=== PATIENT | male | born 1945 | race Caucasian/White ===

== ENCOUNTER 2021-02-09 11:12 | Inpatient (IN) | payer OTHER ==
[2021-02-09 11:35] LABS: Absolute Lymphocytes (CBC) 3.1 K/uL (0.7-4.9); Basophils % 0.8 % (0-1.3); Hematocrit 36.5 % (39.6-49.0); Lymphocytes % 37.4 % (15.3-44.8); MPV 7.7 fL (7.6-11.3); RBC Red Blood Cell Count 3.78 M/uL (4.33-5.43)
[2021-02-09 11:45] LABS: Protime INR 1.04
[2021-02-09 12:03] LABS: BUN Blood Urea Nitrogen 20 mg/dL (7-18); Bicarbonate 26 mmol/L (21-32); Glucose Level 121 mg/dL (74-106); NT PRO-BNP 185 pg/mL (<450); Potassium 3.7 mmol/L (3.5-5.1); Sodium Level 142 mmol/L (136-145); Troponin (Emerg Dept Use Only) < 0.02 ng/mL (0.0-0.045)
--- NOTE | 2021-02-09 12:50 | RAD REPORT ---
EXAM DESCRIPTION: CTAngio Aorta For Dissection - 02/09/2021 12:33 pm CLINICAL HISTORY: CHEST PAIN COMPARISON: No comparisons TECHNIQUE: CT of the chest, abdomen, and pelvis was performed. All CT scans are performed using dose optimization technique as appropriate and may include automated exposure control or mA/KV adjustment according to patient size. FINDINGS: Thorax: Chest Wall: No abnormal mass Lungs: Paraseptal emphysema. Dependent ground-glass opacities in the right lower lobe which may refle ct atelectasis. Left upper lobectomy. Pleura: No effusions or pneumothorax. Briana/Mediastinum: No lymphadenopathy. Thoracic Aorta: No aneurysm. Heart: Normal size. Mild coronary artery calcifications. Abdomen/Pelvis: Liver: No acute abnormality or suspicious lesions. Biliary: No biliary ductal dilatation. Stomach: Gastric wall thickening. There is discontinuity along the greater curvature of the stomach i n connection with the free air. This is suspicious for a gastric ulcer with perforation. Duodenum: No significant focal abnormality. Pancreas: No significant abnormality. Spleen: No significant abnormality. Adrenal: No suspicious lesions. Kidney/ureter: No hydronephrosis. No renal calculi. Too small to characterize and/or benign appearing renal lesions are noted. Retroperitoneum: No retroperitoneal adenopathy. Vascular: No aneurysm. Atherosclerosis. Bowel: No significant focal abnormality. Peritoneum: Moderate volume of free air. Small volume of ascites. No abscess identified . Bladder: Grossly unremarkable. Reproductive: No masses. Bones: No acute fracture. Multilevel degenerative changes are present in the spine. Severe central sp inal stenosis as a result of a disc bulge dorsal spurring at L5-S1. Other: n/a IMPRESSION: Pneumoperitoneum with findings concerning for gastric perforation. Recommend surgical co nsultation. No acute findings in the chest. No aortic aneurysm, aortic dissection, or pulmonary embolus identifie d. Discussed with Dada in the ED at 1240 on 02/09/21
--- NOTE | 2021-02-09 13:05 | ER ---
Nurse's Notes [facility] Name: Kyle Walker Age: 75 yrs Sex: Male : 1945 Arrival Date: 02/09/2021 Time: 11:15 Bed 8 Private MD: Diagnosis: Acute gastric ulcer with perforation Presentation: 02/09 11:15 Chief complaint: Patient states: CP and SOB began today while building a deck in his [facility] backyard (has been doing this past 3 days). Pain increases with coughing. Coronavirus screen: Vaccine status: Patient reports being unvaccinated. Client denies travel out of the [place] in the last 14 days. congestion, cough unrelated to allergies, shortness of breath, Client presents with at least one sign or symptom that may indicate coronavirus-19. Standard/surgical mask placed on the client. Ebola Screen: Patient denies travel to an Ebola-affected area in the 21 days before illness onset. Initial Sepsis Screen: Does the patient meet any 2 criteria? No. Patient's initial sepsis screen is negative. Does the patient have a suspected source of infection? No. Patient's initial sepsis screen is negative. Risk Assessment: Do you want to hurt yourself or someone else? Patient reports no desire to harm self or others. Onset of symptoms was February 09, 2021. 11:15 Method Of Arrival: EMS: [facility] 11:15 Acuity: YOLANDA 3 1 11:19 Chief complaint: EMS states: 2 SL nitro's, 324mg aspirin, 50 mcg fentanyl, 1 L NS bolus.ll1 Historical: - Allergies: 11:17 Codeine; ll1 - PMHx: 11:17 COPD; PTSD; 1 - PSHx: 11:17 RLL removed; ll1 - Immunization history:: Client reports having NOT received the Covid vaccine. - Social history:: Smoking status: Patient reports the use of cigarette tobacco products, smokes one pack cigarettes per day. - Family history:: not pertinent. - Hospitalizations: : No recent hospitalization is reported. Screenin:19 Abuse screen: Denies threats or abuse. Nutritional screening: No deficits noted. ll1 Tuberculosis screening: No symptoms or risk factors identified. 14:48 Fall Risk IV access (20 points). Total Farris Fall Scale indicates No Risk (0-24 pts). ll1 Assessment: 11:20 General: Appears uncomfortable, ill, Behavior is calm, cooperative, appropriate for ll1 age. Pain: Complains of pain in chest Pain radiates to back Pain began 1 day ago. Neuro: No deficits noted. Cardiovascular: Reports chest pain, shortness of breath, Heart tones S1 S2 Capillary refill < 3 seconds JVD is absent Patient's skin is warm and dry. Rhythm is regular Chest pain. Respiratory: Reports shortness of breath Airway is patent Trachea midline Respiratory effort is even, unlabored, Respiratory pattern is regular, symmetrical, Breath sounds are clear bilaterally. GI: Abdomen is flat, Bowel sounds present X 4 quads. Reports upper abdominal pain. 12:20 Reassessment: No changes from previously documented assessment. Patient and/or family ll1 updated on plan of care and expected duration. Pain level reassessed. 13:20 Reassessment: No changes from previously documented assessment. Patient and/or family ll1 updated on plan of care and expected duration. Pain level reassessed. Patient is alert, oriented x 3, equal unlabored respirations, skin warm/dry/pink. 14:20 Reassessment: No changes from previously documented assessment. Patient and/or family ll1 updated on plan of care and expected duration. Pain level reassessed. 14:47 Reassessment: No changes from previously documented assessment. Patient and/or family ll1 updated on plan of care and expected duration. Pain level reassessed. Patient is alert, oriented x 3, equal unlabored respirations, skin warm/dry/pink. Dr. Jarquin at bedside. Going to surgery. Vital Signs: 11:15 BP 138 / 75; Pulse 56; Resp 17; Pulse Ox 98% on R/A; Pain 8/10; ll1 11:21 Temp 97.6; Weight 77.11 kg; Height 6 ft. 3 in. (190.50 cm); ll1 13:10 BP 126 / 83; Pulse 74; Resp 17; Pulse Ox 99% ; ll1 14:34 BP 113 / 72; Pulse 66; Resp 21; Pulse Ox 98% ; ll1 14:46 BP 113 / 72; Pulse 72; Resp 18; Temp 98.7; Pulse Ox 97% on 2 lpm NC; Pain 6/10; ll1 11:21 Body Mass Index 21.25 (77.11 kg, 190.50 cm) 1 ED Course: 11:15 Patient arrived in ED. ll1 11:16 Son Cortés MD is Attending Physician. rn 11:17 Triage completed. 1 11:18 Arm band placed on Patient placed in an exam room, on a stretcher. ll1 11:18 Maintain EMS IV. Dressing intact. Good blood return noted. Site clean \T\ dry. Gauge \T\ ll 1 site: 18 G R FA. 11:21 Vivi Thomas, RN is Primary Nurse. 1 11:22 Patient has correct armband on for positive identification. Placed in gown. Bed in low mh5 position. Call light in reach. Side rails up X2. Warm blanket given. Pillow given. air sampling and monitoring on. Pulse ox on. NIBP on. 11:22 Initial lab(s) drawn, by me, sent to lab. Flu and/or RSV swab sent to lab. 5 12:13 XRAY Chest (1 view) In Process Unspecified. EDMS 12:33 CT Aorta for Dissection In Process Unspecified. EDMS 13:04 Omayra Quiroz MD is Hospitalizing Provider. rn 13:11 No provider procedures requiring assistance completed. Oxygen administration via nasal ll1 cannula \T\ 2L/min. 14:48 Patient admitted, IV remains in place. 1 Administered Medications: 12:49 Drug: fentaNYL (PF) 50 mcg {Note: rass 0.} Route: IVP; Site: right forearm; 1 13:10 Follow up: Response: No adverse reaction; Pain is decreased; RASS: Alert and Calm (0) [facility] 13:10 Drug: Zosyn (piperacillin-tazobactam) 3.375 grams Route: IVPB; Infused Over: 60 mins; 1 Site: right antecubital; 14:07 Follow up: Response: No adverse reaction; IV Status: Completed infusion; IV Intake: ll1 500ml 13:23 Drug: NS 0.9% 500 ml Route: IV; Rate: bolus; Site: right forearm; 1 13:44 Follow up: Response: No adverse reaction; IV Status: Completed infusion; IV Intake: ll1 500ml 13:44 Drug: fentaNYL (PF) 50 mcg {Note: rass 0.} Route: IVP; Site: right forearm; [facility] 14:08 Follow up: Response: No adverse reaction; Pain is decreased; RASS: Alert and Calm (0) ll1 Intake: 13:44 IV: 500ml; Total: 500ml. ll1 14:07 IV: 500ml; Total: 1000ml. ll1 Outcome: 13:05 Decision to Hospitalize by Provider. rn 14:48 Admitted to OR accompanied by tech, via stretcher. ll1 14:48 Condition: stable 14:48 Instructed on the need for admit, Demonstrated understanding of instructions. 15:03 Patient left the ED. ss Signatures: Dispatcher [employer] EDSon Mane MD MD rn Smirch, Shelby, RN RN ss Martinez, Maria [facility] Vivi Thomas RN RN ll1 Corrections: (The following items were deleted from the chart) 11:27 11:17 Social history: Smoking status: Patient reports the use of cigarette tobacco ll1 products, smokes one-half pack cigarettes per day, ll1
--- NOTE | 2021-02-09 13:06 | EDPHYS ---
Physician Documentation [facility] Name: Kyle Walker Age: 75 yrs Sex: Male : 1945 Arrival Date: 02/09/2021 Time: 11:15 Bed 8 Private MD: ED Physician Son Cortés HPI: 02/09 11:18 This 75 yrs old Male presents to ER via EMS with complaints of Chest Pain, rn Shortness Of Breath. 11:18 The patient or guardian reports chest pain that is located primarily in the anterior rn chest wall, left. Onset: just prior to arrival. The pain does not radiate. Associated signs and symptoms: Pertinent positives: shortness of breath, Pertinent negatives: abdominal pain, cough, lower extremity swelling, palpitations, syncope, vomiting. The chest pain is described as aching, sharp. Duration: The patient or guardian reports a single episode, that is still ongoing. Modifying factors: The symptoms are alleviated by nothing. the symptoms are aggravated by cough, deep breath. Severity of pain: At its worst the pain was moderate in the emergency department the pain is unchanged. The patient has not experienced similar symptoms in the past. The patient has not recently seen a physician. Patient reports digging post holes and backyard working on a deck for the last 3 days, has felt okay, upon using post hole triggers began to have left-sided chest pain, moves to the right, associated with shortness of breath, worse with deep breath. No fever/runny nose/productive cough. States has not felt sick or ill recently. Denies abdominal pain. Historical: - Allergies: 11:17 Codeine; ll1 - PMHx: 11:17 COPD; PTSD; ll1 - PSHx: 11:17 RLL removed; ll1 - Immunization history:: Client reports having NOT received the Covid vaccine. - Social history:: Smoking status: Patient reports the use of cigarette tobacco products, smokes one pack cigarettes per day. - Family history:: not pertinent. - Hospitalizations: : No recent hospitalization is reported. ROS: 11:20 Constitutional: Negative for fever, chills, and weight loss, Eyes: Negative for injury, rn pain, redness, and discharge, Neck: Negative for injury, pain, and swelling, Cardiovascular: Positive for chest pain Respiratory: Positive for shortness of breath Abdomen/GI: Negative for abdominal pain, nausea, vomiting, diarrhea, and constipation, Back: Negative for injury and pain, MS/Extremity: Negative for injury and deformity, Skin: Negative for injury, rash, and discoloration, Neuro: Negative for headache, weakness, numbness, tingling, and seizure. Exam: 11:20 Constitutional: This is a well developed, well nourished patient who is awake, alert, rn appears uncomfortable Head/Face: Normocephalic, atraumatic. Eyes: Pupils equal round and reactive to light, extra-ocular motions intact. Lids and lashes normal. Conjunctiva and sclera are non-icteric and not injected. Cornea within normal limits. Periorbital areas with no swelling, redness, or edema. ENT: No stridor Cardiovascular: Bradycardic, regular rhythm. No pulse deficits. Respiratory: No increased work of breathing, no retractions or nasal flaring. Abdomen/GI: Soft, non-tender Skin: Warm, dry MS/ Extremity: Pulses equal, no cyanosis. Neurovascular intact. Full, normal range of motion. Equal circumference. Neuro: Awake and alert, GCS 15 14:21 ECG was reviewed by the Attending Physician. rn Vital Signs: 11:15 BP 138 / 75; Pulse 56; Resp 17; Pulse Ox 98% on R/A; Pain 8/10; ll1 11:21 Temp 97.6; Weight 77.11 kg; Height 6 ft. 3 in. (190.50 cm); ll1 13:10 BP 126 / 83; Pulse 74; Resp 17; Pulse Ox 99% ; ll1 14:34 BP 113 / 72; Pulse 66; Resp 21; Pulse Ox 98% ; ll1 14:46 BP 113 / 72; Pulse 72; Resp 18; Temp 98.7; Pulse Ox 97% on 2 lpm NC; Pain 6/10; ll1 11:21 Body Mass Index 21.25 (77.11 kg, 190.50 cm) ll1 MDM: 11:16 Patient medically screened. rn 11:17 ED course: Patient given fentanyl and aspirin as well as nitro by EMS. Still having rn left-sided chest pain as well as right-sided chest pain.. 13:01 Differential diagnosis: acute myocardial infarction, acute pericarditis, coronary rn artery disease costochondritis, esophagitis, gastritis, gastroesophageal reflux disease (GERD), pancreatitis, pleurisy, pneumonia, pneumothorax, thoracic aortic disection, gastric ulcer, gastric perforation. Data reviewed: vital signs, nurses notes, lab test result(s), radiologic studies, CT scan. Data interpreted: environmental monitoring technician: rate is 56 beats/min, rhythm is regular, sinus bradycardia, with no ectopy, Interpretation: bradycardia, Pulse oximetry: on room air is 98 %. Interpretation: normal. Counseling: I had a detailed discussion with the patient and/or guardian regarding: the historical points, exam findings, and any diagnostic results supporting the discharge/admit diagnosis, lab results, radiology results, the need for further work-up and treatment in the hospital. Response to treatment: the patient's symptoms have mildly improved after treatment, and as a result, I will admit patient. Admission orders: after a detailed discussion of the patient's condition and case, the admit orders are written by me. ED course: Consulted with Dr. Jarquin for gastric perforation. Kai ordered. NPO.. 02/09 11:17 Order name: Basic Metabolic Panel; Complete Time: 12:04 rn 02/09 11:17 Order name: CBC with Diff; Complete Time: 12:04 rn 02/09 11:17 Order name: NT PRO-BNP; Complete Time: 12:04 rn 02/09 11:17 Order name: PT-INR; Complete Time: 12:04 rn 02/09 11:17 Order name: Troponin (emerg Dept Use Only); Complete Time: 12:04 rn 02/09 11:17 Order name: XRAY Chest (1 view) rn 02/09 11:17 Order name: EKG; Complete Time: 11:18 rn 02/09 11:17 Order name: CT Aorta for Dissection; Complete Time: 12:54 rn 02/09 12:58 Order name: SARS-COV-2 RT PCR EDOR 02/09 11:17 Order name: Cardiac monitoring; Complete Time: 11:30 rn 02/09 11:17 Order name: EKG - Nurse/Tech; Complete Time: 11:30 rn 02/09 11:17 Order name: IV Saline Lock; Complete Time: 11:22 rn 02/09 11:17 Order name: Labs collected and sent; Complete Time: 11: rn 02/09 11:17 Order name: O2 Per Protocol; Complete Time: 11:22 rn 02/09 11:17 Order name: O2 Sat Monitoring; Complete Time: 11: rn 02/09 12:44 Order name: NPO; Complete Time: 12:50 rn EC:21 Rate is 46 beats/min. Rhythm is regular. QRS [place] is Normal. [place] interval is normal. QRS rn interval is normal. QT interval is normal. No Q waves. T waves are Normal. No ST changes noted. Clinical impression: Sinus bradycardia. Interpreted by me. Reviewed by me. Administered Medications: 12:49 Drug: fentaNYL (PF) 50 mcg {Note: rass 0.} Route: IVP; Site: right forearm; ll1 13:10 Follow up: Response: No adverse reaction; Pain is decreased; RASS: Alert and Calm (0) ll1 13:10 Drug: Zosyn (piperacillin-tazobactam) 3.375 grams Route: IVPB; Infused Over: 60 mins; ll1 Site: right antecubital; 14:07 Follow up: Response: No adverse reaction; IV Status: Completed infusion; IV Intake: ll1 500ml 13:23 Drug: NS 0.9% 500 ml Route: IV; Rate: bolus; Site: right forearm; ll1 13:44 Follow up: Response: No adverse reaction; IV Status: Completed infusion; IV Intake: ll1 500ml 13:44 Drug: fentaNYL (PF) 50 mcg {Note: rass 0.} Route: IVP; Site: right forearm; ll1 14:08 Follow up: Response: No adverse reaction; Pain is decreased; RASS: Alert and Calm (0) ll1 Disposition: 13:01 Critical Care:. rn Disposition Summary: 02/09/21 13:05 Hospitalization Ordered Hospitalization Status: Inpatient Admission rn Provider: Omayra Quiroz rn Location: Telemetry/MedSurg (Inpatient) rn Condition: Fair rn Problem: new rn Symptoms: have improved rn Bed/Room Type: Standard rn Room Assignment: rn Diagnosis - Acute gastric ulcer with perforation rn Forms: - Medication Reconciliation Form rn - SBAR form glove turner time excluding procedures: 13:01 Critical care time: Bedside Care: 30 minutes, Consultation: 5 minutes, Family rn Intervention: 5 minutes. Total time: 40 minutes Signatures: Dispatcher [employer] EDMS Cortés, Son, MD MD rn William, Lynsay, RN RN ll1 Corrections: (The following items were deleted from the chart) 11:22 11:20 Constitutional: This is a well developed, well nourished patient who is awake, rn alert, appears uncomfortable Head/Face: Normocephalic, atraumatic. Eyes: Pupils equal round and reactive to light, extra-ocular motions intact. Lids and lashes normal. Conjunctiva and sclera are non-icteric and not injected. Cornea within normal limits. Periorbital areas with no swelling, redness, or edema. ENT: No stridor Cardiovascular: Regular rate and rhythm. No pulse deficits. Respiratory: No increased work of breathing, no retractions or nasal flaring. Abdomen/GI: Soft, non-tender Skin: Warm, dry MS/ Extremity: Pulses equal, no cyanosis. Neurovascular intact. Full, normal range of motion. Equal circumference. Neuro: Awake and alert, GCS 15 rn 11:27 11:17 Social history: Smoking status: Patient reports the use of cigarette tobacco ll1 products, smokes one-half pack cigarettes per day, ll1 12:01 11:17 CORONAVIRUS+MR.LAB.BRZ ordered. EDMS EDMS
[2021-02-09] MEDS ORDERED: FENTANYL CITR 100 MCG/2 ML ONE ×2 (13:09→16:00)
[2021-02-09] MEDS ORDERED: NA CHLORIDE 0.9% 100 ML ONE (13:18)
[2021-02-09] MEDS ORDERED: PIPERACIL/TAZO 3.375 GM VIAL IV ONE (13:18)
--- NOTE | 2021-02-09 13:24 | RAD REPORT ---
EXAM DESCRIPTION: Wang Single View02/09/2021 12:13 pm CLINICAL HISTORY: Chest pain COMPARISON: 2017 FINDINGS: The lungs appear clear of acute infiltrate. The heart is normal size. Pneumoperitoneum is present. IMPRESSION: Pneumoperitoneum. Refer to CT on the same date for additional findings
[2021-02-09] MEDS ORDERED: NA CHLORIDE 0.9% 500 ML ONE (13:44)
[2021-02-09] MEDS: FENTANYL CITR 100 MCG/2 ML ONE ×2 (15:36→15:46)
[2021-02-09] MEDS ORDERED: Ringers Lactate 1,000 ML IV ONE (15:37)
[2021-02-09] MEDS: BUPIVACAINE 0.25% PF 30 ML VIAL ONE ×2 (15:53→16:40)
[2021-02-09] MEDS ORDERED: LIDOCAINE 2% MPF 5 ML VIAL ONE (16:02)
[2021-02-09] MEDS ORDERED: propofoL 200 MG/20 ML VIAL IV ONE (16:02)
[2021-02-09] MEDS ORDERED: ROCURONIUM 50 MG/5 ML VIAL IV ONE (16:03)
[2021-02-09] MEDS ORDERED: dexAMETHasone 10 MG/ML VIAL ONE (16:53)
[2021-02-09] MEDS ORDERED: KETOROLAC 30 MG/ML INJ ONE (16:53)
[2021-02-09] MEDS ORDERED: ONDANSETRON 4 MG/2 ML VIAL ONE (16:53)
[2021-02-09] MEDS ORDERED: PANTOPRAZOLE INJ 80 MG in NA CHLORIDE 0.9% 250 ML IV SCH (17:00)
[2021-02-09] MEDS ORDERED: NEOSTIGMINE 1 MG/ML -5 ML ONE (17:13)
[2021-02-09] MEDS ORDERED: GLYCOPYRROLATE 0.2 MG/ML SYR ONE (17:13)
--- NOTE | 2021-02-09 17:15 | P.OP ---
Preoperative diagnosis: Perforated Intestines Postoperative diagnosis: Perforated Gastric Ulcer Primary procedure: Exploratory Laparotomy Secondary procedure: Bang patch repair of perforated gastric ulcer Anesthesia: GETA Local Estimated blood loss: <10cc Specimen: none Findings: Anterior Gastric Ulcer near pylorus Complications: None Drain(s): BRAD drain (10mm Flat) Transferred to: Recovery Room Condition: Good
[2021-02-09] MEDS ORDERED: ACETAMINOPHEN 500 MG TAB PO PRN (17:22)
[2021-02-09] MEDS ORDERED: ONDANSETRON 4 MG/2 ML VIAL IV PRN ×2 (17:22→17:39)
--- NOTE | 2021-02-09 17:28 | P.HP ---
Certification for Inpatient Patient admitted to: Inpatient With expected LOS: >2 Midnights Patient will require the following post-hospital care: None Practitioner: I am a practitioner with admitting privileges, knowledge of patient current condition, hospital course, and medical plan of care. Services: Services provided to patient in accordance with Admission requirements found in Title 42 Section 412.3 of the Code of Federal Regulations Patient History Date of Service: 02/09/21 Reason for admission: Epigastric pain History of Present Illness: Patient is a 75-year-old male with a past medical history significant for BPH, PTSD, COPD, HLD, GERD, depression who presents with complaint of epigastric pain that radiates to his chest wall area. Patient reported that he has been having symptoms intermittently for the past 4 months. Patient reported that pain became worse yesterday. Patient rated pain as 8/10 in severity and described as burning in quality. Patient reports associated signs and symptoms of dizziness. Patient denies any other signs and symptoms. Symptoms are aggravated or relieved by nothing. Patient decided to present to the hospital due to worsening symptoms. Allergies codeine Allergy (Verified 04/16/17 20:41) Nausea/Vomiting Home Medications: Aspirin [Aspirin EC 81 MG] 81 mg PO DAILY 04/16/17 Finasteride [Proscar*] 5 mg PO DAILY 04/16/17 Fluticasone/Salmeterol [Advair 250-50 Diskus] 1 puff IH BID 04/16/17 Sertraline [Zoloft*] 100 mg PO DAILY 04/16/17 Simvastatin 20 mg PO DAILY 04/16/17 Tamsulosin [Flomax*] 1 tab PO DAILY 04/16/17 Albuterol Sulfate [Proventil Hfa] 1 puff IH DAILY 06/24/17 Cetirizine HCl [Zyrtec] 10 mg PO DAILY 06/24/17 Cyanocobalamin (Vitamin B-12) [Vitamin B12] 2,500 mcg PO DAILY 06/24/17 Guaifenesin/Dextromethorphan [Mucus Dm 600-30 mg Tablet] 1 tab PO DAILY 06/24/17 - Past Medical/Surgical History Diabetic: No -: COPD -: PTSD -: KIRT PARTIAL LOBECTOMY -: SERGO CATARACT SX -: [employer] RX - Family History Mother -: Cancer Notes: lymphoma Sister -: Cancer Notes: breast cancer Father -: Cancer - Social History Smoking Status: Current every day smoker Counseled patient to stop smoking for: less than 10 minutes Smoking therapy provided: Yes Patient receptive to therapy: Yes Alcohol use: Yes CD- Drugs: No Caffeine use: Yes Place of Residence: Home Review of Systems General: Weakness Eyes: Unremarkable ENT: Unremarkable Respiratory: Unremarkable Cardiovascular: Unremarkable Gastrointestinal: Unremarkable Genitourinary: Unremarkable Musculoskeletal: Unremarkable Integumentary: Unremarkable Neurological: Other (Dizziness ) Lymphatics: Unremarkable Physical Examination - Vital Signs Temperature: 98.7 F Blood Pressure: 113/72 Pulse: 72 Respirations: 18 - Physical Exam General: Alert, In no apparent distress HEENT: Atraumatic, PERRLA, Mucous membr. moist/pink, EOMI, Sclerae nonicteric Neck: Supple, 2+ carotid pulse no bruit, No LAD, Without JVD or thyroid abnormality Respiratory: Clear to auscultation bilaterally, Normal air movement Cardiovascular: Regular rate/rhythm, Normal S1 S2 Gastrointestinal: Normal bowel sounds, No tenderness Musculoskeletal: No tenderness Integumentary: No rashes Neurological: Normal gait, Normal speech, Normal tone, Normal affect Lymphatics: No axilla or inguinal lymphadenopathy External genitalia: Deferred Rectal: Deferred - Studies Laboratory Data (last 24 hrs) 02/09/21 11:25: PT 12.0, INR 1.04 02/09/21 11:25: WBC 8.30, Hgb 12.5 L, Hct 36.5 L, Plt Count 208 02/09/21 11:25: Sodium 142, Potassium 3.7, BUN 20 H, Creatinine 1.13, Glucose 121 H Assessment and Plan - Plan --Epigastric pain. CT imaging indicates pneumoperitoneum with findings worrisome for gastric perforation. Patient placed on Protonix. Surgeon consulted. Plans to take patient to the OR. Will await further recommendation from surgeon. --COPD. Stable. Continue home medications. --BPH. Continue home medications when appropriate. --PTSD\depression. Continue home medications when appropriate. --Nicotine dependence. Patient placed on nicotine patch and counseled on tobacco cessation. --CKD 2. Stable. We will continue to monitor renal functions. --DVT prophylaxis with SCDs. I have had discussion about advanced directives with the patient during this hospital admission. Addressed code status and goals of care. Spent more than 30 minutes. Case discussed withpatient and nurse. The following document was completed using voice recognition software. This can produce hairmasters manager errors that can at times significantly distort words and phrases. Please interpret any aspect of the note that is nonsensical in light of this fact. Discharge Plan: Home Plan to discharge in: 48 Hours - Advance Directives Does patient have a Living Will: No Does patient have a Durable POA for Healthcare: No - Code Status/Comfort Care Code Status Assessed: Yes Code Status: Full Code Physician Review: Patient Assessed, Agree with Above Assessment and Plan Critical Care: No
[2021-02-09] MEDS: HYDROMORPHONE HCL 1 MG/ML INJ ONE ×2 (17:59→18:05)
--- NOTE | 2021-02-09 18:17 | CON ---
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 He noted that jorge bray had been doing vigorous activity and had significant pain after pulling up some ground, which requi red vigorous activity. His pain got progressively worse and as such, he came to the emergency room w ith the above-stated complaints. He has never had similar episodes before in the past. No sick cont acts. No recent travel. No food exposures. The onset was sudden, sharp, stabbing, globally over th e abdomen, but worse in the epigastric area. Denies fever, chills. No COVID exposures that he is aw are. Past Medical History: Significant for COPD and PTSD. Past Surgical History: He had a left lung nodule removal in 2017, I believe. Allergies: TO CODEINE. Home Medications: None Review of Systems: Ten-point review of systems other than HPI, denies. Social History: He admits to smoking. Denies drinking. Denies any recreational drug use. Physical Examination: Vital Signs: At the time of my examination, his blood pressure is 138/75, pulse is 56, respiratory r ate 17, his pulse ox 98% on room air. His pain was 8/10. General: He is awake, alert, oriented. Psychiatric: Appropriate, conversive. HEENT: Normocephalic. His sclerae were anicteric. His mucous membranes were somewhat dry. His paulino pharynx is clear. He has poor dentition. His skin has an overall an ashen appearance consistent wit h a longstanding smoking history. Neck: Supple without JVD. Chest: Normal expansion and excursion. Well healed surgical scars evident. Cardiovascular: Regular rate and rhythm. Pulmonary: As described. Abdomen: Firm, rigid, and tender to palpation globally. There is voluntary and involuntary guarding , worse in the epigastrium. There was rebound. There was guarding and positive peritonitis. Pelvis: Stable. Extremities: No clubbing, cyanosis, or edema. Laboratory Data: Revealed a white blood cell count of 8.3, hemoglobin 12.5, hematocrit 36.5, platele t count was 208, neutrophils were 51%. His PT 12.0, INR 1.04. Sodium 142, potassium 3.7, chloride 1 09, carbon dioxide 26, BUN 20, creatinine 1.3, glucose 121. Troponin was less than 0.02. Calcium 8. 8. ProBNP 185. COVID was negative. He had imaging performed, which included a CT dissection protoc ol, officially read as pneumoperitoneum with findings concerning for gastric perforation. No acute f indings in the chest. No aortic aneurysm, aortic dissection, or pulmonary embolus identified. Assessment And Plan: This is a 75-year-old male, who comes in with signs and symptoms of perforated viscus/intestines, likely gastroduodenal ulcer with perforation. 1.IV fluid hydration. 2.Antibiotic coverage. 3.Acid suppression. 4.I have explained risks, benefits, and alternatives of exploratory laparotomy, possible Bang patc h, possible bowel resection and indicated procedures, including, but not limited to bleeding, infecti on, damage to surrounding tissues, need for further operation and procedures. The patient agrees to proceed as indicated. Thank you for this interesting consult. BITA/ANANYA Voice ID: [id number] Report ID: [id number]
[2021-02-09] MEDS: D5.45NS W/KCL 20MEQ 1,000 ML IV SCH ×2 (19:00→20:31)
--- NOTE | 2021-02-09 19:41 | OP ---
Date of Procedure: 02/09/2021 Surgeon: Santhosh Jarquin MD, Preoperative Diagnosis: Perforated intestines. Postoperative Diagnosis: Perforated gastric ulcer. Procedures: 1.Exploratory laparotomy. 2.Bang patch repair of perforated gastric ulcer. 3.Abdominal washout. Anesthesia: General endotracheal. Estimated Blood Loss: Less than 10 cc. Specimen: None. Findings: Anterior gastric ulcer near the pylorus. Complications: None. Drains: 10 mm flat BRAD drain placed adjacent to Bang patch repair. Disposition: The patient transferred to recovery room in good condition. Procedure In Detail: After informed consent was obtained, patient was brought to the operating room, prepped and draped in the usual sterile fashion. After adequate anesthesia was achieved, an upper m idline incision was made down through subcutaneous tissues with a 10 blade scalpel. I dissected down through subcutaneous fat using electrocautery and exposed the linea alba. The linea alba was opened with electrocautery to expose the peritoneum. The peritoneum was opened sharply with the Metzenbaum scissors and opened the entire upper midline incision at this point under direct visualization with electrocautery. At this point, I began examination of the stomach as there was some murky fluid cons istent with a perforated peptic ulcer. I then palpated the duodenum and palpated proximally until an area of induration was palpated and a perforated gastric ulcer was appreciated on the anterior wall of the stomach. At this point after the perforated gastric ulcer was identified, I suctioned out the enteric contents circumferentially around and ultimately I utilized three 2-0 silk sutures circumfer entially around the ulcer site and ultimately I secured the vascularized pedicle of omentum into this area and secured it with a 3 sutures on the top as an anterior repair. At this point, the abdomen w as copiously irrigated with multiple liters of warm saline and then suctioned out with a pool sucker circumferentially throughout the entire abdominal compartment until the fluid was relatively clear. At this point, the NG tube was placed and I placed it along and adjacent to the repair and it was cliff jacqueline on low intermittent suction at this point. At this point, I replaced the remaining omentum over the anterior aspect of the repair. The Bang patch appeared to be good and intact. At this point, I then brought a 10 mm flat BRAD drain out through the left upper quadrant stab incision and placed it along the lesser curve of the stomach and secured to the skin with a 2-0 silk suture. I then closed the abdomen in its entirety using a #1 looped PDS suture in a running fashion with the abdominal fish in place. I then removed the abdominal fish and finished the closure at this point with good apposi tion of the abdominal wall. I then irrigated the skin and closed it with interrupted romana. A abena rile dressing was placed over top. The patient tolerated the procedure well without evidence of comp lication and transferred to PACU in good condition. All counts were correct at the end of the case. BITA/ANANYA Voice ID: [id number] Report ID: [id number]
[2021-02-09] MEDS: PANTOPRAZOLE INJ 80 MG in NA CHLORIDE 0.9% 250 ML IV SCH (20:32)
[2021-02-09] MEDS: DULERA 100/5 (MOMETASONE/FORMOTEROL) INHALER IH SCH (20:39)
[2021-02-09] MEDS: INSULIN -REGULAR HUMAN 50 UNIT/0.5 ML ML SQ SCH (21:00)
[2021-02-10 00:29] VITALS: BMI 21.2
[2021-02-10] MEDS: PIPER TAZO 3.375 GM in NA CHLORIDE 0.9% 100 ML IV SCH ×3 (01:18→17:26)
[2021-02-10] MEDS: D5.45NS W/KCL 20MEQ 1,000 ML IV SCH ×3 (03:47→19:00)
[2021-02-10] MEDS: PANTOPRAZOLE INJ 80 MG in NA CHLORIDE 0.9% 250 ML IV SCH ×3 (05:41→17:29)
[2021-02-10 06:11] LABS: Absolute Lymphocytes (CBC) 0.8 K/uL (0.7-4.9); Basophils % 0.2 % (0-1.3); Hematocrit 35.4 % (39.6-49.0); Lymphocytes % 5.7 % (15.3-44.8); MPV 7.9 fL (7.6-11.3); RBC Red Blood Cell Count 3.64 M/uL (4.33-5.43)
[2021-02-10 06:25] LABS: Magnesium 2.2 mg/dL (1.8-2.4); Phosphorus 2.2 mg/dL (2.5-4.9); Potassium 4.7 mmol/L (3.5-5.1)
[2021-02-10] MEDS: INSULIN -REGULAR HUMAN 50 UNIT/0.5 ML ML SQ SCH ×4 (07:30→21:00)
[2021-02-10] MEDS ORDERED: INFLUENZA VACCINE (for 6+ mo) 0.5 ML DOSE IMVAC ONE (08:00)
[2021-02-10] MEDS ORDERED: PNEUMOCOCCAL VACCINE 0.5 ML IMVAC ONE (08:00)
[2021-02-10] MEDS: ENOXAPARIN 40 MG/0.4 ML SQ SCH (09:00)
[2021-02-10] MEDS: HYDROMORPHONE HCL 1 MG/ML INJ IV PRN ×3 (09:41→20:57)
[2021-02-10] MEDS: NICOTINE 21 MG/PAT TD SCH (09:42)
[2021-02-10] MEDS: DULERA 100/5 (MOMETASONE/FORMOTEROL) INHALER IH SCH ×2 (09:44→20:34)
[2021-02-10] MEDS: ALBUTEROL INHALER 60 PUFF/8 GM IH SCH (09:44)
--- NOTE | 2021-02-10 13:20 | P.PN ---
Subjective Date of Service: 02/10/21 Chief Complaint: Epigastric pain Subjective: Improving (Pain much improved from pre-op, patient was ambulatory today, NGT was not secured.) Physical Examination - Vital Signs Temperature: 96.8 F Blood Pressure: 115/57 Pulse: 42 Respirations: 22 Pulse Ox (%): 98 - Physical Exam General: Alert, In no apparent distress, Cooperative HEENT: Mucous membr. moist/pink Respiratory: Diminished Cardiovascular: Regular rate/rhythm Gastrointestinal: Other (soft, mild appropriate TTP, ND, incision clean, romana in place, binder on, BRAD serosangunous) Assessment And Plan - Current Problems (Diagnosis) (1) Perforated gastric ulcer Current Visit: Yes Status: Acute Plan: - Continue NGT LIWS - serial exams - continue NPO, will get swallow study prior to removal of NGT or starting diet - keep abdominal binder - ambulate with assist - incentive spirometry - continue IV hydration - continue current pain regime - patient will need EGD as outpatient in 6-8 weeks - discussed with patient and patient's - continue medical management Physician Review: Patient Assessed, Agree with Above Assessment and Plan
--- NOTE | 2021-02-10 13:45 | P.PN ---
Subjective Date of Service: 02/10/21 Chief Complaint: Epigastric pain Patient denies abdominal pain today. No flatus or bowel. NG tube with minimal output. He is currently NPO. Physical Examination - Vital Signs Temperature: 96.8 F Blood Pressure: 115/57 Pulse: 42 Respirations: 22 Pulse Ox (%): 98 - Physical Exam General: Alert, In no apparent distress HEENT: Other (NG-tube to suction) Neck: JVD not distended Respiratory: Clear to auscultation bilaterally, Normal air movement Cardiovascular: No edema, Regular rate/rhythm, Normal S1 S2 Gastrointestinal: Soft and benign, Non-distended Musculoskeletal: No swelling Integumentary: No rashes Neurological: Normal strength at 5/5 x4 extr Assessment And Plan - Current Problems (Diagnosis) (1) Perforated gastric ulcer Current Visit: Yes Status: Acute (2) BPH (benign prostatic hyperplasia) Current Visit: No Status: Acute (3) COPD (chronic obstructive pulmonary disease) Onset Date: 04/18/17 Current Visit: No Status: Chronic Qualifiers: COPD type: chronic bronchitis Chronic bronchitis type: unspecified Qualified Code(s): J42 - Unspecified chronic bronchitis (4) Bradycardia Current Visit: Yes Status: Acute - Plan Dr. Jarquin is following. Patient is kept NPO NG-tube in place. Continue antibiotics. Continue IV Zosyn and IV Protonix Monitor urine output. Pain management as needed. Serial abdominal examination. Monitor heart rate closely. Continue telemetry. Physician Review: Patient Assessed, Agree with Above Assessment and Plan
[2021-02-10] MEDS: D5 0.45 NS 1,000 ML IV SCH (20:35)
[2021-02-11] MEDS: PANTOPRAZOLE INJ 80 MG in NA CHLORIDE 0.9% 250 ML IV SCH ×3 (00:22→21:00)
[2021-02-11] MEDS: PIPER TAZO 3.375 GM in NA CHLORIDE 0.9% 100 ML IV SCH ×3 (00:23→16:59)
[2021-02-11 05:02] LABS: Absolute Lymphocytes (CBC) 1.1 K/uL (0.7-4.9); Basophils % 0.1 % (0-1.3); Hematocrit 32.9 % (39.6-49.0); Lymphocytes % 8.7 % (15.3-44.8); MPV 7.7 fL (7.6-11.3); RBC Red Blood Cell Count 3.37 M/uL (4.33-5.43)
[2021-02-11 05:27] LABS: Magnesium 2.2 mg/dL (1.8-2.4); Phosphorus 1.9 mg/dL (2.5-4.9); Potassium 4.3 mmol/L (3.5-5.1)
[2021-02-11] MEDS: INSULIN -REGULAR HUMAN 50 UNIT/0.5 ML ML SQ SCH ×4 (06:00→18:00)
[2021-02-11] MEDS: D5 0.45 NS 1,000 ML IV SCH ×3 (06:36→21:00)
[2021-02-11 07:16] LABS: Blood Morphology Comment NOT SEEN (NOT SEEN); Platelet Estimate ADEQ
--- NOTE | 2021-02-11 08:07 | P.PN ---
Subjective Date of Service: 02/11/21 Chief Complaint: Epigastric pain Subjective: Improving (ambulatory in room, pain well controlled with IV pain meds, no acute events, no new complaints) Physical Examination - Vital Signs Temperature: 98.2 F Blood Pressure: 120/60 Pulse: 65 Respirations: 16 Pulse Ox (%): 98 - Physical Exam General: Alert, In no apparent distress, Cooperative Respiratory: Clear to auscultation bilaterally, Diminished Cardiovascular: Regular rate/rhythm Gastrointestinal: Other (soft, mild appropriate TTP, ND, binder in place, BRAD remains serosanguanous, dressings clean and dry) Assessment And Plan - Current Problems (Diagnosis) (1) Perforated gastric ulcer Current Visit: Yes Status: Acute Plan: - Continue NGT LIWS - serial exams - continue NPO, will get swallow study prior to removal of NGT or starting diet - keep abdominal binder - ambulate with assist - incentive spirometry - continue IV hydration - continue current pain regime - patient will need EGD as outpatient in 6-8 weeks - discussed with patient and patient's - continue medical management Physician Review: Patient Assessed, Agree with Above Assessment and Plan
[2021-02-11] MEDS: HYDROMORPHONE HCL 1 MG/ML INJ IV PRN ×5 (08:36→21:27)
[2021-02-11] MEDS: ENOXAPARIN 40 MG/0.4 ML SQ SCH (08:38)
[2021-02-11] MEDS: DULERA 100/5 (MOMETASONE/FORMOTEROL) INHALER IH SCH ×2 (08:38→21:21)
[2021-02-11] MEDS: NICOTINE 21 MG/PAT TD SCH (08:39)
[2021-02-11] MEDS: ALBUTEROL INHALER 60 PUFF/8 GM IH SCH (08:40)
[2021-02-11] MEDS ORDERED: PIPERACIL/TAZO 3.375 GM VIAL IV ONE (09:58)
[2021-02-11] MEDS ORDERED: NA CHLORIDE 0.9% 0 ML ONE (09:59)
--- NOTE | 2021-02-11 16:47 | EKG ---
Test Date: 2021-02-09 Test Time: 11:38:52 Regulatory Compliance Manager: MARTHA MEASUREMENT RESULTS: Intervals: Rate: 46 WY: 162 QRSD: 90 QT: 488 QTc: 427 Bastian: P: 70 WY: 162 QRS: 41 T: 61 INTERPRETIVE STATEMENTS: Marked sinus bradycardia Abnormal ECG Compared to ECG 04/16/2017 14:30:20 No significant changes Electronically Signed On 02-11-21 16:43:12 CDT by Jimenez Anne
--- NOTE | 2021-02-11 17:08 | P.PN ---
Subjective Date of Service: 02/11/21 Chief Complaint: Epigastric pain Patient reports epigastric pain No flatus or bowel. NG tube still in place with minimum output NPO. Physical Examination - Vital Signs Temperature: 98.1 F Blood Pressure: 135/64 Pulse: 56 Respirations: 20 Pulse Ox (%): 99 - Physical Exam General: Alert, In no apparent distress, Oriented x3 HEENT: Mucous membr. moist/pink Neck: JVD not distended Respiratory: Clear to auscultation bilaterally, Normal air movement Cardiovascular: No edema, Regular rate/rhythm, Normal S1 S2 Gastrointestinal: Non-distended, Tenderness (Epigastrium) Musculoskeletal: No swelling Integumentary: No rashes Neurological: Normal strength at 5/5 x4 extr Assessment And Plan - Current Problems (Diagnosis) (1) Perforated gastric ulcer Current Visit: Yes Status: Acute (2) BPH (benign prostatic hyperplasia) Current Visit: No Status: Acute (3) COPD (chronic obstructive pulmonary disease) Onset Date: 04/18/17 Current Visit: No Status: Chronic Qualifiers: COPD type: chronic bronchitis Chronic bronchitis type: unspecified Qualified Code(s): J42 - Unspecified chronic bronchitis (4) Bradycardia Current Visit: Yes Status: Acute - Plan Dr. Jarquin is following. NPO per Dr. Jarquin. NG-tube in place. Continue IV Zosyn and IV Protonix Monitor urine output. Pain management as needed. Stable bradycardia. Physician Review: Patient Assessed, Agree with Above Assessment and Plan
[2021-02-11] MEDS ORDERED: NA CHLORIDE 0.9% 100 ML ONE (17:15)
[2021-02-12] MEDS: HYDROMORPHONE HCL 1 MG/ML INJ IV PRN ×6 (00:16→20:12)
[2021-02-12] MEDS: PANTOPRAZOLE INJ 80 MG in NA CHLORIDE 0.9% 250 ML IV SCH ×4 (00:18→21:47)
[2021-02-12] MEDS: PIPER TAZO 3.375 GM in NA CHLORIDE 0.9% 100 ML IV SCH ×3 (00:30→16:20)
[2021-02-12] MEDS: D5 0.45 NS 1,000 ML IV SCH ×4 (04:02→21:00)
[2021-02-12] MEDS: INSULIN -REGULAR HUMAN 50 UNIT/0.5 ML ML SQ SCH ×4 (06:00→17:58)
[2021-02-12 06:38] LABS: Basophils % 0.2 % (0-1.3); Hematocrit 35.3 % (39.6-49.0); Lymphocytes % 10.8 % (15.3-44.8); MPV 8.2 fL (7.6-11.3); RBC Red Blood Cell Count 3.61 M/uL (4.33-5.43)
[2021-02-12 06:53] LABS: Magnesium 2.2 mg/dL (1.8-2.4); Phosphorus 1.3 mg/dL (2.5-4.9); Potassium 3.8 mmol/L (3.5-5.1)
[2021-02-12] MEDS: ALBUTEROL INHALER 60 PUFF/8 GM IH SCH (08:40)
[2021-02-12] MEDS: DULERA 100/5 (MOMETASONE/FORMOTEROL) INHALER IH SCH ×2 (08:40→20:13)
[2021-02-12] MEDS: ENOXAPARIN 40 MG/0.4 ML SQ SCH (08:41)
[2021-02-12] MEDS: NICOTINE 21 MG/PAT TD SCH (08:41)
[2021-02-12] MEDS ORDERED: POTASSIUM PHOS IN 0.9 % NACL 15 MMOL/250 ML BAG IV ONE (09:00)
--- NOTE | 2021-02-12 15:09 | P.PN ---
Subjective Date of Service: 02/12/21 Chief Complaint: Epigastric pain Patient denied any epigastric pain during my examination. There was a tinge of blood in the NGT. NG tube still in place with minimum output Patient kept NPO. Physical Examination - Vital Signs Temperature: 99.6 F Blood Pressure: 139/66 Pulse: 63 Respirations: 16 Pulse Ox (%): 98 - Physical Exam General: Alert, In no apparent distress, Oriented x3 HEENT: Other (NGT) Neck: JVD not distended Respiratory: Clear to auscultation bilaterally, Normal air movement Cardiovascular: No edema, Regular rate/rhythm, Normal S1 S2 Gastrointestinal: Soft and benign, Non-distended Musculoskeletal: No swelling Integumentary: No rashes Neurological: Normal strength at 5/5 x4 extr Assessment And Plan - Current Problems (Diagnosis) (1) Perforated gastric ulcer Current Visit: Yes Status: Acute (2) BPH (benign prostatic hyperplasia) Current Visit: No Status: Acute (3) COPD (chronic obstructive pulmonary disease) Onset Date: 04/18/17 Current Visit: No Status: Chronic Qualifiers: COPD type: chronic bronchitis Chronic bronchitis type: unspecified Qualified Code(s): J42 - Unspecified chronic bronchitis (4) Bradycardia Current Visit: Yes Status: Acute - Plan Dr. Jarquin is following. NPO NG-tube in place. Continue IV Zosyn and IV Protonix Good urine output Pain management as needed. Stable bradycardia. Diet per Dr. Jarquin.
[2021-02-13] MEDS: HYDROMORPHONE HCL 1 MG/ML INJ IV PRN ×5 (00:35→21:14)
[2021-02-13] MEDS: PIPER TAZO 3.375 GM in NA CHLORIDE 0.9% 100 ML IV SCH ×3 (00:39→16:55)
[2021-02-13] MEDS: D5 0.45 NS 1,000 ML IV SCH ×4 (00:40→21:14)
[2021-02-13] MEDS: PANTOPRAZOLE INJ 80 MG in NA CHLORIDE 0.9% 250 ML IV SCH ×4 (03:00→23:00)
[2021-02-13 05:47] LABS: Absolute Lymphocytes (CBC) 1.2 K/uL (0.7-4.9); Basophils % 0.3 % (0-1.3); Hematocrit 33.4 % (39.6-49.0); Lymphocytes % 11.5 % (15.3-44.8); MPV 7.3 fL (7.6-11.3); RBC Red Blood Cell Count 3.48 M/uL (4.33-5.43)
[2021-02-13] MEDS: INSULIN -REGULAR HUMAN 50 UNIT/0.5 ML ML SQ SCH ×5 (06:00→21:00)
[2021-02-13 06:01] LABS: Magnesium 1.9 mg/dL (1.8-2.4); Phosphorus 1.6 mg/dL (2.5-4.9); Potassium 3.6 mmol/L (3.5-5.1)
[2021-02-13] MEDS ORDERED: POTASSIUM PHOS IN 0.9 % NACL 15 MMOL/250 ML BAG IV ONE (08:00)
[2021-02-13] MEDS: NICOTINE 21 MG/PAT TD SCH (08:10)
[2021-02-13] MEDS: ENOXAPARIN 40 MG/0.4 ML SQ SCH (08:10)
[2021-02-13] MEDS: ALBUTEROL INHALER 60 PUFF/8 GM IH SCH (08:11)
[2021-02-13] MEDS: DULERA 100/5 (MOMETASONE/FORMOTEROL) INHALER IH SCH ×2 (08:11→21:15)
--- NOTE | 2021-02-13 09:10 | P.PN ---
Subjective Date of Service: 02/12/21 Chief Complaint: Epigastric pain Subjective: Improving Physical Examination - Vital Signs Temperature: 97.6 F Blood Pressure: 137/63 Pulse: 50 Respirations: 19 Pulse Ox (%): 97 - Physical Exam General: Alert, In no apparent distress, Cooperative Respiratory: Clear to auscultation bilaterally, Diminished Cardiovascular: Regular rate/rhythm Gastrointestinal: Other (soft, mild appropriate TTP, ND, BRAD serosang, NGT in place, incision is clean and dry, romana in place) Assessment And Plan - Current Problems (Diagnosis) (1) Perforated gastric ulcer Current Visit: Yes Status: Acute Plan: - Continue NGT LIWS - serial exams - continue NPO, will get swallow study prior to removal of NGT or starting diet - keep abdominal binder - ambulate with assist - incentive spirometry - continue IV hydration - continue current pain regime - patient will need EGD as outpatient in 6-8 weeks - discussed with patient and patient's - continue medical management Physician Review: Patient Assessed, Agree with Above Assessment and Plan
--- NOTE | 2021-02-13 09:13 | P.PN ---
Subjective Date of Service: 02/13/21 Chief Complaint: Epigastric pain Subjective: Improving Physical Examination - Vital Signs Temperature: 97.6 F Blood Pressure: 137/63 Pulse: 50 Respirations: 19 Pulse Ox (%): 97 - Physical Exam General: Alert, In no apparent distress, Cooperative Respiratory: Clear to auscultation bilaterally, Diminished Cardiovascular: Regular rate/rhythm Gastrointestinal: Other (soft, mild appropriate TTP, ND, incision is clean and dry, BRAD serous, NG bilious, binder in place) Assessment And Plan - Current Problems (Diagnosis) (1) Perforated gastric ulcer Current Visit: Yes Status: Acute Plan: - Continue NGT LIWS - serial exams - continue NPO, will get swallow study prior to removal of NGT or starting diet, will get upper GI today - keep abdominal binder - ambulate with assist - incentive spirometry - continue IV hydration - continue current pain regime - patient will need EGD as outpatient in 6-8 weeks - discussed with patient and patient's - continue medical management Physician Review: Patient Assessed, Agree with Above Assessment and Plan
--- NOTE | 2021-02-13 12:43 | RAD REPORT ---
EXAM DESCRIPTION: RAD - Upper GI Series Wo KUB - 02/13/2021 11:18 am CLINICAL HISTORY: assess for gastric leak, s/p brando patch 02/09 Abdominal pain COMPARISON: Angio Aorta For Dissection dated 02/09/2021 FINDINGS: An esophagram was performed with Gastrografin contrast and shows normal bolus formation an d normal initiation of swallowing. Primary peristalsis is normal. The stomach was then filled with co ntrast material. No leakage of Gastrografin from the stomach was seen. Contrast is seen to move into the duodenal C-loop without obstruction. Total fluoroscopy time: 1 minutes and 10 seconds Number of images acquired: 7 IMPRESSION: No leakage of contrast from the stomach was visualized.
--- NOTE | 2021-02-13 13:05 | P.PN ---
Subjective Date of Service: 02/13/21 Chief Complaint: Epigastric pain Patient denied any abdominal pain today. Small-bowel series unremarkable NG tube still in place with minimum output. Physical Examination - Vital Signs Temperature: 98.3 F Blood Pressure: 149/72 Pulse: 68 Respirations: 20 Pulse Ox (%): 95 - Physical Exam General: Alert, In no apparent distress, Oriented x3 HEENT: Mucous membr. moist/pink Neck: JVD not distended Respiratory: Clear to auscultation bilaterally, Normal air movement Cardiovascular: Regular rate/rhythm, Normal S1 S2 Gastrointestinal: Soft and benign, Non-distended Musculoskeletal: No swelling Integumentary: No rashes Neurological: Normal strength at 5/5 x4 extr Assessment And Plan - Current Problems (Diagnosis) (1) Perforated gastric ulcer Current Visit: Yes Status: Acute (2) BPH (benign prostatic hyperplasia) Current Visit: No Status: Acute (3) COPD (chronic obstructive pulmonary disease) Onset Date: 04/18/17 Current Visit: No Status: Chronic Qualifiers: COPD type: chronic bronchitis Chronic bronchitis type: unspecified Qualified Code(s): J42 - Unspecified chronic bronchitis (4) Bradycardia Current Visit: Yes Status: Acute - Plan Dr. Jarquin is following. Patient kept NPO NG-tube in place. Small-bowel series: No leakage in the stomach. Leukocytosis resolved Continue IV Zosyn and IV Protonix Good urine output Pain management as needed. Stable bradycardia. Swallow evaluation. NG tube removal and diet per Dr. Jarquin.
[2021-02-13] MEDS ORDERED: GLUCAGON 1 MG/VIAL IM PRN (18:06)
[2021-02-13] MEDS ORDERED: D50W 25 GM/50 ML SYRINGE IV PRN (18:06)
[2021-02-13 19:30] LABS: Urine Appearance CLEAR (Clear); Urine Bilirubin NEGATIVE (Negative); Urine Blood 1+ (Negative); Urine Color YELLOW (Yellow); Urine Glucose NEGATIVE (Negative); Urine Protein TRACE (Negative); Urine pH 6.5 (5.0-7.0)
[2021-02-13 19:52] LABS: Urine Bacteria <20 /HPF (NONE SEEN); Urine Microscopic Reflex ORDER UMIC
[2021-02-14] MEDS: PIPER TAZO 3.375 GM in NA CHLORIDE 0.9% 100 ML IV SCH ×2 (01:21→09:32)
[2021-02-14] MEDS: HYDROMORPHONE HCL 1 MG/ML INJ IV PRN ×2 (05:47→09:32)
[2021-02-14] MEDS: D5 0.45 NS 1,000 ML IV SCH ×4 (05:50→20:09)
[2021-02-14 06:28] LABS: Absolute Lymphocytes (CBC) 1.3 K/uL (0.7-4.9); Basophils % 0.2 % (0-1.3); Hematocrit 34.8 % (39.6-49.0); Lymphocytes % 11.8 % (15.3-44.8); MPV 7.8 fL (7.6-11.3); RBC Red Blood Cell Count 3.61 M/uL (4.33-5.43)
[2021-02-14 06:46] LABS: Magnesium 2.1 mg/dL (1.8-2.4); Phosphorus 1.8 mg/dL (2.5-4.9); Potassium 3.6 mmol/L (3.5-5.1)
[2021-02-14] MEDS: INSULIN -REGULAR HUMAN 50 UNIT/0.5 ML ML SQ SCH ×4 (07:30→20:10)
[2021-02-14] MEDS: PANTOPRAZOLE INJ 80 MG in NA CHLORIDE 0.9% 250 ML IV SCH (08:42)
[2021-02-14] MEDS: ENOXAPARIN 40 MG/0.4 ML SQ SCH (08:46)
[2021-02-14] MEDS: DULERA 100/5 (MOMETASONE/FORMOTEROL) INHALER IH SCH ×2 (08:46→20:09)
[2021-02-14] MEDS: NICOTINE 21 MG/PAT TD SCH (08:46)
[2021-02-14] MEDS: ALBUTEROL INHALER 60 PUFF/8 GM IH SCH (08:47)
[2021-02-14] MEDS ORDERED: NA CHLORIDE 0.9% 0 ML ONE (08:50)
--- NOTE | 2021-02-14 10:26 | P.PN ---
Subjective Date of Service: 02/14/21 Chief Complaint: Epigastric pain Subjective: Improving (Patient tolerated diet, feels well, no pain, passing gas, no nasuea or emesis.) Physical Examination - Vital Signs Temperature: 99.0 F Blood Pressure: 147/65 Pulse: 57 Respirations: 18 Pulse Ox (%): 95 - Physical Exam General: Alert, In no apparent distress, Cooperative Respiratory: Normal air movement Cardiovascular: Regular rate/rhythm Gastrointestinal: Other (soft, mild appropriate TTP, ND, BRAD serosang. Juan in place, clean and dry) Assessment And Plan - Current Problems (Diagnosis) (1) Perforated gastric ulcer Current Visit: Yes Status: Acute Plan: - Continue NGT LIWS - serial exams - Upper GI shows no leak, will advance diet, if tolerated anticipate DC in AM on 02/15 - keep abdominal binder - ambulate with assist - incentive spirometry - continue IV hydration - transition pain regime to PO - patient will need EGD as outpatient in 6-8 weeks - discussed with patient and patient's - continue medical management Physician Review: Patient Assessed, Agree with Above Assessment and Plan
--- NOTE | 2021-02-14 13:02 | P.PN ---
Subjective Date of Service: 02/14/21 Chief Complaint: Epigastric pain Patient denied any abdominal pain. NG tube is out. Patient is tolerating pureed diet. Physical Examination - Vital Signs Temperature: 99.0 F Blood Pressure: 147/65 Pulse: 57 Respirations: 18 Pulse Ox (%): 95 - Physical Exam General: Alert, In no apparent distress, Oriented x3 HEENT: Mucous membr. moist/pink Neck: JVD not distended Respiratory: Clear to auscultation bilaterally, Normal air movement Cardiovascular: No edema, Regular rate/rhythm, Normal S1 S2 Gastrointestinal: Soft and benign, Non-distended, Other (Abdominal binder in place.) Musculoskeletal: No swelling Integumentary: No rashes Neurological: Normal strength at 5/5 x4 extr Assessment And Plan - Current Problems (Diagnosis) (1) Perforated gastric ulcer Current Visit: Yes Status: Acute (2) BPH (benign prostatic hyperplasia) Current Visit: No Status: Acute (3) COPD (chronic obstructive pulmonary disease) Onset Date: 04/18/17 Current Visit: No Status: Chronic Qualifiers: COPD type: chronic bronchitis Chronic bronchitis type: unspecified Qualified Code(s): J42 - Unspecified chronic bronchitis (4) Bradycardia Current Visit: Yes Status: Acute - Plan Dr. Jarquin is following. NG-tube is out Small-bowel series: No leakage in the stomach. Leukocytosis resolved. Feeding started. Completed 5 days of IV antibiotic. Protonix drip transition to oral Protonix. Pain management as needed. Stable bradycardia. Swallow evaluation-mild dysphagia to thin liquids. PT to evaluate.
[2021-02-14] MEDS: HYDROCODONE/APAP 5/325 MG TAB PO PRN ×2 (14:32→23:32)
[2021-02-14] MEDS: PANTOPRAZOLE 40MG TABLET PO SCH (17:30)
[2021-02-15] MEDS: D5 0.45 NS 1,000 ML IV SCH ×2 (04:31→13:00)
[2021-02-15 06:13] LABS: Absolute Lymphocytes (CBC) 1.1 K/uL (0.7-4.9); Basophils % 0.3 % (0-1.3); Hematocrit 33.6 % (39.6-49.0); Lymphocytes % 11.9 % (15.3-44.8); MPV 7.4 fL (7.6-11.3); RBC Red Blood Cell Count 3.52 M/uL (4.33-5.43)
[2021-02-15 06:30] LABS: Magnesium 2.4 mg/dL (1.8-2.4); Potassium 3.9 mmol/L (3.5-5.1)
[2021-02-15] MEDS: INSULIN -REGULAR HUMAN 50 UNIT/0.5 ML ML SQ SCH ×2 (07:30→11:30)
[2021-02-15] MEDS: HYDROCODONE/APAP 5/325 MG TAB PO PRN ×2 (09:04→13:50)
[2021-02-15] MEDS: PANTOPRAZOLE 40MG TABLET PO SCH (09:05)
[2021-02-15] MEDS: ENOXAPARIN 40 MG/0.4 ML SQ SCH (09:06)
[2021-02-15] MEDS: NICOTINE 21 MG/PAT TD SCH (09:06)
[2021-02-15] MEDS: DULERA 100/5 (MOMETASONE/FORMOTEROL) INHALER IH SCH (09:06)
[2021-02-15] MEDS: ALBUTEROL INHALER 60 PUFF/8 GM IH SCH (09:07)
[2021-02-15 10:35] VITALS: O2SAT 97
--- NOTE | 2021-02-15 10:55 | P.PN ---
Subjective Date of Service: 02/15/21 Chief Complaint: Epigastric pain Subjective: Improving Physical Examination - Vital Signs Temperature: 98.1 F Blood Pressure: 138/63 Pulse: 52 Respirations: 18 Pulse Ox (%): 96 - Physical Exam General: Alert, In no apparent distress, Cooperative Respiratory: Clear to auscultation bilaterally, Normal air movement Cardiovascular: Regular rate/rhythm Gastrointestinal: Other (soft, mild appropriate TtP, ND, BRAD removed @ bedside today, romana clean and dry) Assessment And Plan - Current Problems (Diagnosis) (1) Perforated gastric ulcer Current Visit: Yes Status: Acute Plan: - keep abdominal binder - ambulate with assist - incentive spirometry - patient will need EGD as outpatient in 6-8 weeks - discussed with patient and patient's - ok to DC home from surgical standpoint on Protonix 40mg PO BID Physician Review: Patient Assessed, Agree with Above Assessment and Plan
--- NOTE | 2021-02-15 12:25 | P.DS ---
Admission Date: 02/09/21 Discharge Date: 02/15/21 Disposition: DC HOME/HOME HEALTH CARE Discharge Condition: FAIR Reason for Admission: Epigastric pain - Problems (1) Perforated gastric ulcer Current Visit: Yes Status: Acute (2) BPH (benign prostatic hyperplasia) Current Visit: No Status: Acute (3) COPD (chronic obstructive pulmonary disease) Onset Date: 04/18/17 Current Visit: No Status: Chronic Qualifiers: COPD type: chronic bronchitis Chronic bronchitis type: unspecified Qualified Code(s): J42 - Unspecified chronic bronchitis (4) Bradycardia Current Visit: Yes Status: Acute Brief History of Present Illness: 75-year-old male with a past medical history significant for BPH, PTSD, COPD, HLD, GERD, depression who presents with complaint of epigastric pain that radiates to his chest wall area. Patient reported that he has been having symptoms intermittently for the past 4 months. He rated pain as 8/10 in severity and described as burning in quality. CT dissection showed pneumoperitoneum and findings concerning for gastric perforation. Patient was admitted for further management. Hospital Course: Patient admitted to the medical floor and started on supportive measures including empiric IV Zosyn. He was also started on Protonix drip. General surgery was consulted, patient seen by the twin murcia came to OR for exploration and noted gastric perforation which was repaired with a patch. NG- tube to suction was left in as well as BRAD drain. Small-bowel follow-through a few days after surgery showed no leakage of gastric content. NG-tube removed patient started on a diet which he tolerated. Patient seen by PT for decreased mobility. He ambulated with a walker. Swallow evaluation was done and the patient had no significant dysphagia. Patient deemed stable for discharge. Vital Signs/Physical Exam: Temp Pulse Resp BP Pulse Ox 98.1 F 52 18 138/63 96 02/15/21 10:55 02/15/21 10:55 02/15/21 10:55 02/15/21 10:55 02/15/21 10:55 General: Alert, In no apparent distress, Oriented x3 HEENT: Mucous membr. moist/pink Neck: JVD not distended Respiratory: Clear to auscultation bilaterally, Normal air movement Cardiovascular: No edema, Regular rate/rhythm, Normal S1 S2 Gastrointestinal: Soft and benign, Non-distended Musculoskeletal: No swelling Integumentary: No rashes Neurological: Normal strength at 5/5 x4 extr Laboratory Data at Discharge: WBC 9.10 K/uL (4.3-10.9) D 02/15/21 05:46 Hgb 11.5 g/dL (13.6-17.9) L 02/15/21 05:46 Hct 33.6 % (39.6-49.0) L 02/15/21 05:46 Plt Count 239 K/uL (152-406) 02/15/21 05:46 PT 12.0 SECONDS (9.5-12.5) 02/09/21 11:25 INR 1.04 02/09/21 11:25 Sodium 141 mmol/L (136-145) 02/15/21 05:46 Potassium 3.9 mmol/L (3.5-5.1) 02/15/21 05:46 BUN 10 mg/dL (7-18) 02/15/21 05:46 Creatinine 0.93 mg/dL (0.55-1.3) 02/15/21 05:46 Glucose 118 mg/dL (74-106) H 02/15/21 05:46 Phosphorus 2.0 mg/dL (2.5-4.9) L 02/15/21 05:46 Magnesium 2.4 mg/dL (1.8-2.4) 02/15/21 05:46 Triglycerides 61 mg/dL (<150) 02/09/21 18:30 Cholesterol 163 mg/dL (<200) 02/09/21 18:30 HDL Cholesterol 52 mg/dL (40-60) 02/09/21 18:30 Cholesterol/HDL Ratio 3.13 02/09/21 18:30 Home Medications: Finasteride [Proscar*] 5 mg PO DAILY 04/16/17 Fluticasone/Salmeterol [Advair 250-50 Diskus] 1 puff IH BID 04/16/17 Sertraline [Zoloft*] 100 mg PO DAILY 04/16/17 Simvastatin 20 mg PO DAILY 04/16/17 Tamsulosin [Flomax*] 1 tab PO DAILY 04/16/17 Albuterol Sulfate [Proventil Hfa] 1 puff IH DAILY 06/24/17 Cetirizine HCl [Zyrtec] 10 mg PO DAILY 06/24/17 Cyanocobalamin (Vitamin B-12) [Vitamin B12] 2,500 mcg PO DAILY 06/24/17 Guaifenesin/Dextromethorphan [Mucus Dm 600-30 mg Tablet] 1 tab PO DAILY 06/24/17 Pantoprazole [Protonix Tab*] 40 mg PO BIDAC #84 tab 02/15/21 New Medications: Pantoprazole [Protonix Tab*] 40 mg PO BIDAC #84 tab Diet: low acid Activity: No lifting more than 10 lbs Followup: Santhosh Jarquin MD [ACTIVE - CAN ADMIT] - Unknown,U [Primary Care Provider] - Time spent managing pt's care (in minutes): 40
[2021-02-15 13:01] VITALS: BP 113/55; TEMP 97.9
== END 2021-02-15 14:18 | disposition home health service (06) | DRG 328 ==
LOC: ER 11:12 → OR 16:35 → 2ND 17:56
PROVIDERS: ADMIT Hospitalist; ATTEND Hospitalist
PROC: 0DU607Z Supplement Stomach with Autologous Tissue Substitute, Open Approach (ICD-10-PCS; principal; 2021-02-09 14:00)
DX: K25.1 Acute gastric ulcer with perforation (principal); N40.0 Benign prostatic hyperplasia without lower urinary tract symptoms; J44.9 Chronic obstructive pulmonary disease, unspecified; R00.1 Bradycardia, unspecified; F43.10 Post-traumatic stress disorder, unspecified; F17.210 Nicotine dependence, cigarettes, uncomplicated; F32.A Depression, unspecified; Z20.822 Contact with and (suspected) exposure to COVID-19
CPT/HCPCS: 36415; 71045; 71275; 74175; 74240; 80048; 80061; 81003; 81015; 82947; 83036; 83735; 83880; 84100; 84484; 85025; 85610; 90471; 92610; 93005; 94010; 94760; 96365; 96375; 97110; 97116; 97161; 97530; 99285; C9113; J1100; J1170; J1650; J2405; J2543; J2704; J2710; J3010; J7040; J7050; J7120; J7606; J7799; Q2035; Q9967; U0003

== ENCOUNTER 2022-09-02 09:52 | Emergency (ER) | payer OTHER ==
--- OUTSIDE RECORDS SUMMARY | 2022-09-02 09:55 | XMS REPORT | Continuity of Care Document ---
:1945 Author Organization [facility] t Address [address] [place] [address] [place] [address] Care Team Providers Name Role Phone LOUISE PRATT Attending Clinician Unavailable Louise Pratt MD Attending Clinician Pob, [facility] Main Attending Clinician Unavailable Doctor Unassigned, [place] Attending Clinician Unavailable Payers Payer Name Policy Type Policy Number Effective Date Expiration Date S elmer MEDICARE PART A [id number] 2010 \T\ B 00:00:00 PHYSICIAN MUTUAL [id number] 2020 00:00:00 Problems Condition Condition Condition Status Onset Resolution Last Treating Co mments Source Name Details Category Date Date Treatment Clinician Date No known No known Disease Unive rs active active ity of problems problems [facility] Allergies, Adverse Reactions, Alerts Allergy Allergy Status Severity Reaction(s) Onset Inactive Treating Comm ents Source Name Type Date Date Clinician Codeine Propensi Active Rash Univers ty to 1-11 ity of adverse 00:00: [place] reaction 00 [facility] [place] CODEINE DRUG Active Rash Univers INGREDI 1-11 ity of 00:00: [address] NO KNOWN Drug Active Univers ALLERGIE Class ity of S [facility] Social History Social Habit Start Date Stop Date Quantity Comments Source Sex Assigned At Uni versity [facility] Exposure to SARS-CoV-2 Not sure [facility] [place] (event) [facility] Smoking Status Start Date Stop Date Source Unknown if ever smoked Universit y [facility] Medications Ordered Filled Start Stop Current Ordering Indication Dosage Frequency Signature Comments Components Source Medication Medication Date Date Medication? Clinician (SIG) Name Name iohexol 2020- No 130mL 130 mL, Unive rs (OMNIPAQUE 120 -20 Intravenou it y of 350 16:30: 16:16 s, ONCE, 1 [place] BULK-150 00 :00 dose, Wed Medica l mL) 05/28/20 at Branch injection 1030, 130 mL Routine simvastatin 0 Yes 20mg Take 20 mg Univers 20 mg 1-11 by mouth ity of tablet 15:46: at [place] 08 bedtime. Medical Branch midodrine 5 0 Yes 5mg Take 5 mg U nivers mg tablet 1-11 by mouth. ity o f 15:46: [address] albuterol 0 Yes 2{puff} Inhale 2 U nivers 90 1-11 Puffs ity of mcg/actuati 15:46: every 6 Javed as on inhaler 08 (six) Medical hours as Branch needed for Wheezing or Shortness of Breath. tiotropium 0 Yes 1{puff} Inhale 1 Univers bromide 2.5 1-11 Puff. ity of mcg/actuati 15:46: [place] on Mist [address] [place] [address] fluticasone 0 Yes 1{puff} Inhale 1 Univers propion-michael 1-11 Puff every it y of meteroL 15:46: 12 [place] 250-50 08 (twelve) Medical mcg/dose hours. Branch inhalation disk simvastatin 0 Yes 20mg Take 20 mg Univers 20 mg 1-11 by mouth ity of tablet 15:46: at [place] [address] bedtime. Medical Branch midodrine 5 0 Yes 5mg Take 5 mg U nivers mg tablet 1-11 by mouth. ity o f 15:46: [address] albuterol 0 Yes 2{puff} Inhale 2 U nivers 90 1-11 Puffs ity of mcg/actuati 15:46: every 6 Javed as on inhaler 08 (six) Medical hours as Branch needed for Wheezing or Shortness of Breath. tiotropium 0 Yes 1{puff} Inhale 1 Univers bromide 2.5 1-11 Puff. ity of mcg/actuati 15:46: [place] on Mist 08 Medical Branch fluticasone 0 Yes 1{puff} Inhale 1 Univers propion-michael 1-11 Puff every it y of meteroL 15:46: 12 [place] 250-50 08 (twelve) Medical mcg/dose hours. Branch inhalation disk simvastatin 0 Yes 20mg Take 20 mg Univers 20 mg 1-11 by mouth ity of tablet 15:46: at [place] 08 bedtime. Medical Branch midodrine 5 0 Yes 5mg Take 5 mg U nivers mg tablet 1-11 by mouth. ity o f 15:46: [place] [address] Medical Branch albuterol 0 Yes 2{puff} Inhale 2 U nivers 90 1-11 Puffs ity of mcg/actuati 15:46: every 6 Javed as on inhaler 08 (six) Medical hours as Branch needed for Wheezing or Shortness of Breath. tiotropium 0 Yes 1{puff} Inhale 1 Univers bromide 2.5 1-11 Puff. ity of mcg/actuati 15:46: [place] on Mist 08 Medical Branch fluticasone 0 Yes 1{puff} Inhale 1 Univers propion-michael 1-11 Puff every it y of meteroL 15:46: 12 [place] [address] (twelve) Medical mcg/dose hours. Branch inhalation disk simvastatin 0 Yes 20mg Take 20 mg Univers 20 mg 1-11 by mouth ity of tablet 15:46: at [place] [address] bedtime. Medical Branch midodrine 5 Yes 5mg Take 5 mg U nivers mg tablet 1-11 by mouth. ity o f 15:46: [place] [address] Medical Branch albuterol 0 Yes 2{puff} Inhale 2 U nivers 90 1-11 Puffs ity of mcg/actuati 15:46: every 6 Javed as on inhaler 08 (six) Medical hours as Branch needed for Wheezing or Shortness of Breath. tiotropium 2020-0 Yes 1{puff} Inhale 1 Univers bromide 2.5 1-11 Puff. ity of mcg/actuati 15:46: [place] on Mist 08 Medical Branch fluticasone 0 Yes 1{puff} Inhale 1 Univers propion-michael 1-11 Puff every it y of meteroL 15:46: 12 [place] 250-50 08 (twelve) Medical mcg/dose hours. Branch inhalation disk simvastatin 2020-0 Yes 20mg Take 20 mg Univers 20 mg 1-11 by mouth ity of tablet 15:46: at [place] [address] bedtime. Medical Branch midodrine 5 Yes 5mg Take 5 mg U nivers mg tablet 1-11 by mouth. ity o f 15:46: [place] [address] Medical Branch albuterol Yes 2{puff} Inhale 2 U nivers 90 1-11 Puffs ity of mcg/actuati 15:46: every 6 Javed as on inhaler 08 (six) Medical hours as Branch needed for Wheezing or Shortness of Breath. tiotropium 0 Yes 1{puff} Inhale 1 Univers bromide 2.5 1-11 Puff. ity of mcg/actuati 15:46: [place] on Mist 08 Medical Branch fluticasone 0 Yes 1{puff} Inhale 1 Univers propion-michael 1-11 Puff every it y of meteroL 15:46: 12 [place] 250-50 08 (twelve) Medical mcg/dose hours. Branch inhalation disk simvastatin 0 Yes 20mg Take 20 mg Univers 20 mg 1-11 by mouth ity of tablet 15:46: at [place] 08 bedtime. Medical Branch midodrine 5 Yes 5mg Take 5 mg U nivers mg tablet 1-11 by mouth. ity o f 15:46: [place] [address] Medical Branch albuterol Yes 2{puff} Inhale 2 U nivers 90 1-11 Puffs ity of mcg/actuati 15:46: every 6 Javed as on inhaler 08 (six) Medical hours as Branch needed for Wheezing or Shortness of Breath. tiotropium 2020-0 Yes 1{puff} Inhale 1 Univers bromide 2.5 1-11 Puff. ity of mcg/actuati 15:46: [place] on Mist 08 Medical Branch fluticasone 0 Yes 1{puff} Inhale 1 Univers propion-michael 1-11 Puff every it y of meteroL 15:46: 12 [place] 250-50 08 (twelve) Medical mcg/dose hours. Branch inhalation disk tadalafiL 2020-0 Yes [id number] 20mg Take 1 U nivers (CIALIS) 20 1-11 tablet by ity of mg tablet 00:00: [place] needed for Medical Erectile Branch dysfunctio n (30 mins prior to sexual activity, 2-3 times/ week). tadalafiL 2020-0 Yes [id number] 20mg Take 1 U nivers (CIALIS) 20 1-11 tablet by ity of mg tablet 00:00: [place] 00 needed for Medical Erectile Branch dysfunctio n (30 mins prior to sexual activity, 2-3 times/ week). tadalafiL 0 Yes [id number] 20mg Take 1 U nivers (CIALIS) 20 1-11 tablet by ity of mg tablet 00:00: [place] 00 needed for Medical Erectile Branch dysfunctio n (30 mins prior to sexual activity, 2-3 times/ week). tadalafiL 0 Yes [id number] 20mg Take 1 U nivers (CIALIS) 20 1-11 tablet by ity of mg tablet 00:00: [place] 00 needed for Medical Erectile Branch dysfunctio n (30 mins prior to sexual activity, 2-3 times/ week). tadalafiL 0 Yes [id number] 20mg Take 1 U nivers (CIALIS) 20 1-11 tablet by ity of mg tablet 00:00: [place] 00 needed for Medical Erectile Branch dysfunctio n (30 mins prior to sexual activity, 2-3 times/ week). tadalafiL 0 Yes [id number] 20mg Take 1 U nivers (CIALIS) 20 1-11 tablet by ity of mg tablet 00:00: [place] 00 needed for Medical Erectile Branch dysfunctio n (30 mins prior to sexual activity, 2-3 times/ week). Vital Signs Vital Name Observation Time Observation Value Comments Source Systolic blood 2020-05-19 15:10:00 148 mm[Hg] Univer sity of pressure [facility] Diastolic blood 2020-05-19 15:10:00 58 mm[Hg] Unive rsity of pressure [facility] Heart rate 2020-05-19 15:10:00 54 /min [facility] Body temperature 2020-05-19 15:10:00 36.89 Hien [facility] Respiratory rate 2020-05-19 15:10:00 18 /min [facility] Body height 2020-05-19 15:10:00 190.5 cm [facility] Body weight 2020-05-19 15:10:00 80.105 kg [facility] BMI 2020-05-19 15:10:00 22.07 kg/m2 [facility] Procedures Procedure Date / Time Performed Performing Clinician Sourc e CBC WITH DIFF 2020-05-28 16:43:[facility] CT ABDOMEN PELVIS W WO 2020-05-28 16:25:00 [facility]att [facility] 2020-05-28 14:46:02 Doctor Unassigned, No [facility] POCT URINALYSIS AUTO 2020-05-19 15:11:00 Louise Pratt [facility] ASSIGNMENT OF BENEFITS 2020-05-19 14:56:54 Doctor Unassigned, No [facility] Encounters Start End Encounter Admission Attending Care Care Encounter Source Date/Time Date/Time Type Type Clinicians Facility Department ID 2020-06-16 2020-06-16 Outpatient R [facility] [id number] [facility] 14:00:00 14:00:00 LOUISE [facility] 2020-06-09 2020-06-09 [facility] [id number] Univers 00:00:00 00:00:00 Louise Romo [id number] i ty of [place] 4.2.7.2.686 [place] [facility] Professio [phone] [place] dical [place] [address] Branch Building 2020-05-28 2020-05-28 Hospital [facility] [id number] Univers 08:48:19 23:59:00 Encounter Louise Romo [id number] ity of [place] 4.2.7.2.686 [facility] [id number] [facility] 801 Branch 2020-05-28 2020-05-28 Statistical Developer Princess, Adc Lab Main [facility] 1.2.8 [id number] Univers 08:52:24 09:07:24 Visit Louise Pratt [id number] ity [place] [id number] [place] [facility] 353 [facility] 2020-05-28 2020-05-28 Outpatient R [facility] [id number] Univers 00:00:00 00:00:00 LOUISE ity [facility] 2020-05-28 2020-05-28 Orders Doctor LAITH [id number] Univers 00:00:00 00:00:00 Only Unassigned, KOKO 350.1.13.10 ity of [place] [facility] 4.2.7.2.686 Javed as [id number] [address] 2020-05-19 2020-05-19 Office [facility] [id number] Univers 08:58:00 09:45:27 Visit Louise Romo 350.1.13.10 i ty [place]2.7.2.[place] [phone] [facility] 204 [facility] 2020-05-19 2020-05-19 [facility] [id number] Univers 09:00:00 09:00:00 [facility] 2020-05-19 2020-05-19 Orders Doctor OZUNA [id number] [id number] Univers 00:00:00 00:00:00 Only Unassigned, KOKO 350.1.13.10 ity of [place] [facility] 4.2.7.2.686 Javed as [phone] [address] Results Test Description Test Time Test Comments Results Result [facility] e Comments CT ABDOMEN 2020-05-10 CT Abdomen and Pelvis Uni versity of PELVIS W WO 0 without and with [place] M edical CONTRAST 17:12:52 intravenous contrast. [facility] CLINICAL HISTORY: Gross Hematuria, known cause. DOSE: Up-to-date CT equipment and radiation dose reduction techniques wereemployed. CTDIvol: 5.76+5.87 mGy. DLP: ?279+301 mGy-cm. TECHNIQUE : Contiguous axial imaging from the level of the lung basesthrough the pubic symphysis were performed initially without contrast andsubsequently after the uncomplicated administration of Omnipaque contrastmaterial. Coronal and sagittal reconstructions were obtained. Auto mAand/or iterative reconstruction were used to reduce radiation dose. FINDINGS: ? Lower lungs: Clear. No pleural effusion or pericardial effusion. Liver, Gallbladder and Spleen: Normal. Peritoneum: ?No free air or free fluid. No lymphadenopathy. Pancreas and Adrenals: ?Unremarkable pancreas and adrenal glands. Kidneys and Ureters: ?No visible calculi in the renal collecting systems. No hydroureter or hydronephrosis. Hypodense lesions are seen, at least 3 inthe right kidney ranging from 6 mm to 3 cm. 3 lesions are also seen in theleft kidney, each measuring 7 mm or smaller. Vessels: Moderate atherosclerosis. Infrarenal segment of the abdominalaorta is 3 cm in diameter and aorta below the renal arteries is 2.6 cm. Retroperitoneum: No abnormal fluid or lymphadenopathy. Bowel: Mild constipation. No acute findings. Normal appendix is visualized. Bladder and Reproductive Organs: Thickened bladder brizuela and enlargedprostate gland noted. Bones: Moderate to severe degenerative disc disease at L5-S1 with vacuumphenomenon in the disc material, large disc osteophyte complex along withherniated vacuum field disc into the spinal canal noted causing spinalstenosis with severe thecal sac compression. Bilateral foraminal stenosisalso noted at L5-S1.Less severe degenerative disc disease at L4-L5 noted. Prominent Schmorl'snodes are seen in the vertebral endplates of lower thoracic spines,L1/L2/L3/L4. No aggressive bone lesions. No signs of AVN in the femoral heads. Soft tissues: Unremarkable. CONCLUSION: 1. No kidney stones or hydronephrosis. Bilateral hypodense kidney lesionsconsistent with renal cysts.2. Moderately enlarged prostate and thickened urinary bladder brizuela.3. Moderate atherosclerosis of the abdominal aorta with 3 cm maximumdiameter of the infrarenal segment of abdominal aorta. [facility], Radiant Results Inft User - 05/28/2020 11:14 AM CSTCT Abdomen and Pelvis without and with intravenous contrast.CLINICAL HISTORY: Gross Hematuria, known cause.DOSE: Up-to-date CT equipment and radiation dose reduction techniques wereemployed. CTDIvol: 5.76+5.87 mGy. DLP: 279+301 mGy-cm.TECHNIQUE : Contiguous axial imaging from the level of the lung basesthrough the pubic symphysis were performed initially without contrast andsubsequently after the uncomplicated administration of Omnipaque contrastmaterial. Coronal and sagittal reconstructions were obtained. Auto mAand/or iterative reconstruction were used to reduce radiation dose.FINDINGS: Lower lungs: Clear. No pleural effusion or pericardial effusion.Liver, Gallbladder and Spleen: Normal.Peritoneum: No free air or free fluid. No lymphadenopathy.Pancr eas and Adrenals: Unremarkable pancreas and adrenal glands.Kidneys and Ureters: No visible calculi in the renal collecting systems. No hydroureter or hydronephrosis. Hypodense lesions are seen, at least 3 inthe right kidney ranging from 6 mm to 3 cm. 3 lesions are also seen in theleft kidney, each measuring 7 mm or smaller. Vessels: Moderate atherosclerosis. Infrarenal segment of the abdominalaorta is 3 cm in diameter and aorta below the renal arteries is 2.6 cm.Retroperitoneum: No abnormal fluid or lymphadenopathy.Bowel : Mild constipation. No acute findings. Normal appendix is visualized.Bladder and Reproductive Organs: Thickened bladder brizuela and enlargedprostate gland noted.Bones: Moderate to severe degenerative disc disease at L5-S1 with vacuumphenomenon in the disc material, large disc osteophyte complex along withherniated vacuum field disc into the spinal canal noted causing spinalstenosis with severe thecal sac compression. Bilateral foraminal stenosisalso noted at L5-S1.Less severe degenerative disc disease at L4-L5 noted. Prominent Schmorl'snodes are seen in the vertebral endplates of lower thoracic spines,L1/L2/L3/L4.No aggressive bone lesions. No signs of AVN in the femoral heads.Soft tissues: Unremarkable.CONCLUSI ON:1. No kidney stones or hydronephrosis. Bilateral hypodense kidney lesionsconsistent with renal cysts.2. Moderately enlarged prostate and thickened urinary bladder brizuela.3. Moderate atherosclerosis of the abdominal aorta with 3 cm maximumdiameter of the infrarenal segment of abdominal aorta. CBC WITH DIFF 2020-05-28 16:50:00 Test Item Value Reference Range Interpretation Comme nts WBC (test code = 6690-2) See_Comment [A utomated message] The system which ge nerated this result transmit radu reference range: 4.20 - 1 0.70 10*3/?L. The reference r nasra was not used to interpr et this result as normal/abnor mal. RBC (test code = 789-8) See_Comment L [Au tomated message] The system which Care Thread nerated this result transmit radu reference range: 4.26 - 5 .52 10*6/?L. The reference r nasra was not used to interpr et this result as normal/abnor mal. HGB (test code = 718-7) 13.3 g/dL 12.2-16.4 HCT (test code = 4544-3) 40.9 % 38.4-49.3 MCV (test code = 787-2) 97.1 fL 81.7-95.6 H MCH (test code = 785-6) 31.6 pg 26.1-32.7 MCHC (test code = 786-4) 32.5 g/dL 31.2-35 RDW-SD (test code = 34798-7) 46.3 fL 38.5-51.6 RDW-CV (test code = 788-0) 12.9 % 12.1-15.4 PLT (test code = 777-3) See_Comment [Au tomated message] The system which Care Thread nerated this result transmit radu reference range: 150 - 32 8 10*3/?L. The reference range was not used to interpret th is result as normal/abnormal . MPV (test code = 45554-5) 8.9 fL 9.8-13 L NRBC/100 WBC (test code = See_Comment [ Automated message] The [id number]) system which Care Thread nerated this result transmit radu reference range: 0.0 - 10 .0 /100 WBCs. The reference r nasra was not used to interpr et this result as normal/abnor mal. NRBC x10^3 (test code = <0.01 See_Comment [Au tomated message] The [id number]) system which Care Thread nerated this result transmit radu reference range: 10*3/?L. The reference range was not u sed to interpret this result as normal/abnormal . GRAN MAT (NEUT) % (test code 46.8 % = 770-8) IMM GRAN % (test code = 0.50 % 2530347874) LYMPH % (test code = 736-9) 39.0 % MONO % (test code = 5905-5) 8.3 % EOS % (test code = 713-8) 4.6 % BASO % (test code = 706-2) 0.8 % GRAN MAT x10^3(ANC) (test 3.05 10*3/uL 1.99-6.95 code = 8552500884) IMM GRAN x10^3 (test code = 0.03 10*3/uL 0-0.06 [id number]) LYMPH x10^3 (test code = 2.54 10*3/uL 1.09-3.23 731-0) MONO x10^3 (test code = 0.54 10*3/uL 0.36-1.02 742-7) EOS x10^3 (test code = 0.30 10*3/uL 0.06-0.53 711-2) BASO x10^3 (test code = 0.05 10*3/uL 0.01-0.09 704-7) Lab Interpretation (test Abnormal code = 05327-8) [facility] URINALYSIS, [id number] 15:12:00 Test Item Value Reference Range Interpretation Comments POCT U SP GRAV (test code = 1.025 mg/dl 1.005-1.025 3255) POCT PH U (test code = 3254) 6.0 mg/dl 5-8 POCT U LEUK EST (test code = Negative Negative - Negative 3263) POCT U NIT (test code = 3262) Negative Negative - Negative POCT U PROT (test code = Negative Negative - Negative 3259) POCT U GLU (test code = 3256) Negative Negative - Negative POCT U KETONE (test code = Negative Negative - Negative 3258) POCT U UROBILI (test code = 0.2 mg/dl 0.2-1 3260) POCT U BILI (test code = Negative Negative - Negative 3261) POCT U BLD (test code = 3257) small Negative - Negative POCT U COLOR (test code = yellow 3266) POCT U APPEAR (test code = clear 3267) Lab Interpretation (test code Abnormal = 91976-6) [facility] URINALYSIS, [id number] 15:12:00 Test Item Value Reference Range Interpretation Comments POCT U SP GRAV (test code = 1.025 mg/dl 1.005-1.025 3255) POCT PH U (test code = 3254) 6.0 mg/dl 5-8 POCT U LEUK EST (test code = Negative Negative - Negative 3263) POCT U NIT (test code = 3262) Negative Negative - Negative POCT U PROT (test code = Negative Negative - Negative 3259) POCT U GLU (test code = 3256) Negative Negative - Negative POCT U KETONE (test code = Negative Negative - Negative 3258) POCT U UROBILI (test code = 0.2 mg/dl 0.2-1 3260) POCT U BILI (test code = Negative Negative - Negative 3261) POCT U BLD (test code = 3257) small Negative - Negative POCT U COLOR (test code = yellow 3266) POCT U APPEAR (test code = clear 3267) Lab Interpretation (test code Abnormal = 63944-3) [facility] COMPLETE [id number] 07:46:00 [facility]Name[facility] VALENTINO DALTON JStudy Date: 07/12/2016 08:41 AMMRN: [id number] Patient Location: [facility]: DOB: 1945 (M/d/yyyy)Gender: MaleAge: 71 yrs Ethnicity: WHeight: 75 in Weight: 188 lbBSA: 2.1 l8Sflyht For Study: Dyspnea History: DyspneaProceduresA complete two-dimensional transthoracic echocardiogram was performed (2D,M-mode, Doppler and color flow Doppler).MMode/2D Measurements and CalculationsRVDd: 2.5 cm LVIDd: 3.7cmIVSd: 1.6 cm LVIDs: 2.7 cmIVSs: 2.0 cm LVPWd: 1.6 cmLVPWs: 2.0 cm FS: 27.1 % % IVS thick: 22.8 %EDV(Teich): 57.1 mlESV(Teich): 26.4 mlEF(Teich): 53.7 % SV(Teich): 30.7 ml EPSS: 0.94 cmMV E-F slope: 12.6 cm/sec Ao root diam: 3.6 cm LVOT diam: 2.0 cmAo root area: 10.3 cm LVOT area: 3.3 cm2ACS: 2.2 cmLA dimension: 3.7 cm___ EDV(MOD-sp4): 55.0 ml SV(MOD-sp4): 34.0 mlESV(MOD-sp4): 21.0 mlEF(MOD-sp4): 61.8 %Doppler Measurements and CalculationsMV A dur: 0.22 sec MV V2max: 104.5 cm/secLV IVRT: 0.09 sec MV max P.4 mmHgMV V2 mean: 43.6 cm/secMV mean P.2 mmHgMV V2 VTI: 18.5 cmMVA(VTI): 3.7 cm2 Ao V2 max: 140.4 cm/sec LV V1 max P.3 mmHgAo max P.9 mmHg LV V1 mean P.6 mmHgAo V2 mean: 91.4 cm/sec LV V1 max: 91.0 cm/secAo mean P.3 mmHg LV V1 mean: 57.6 cm/secAo V2 VTI: 29.2 cm LV V1 VTI: 20.9 cmAVA(I,D): 2.3 cmAVA(V,D): 2.1 cm2 MR max iesha: 205.1 cm/sec SV(LVOT): 68.5 mlMR max P.8 mmHgMR mean iesha: 103.5 cm/secMR mean P.3mmHgMR VTI: 39.1 cm TR max iesha: 169.8 cm/sec RAP systole: 10.0 mmHgTR max P.6 mmHgRVSP(TR): 21.6 mmHgLeft VentricleThe left ventricle isnormal in size. There is mild concentric leftventricular hypertrophy. Ejection Fraction = 60-65%.Right VentricleThe right ventricle is normal size.AtriaThe left atrial size is normal. Right atrial size is normal. Theinteratrial septum is intact with no evidence for an atrial septal defect.Mitral ValveThe mitral valve is normal. There is mild mitral regurgitation.Tricuspid ValveThere is mild tricuspidregurgitation.Aortic ValveThe aortic valve opens well.Great VesselsThe aortic root is normal size.Per icardium/PleuralThere is no pericardial effusion.Interpretation SummaryThe left ventricle is normal in size.There is mild concentric left ventricular hypertrophy.Ejection Fraction = 60-65%.The right ventricle is normal size.The left atrial size is normal.Right atrial size is normal.The interatrial septum is intact with no evidence for an atrial septaldefect.The mitral valve is normal.There is mild mitral regurgitation.There is mild tricuspid regurgitation.The aortic valve opens well.The aortic root is normal size. _Marcial Ruiz MD 07/13/201607:46 AMPhysician: Electronically signed by:Referring Physician: SHAMAR PICHARDOPerformed By: Vimal Diaz THORAX W/O [id number] 10:11:[address] [id number] IMAGING REPORTPatient Name: VALENTINO DALTON of Service: [id number]: 71 Sex: M Order #: [id number] Room: OPEDOB: 1945 X- Ray Number: [id number] Record Number: [id number] Hospital Number: [id number] Physician: Yareli PICHARDOing Physician: WILLIAM PICHARDO chest without contrast 0934 hoursHistory: Lung nodule reported to be enlarging.There are no comparison CTs available.This CT exam was performed using one or more of the following dosereduction techniques: Automated exposure control, adjustment of the MAand/or KV according to patient size or use of iterative reconstructiontechnique.Findings:There is emphysema with multiple right apical bullae. There is somefibrosis in the apices.There is a trace amount pleural fluid on the left side.There is an incompletely healed sixth left posterior rib fracture which issubacute to chronic. This does not appear acute.There is no pneumothorax.There is a 5 mmnoncalcified pulmonary nodule right middle lobe and a 5 mmnoncalcified pulmonary nodule superior segment right lower lobe. Histologyis indeterminate. There is no dominant mass lesion visualized.There has been left upper lobectomy.There are a few calcified hilar lymph nodes and mediastinal lymph nodeslikely related to previous granulomatous infection.There is no aortic aneurysm.There is no focal lung consolidation.The visualized upper abdomen is unremarkable.Impression:2 5-mm noncalcified right lung pulmonary nodules as discussed above.Six-month follow-up study is suggested to document stability. There are nocomparison CTs available at the time of interpretation.Postsurgical changes.There is no definite dominant lung mass lesion seen.Emphysema.Electronically Signed By: Francisco Au M.D., 07/12/2016 10:08 AMLegally authenticated by JUDY CAZARES 2016-07-12 10:08:40
--- NOTE | 2022-09-02 10:56 | RAD REPORT ---
EXAM DESCRIPTION: RAD - Chest Single View - 09/02/2022 10:51 am CLINICAL HISTORY: left sided chest pain, rib pain Chest pain. COMPARISON: Chest Single View dated 08/05/2022; Chest Single View dated 02/09/2021; Chest Single View dated 04/16/2017 FINDINGS: Portable technique limits examination quality. The lungs are emphysematous but grossly clear. The heart is normal in size. No displaced fractures. IMPRESSION: Prominent emphysema.
[2022-09-02] MEDS ORDERED: ONDANSETRON 4 MG/2 ML VIAL ONE (11:01)
[2022-09-02 11:18] LABS: Absolute Lymphocytes (CBC) 1.7 K/uL (0.7-4.9); Hematocrit 30.2 % (39.6-49.0); Lymphocytes % 22.5 % (15.3-44.8); MCV 81.5 fL (80-100); MPV 7.6 fL (7.6-11.3); RBC Red Blood Cell Count 3.71 M/uL (4.33-5.43)
[2022-09-02 11:39] LABS: Potassium 4.2 mEq/L (3.5-5.1); Troponin High Sensitivity 5.7 pg/mL (<58.9)
[2022-09-02 11:41] LABS: ALT/SGPT 12 U/L (16-61); AST/SGOT 10 U/L (15-37); Albumin 3.2 g/dL (3.4-5.0); Alkaline Phosphatase 63 U/L (45-117); Bilirubin Total 0.2 mg/dL (0.2-1.0); Lipase 33 U/L (13-75); Protein, Total 7.5 g/dL (6.4-8.2)
[2022-09-02 11:49] LABS: Bilirubin Direct < 0.1 mg/dL (0-0.2)
[2022-09-02] MEDS ORDERED: NA CHLORIDE 0.9% 500 ML ONE (11:54)
--- NOTE | 2022-09-02 12:15 | RAD REPORT ---
EXAM DESCRIPTION: CT - Angio Aorta For Dissection - 09/02/2022 11:56 am CLINICAL HISTORY: Chest pain radiating to the back. left sided flank pain, abdominal pain COMPARISON: Angio Aorta For Dissection dated 08/05/2022; Angio Aorta For Dissection dated 02/09/2021 TECHNIQUE: CT angiography of the aorta was performed with MIPs. All CT scans are performed using dose optimization technique as appropriate and may include automated exposure control or mA/KV adjustment according to patient size. FINDINGS: A left aortic arch is present with normal branching pattern of the great vessels.No acute aortic finding is seen such as aneurysm, penetrating ulcer or dissection. The celiac axis, SMA, POOJA and renal arteries are patent. No evidence of pulmonary embolism. Mild diffuse COPD is present. Tiny areas of nodularity in both upper lobes appear unchanged. These ar e nonspecific. The liver demonstrates no focal mass or biliary dilatation.The spleen, pancreas, adrenal glands and k idneys are within normal limits for arterial phase imaging. Gastric thickening is again seen with diffuse small adjacent lymph nodes, largest measuring 12 mm. No bowel obstruction, free fluid or abscess.Normal appendix.No pathologic enlarged lymphadenopathy id entified.Mild aortoiliac atherosclerosis. Prominent degenerative spondylosis L5-S1. IMPRESSION: No acute aortic finding is demonstrated. There is moderate thickening seen in either stomach distally with adjacent small lymph nodes. Recomme nd upper endoscopy for direct visualization if not recently performed. Tiny nonspecific areas of nodularity both upper lobes [id number] COPD.
[2022-09-02] MEDS ORDERED: LIDOCAINE VISCOUS 2% SOLN 15 ML UDC ONE (13:04)
[2022-09-02] MEDS ORDERED: MAGNES/ALUMIN/SIMET 30ML UCUP ONE (13:04)
--- NOTE | 2022-09-02 13:58 | ER ---
Nurse's Notes [facility] Name: Kyle Walker Age: 77 yrs Sex: Male : 1945 Arrival Date: 09/02/2022 Time: 09:52 Bed 20 Private MD: Diagnosis: Abdominal pain, unspecified Presentation: 09/02 10:08 Chief complaint: Patient states: Cough, SOB, L sided trunk pain, nausea for 2 days. ll1 Coronavirus screen: Client denies travel out of the [place] in the last 14 days. At this time, the client does not indicate any symptoms associated with coronavirus-19. Ebola Screen: Patient denies travel to an Ebola-affected area in the 21 days before illness onset. Initial Sepsis Screen: Does the patient meet any 2 criteria? No. Patient's initial sepsis screen is negative. Does the patient have a suspected source of infection? No. Patient's initial sepsis screen is negative. Risk Assessment: Do you want to hurt yourself or someone else? Patient reports no desire to harm self or others. Onset of symptoms was September 01, 2022. 10:08 Method Of Arrival: Ambulatory ll1 10:08 Acuity: YOLANDA 3 ll1 Triage Assessment: 10:11 General: Appears uncomfortable, Behavior is calm, cooperative, appropriate for age. ll1 Pain: Complains of pain in L trunk. Respiratory: Reports shortness of breath cough that is pain with cough pain with respiration. Historical: - Allergies: 10:10 Codeine; ll1 - PMHx: 10:10 COPD; PTSD; hernia; ll1 - PSHx: 10:10 RLL removed; ulcer/abd SX; ll1 - Immunization history:: Adult Immunizations up to date. - Social history:: Smoking status: Patient reports the use of cigarette tobacco products, smokes one pack cigarettes per day. Screenin:00 [facility] ED Fall Risk Assessment (Adult) History of falling in the last 3 months, nj1 including since admission No falls in past 3 months (0 pts) Confusion or Disorientation No (0 pts) Intoxicated or Sedated No (0 pts) Impaired Gait No (0 pts) Mobility Assist Device Used No (0 pt) Altered Elimination No (0 pt) Score/Fall Risk Level 0 - 2 = Low Risk Oriented to surroundings, Maintained a safe environment, Hourly rounding (assess needs \T\ fall precautionary measures) done. 11:00 Abuse screen: Denies threats or abuse. Denies injuries from another. Nutritional nj1 screening: No deficits noted. Tuberculosis screening: No symptoms or risk factors identified. Assessment: 11:00 Reassessment: Patient appears in no apparent distress at this time. Patient and/or nj1 family updated on plan of care and expected duration. Pain level reassessed. Patient is alert, oriented x 3, equal unlabored respirations, skin warm/dry/pink. Pain: Complains of pain in Ribs, left side Pain radiates to back Pain currently is 8 out of 10 on a pain scale. Neuro: Level of Consciousness is awake, alert, obeys commands, Oriented to person, place, time, situation. Cardiovascular: Patient's skin is warm and dry. Respiratory: Airway is patent Respiratory effort is even, unlabored. 11:00 GI: Reports nausea. nj1 12:07 Reassessment: Patient appears in no apparent distress at this time. Patient and/or nj1 family updated on plan of care and expected duration. Pain level reassessed. Patient is alert, oriented x 3, equal unlabored respirations, skin warm/dry/pink. Patient states symptoms have improved. 14:25 Reassessment: No changes from previously documented assessment. Patient and/or family mb9 updated on plan of care and expected duration. Pain level reassessed. Patient is alert, oriented x 3, equal unlabored respirations, skin warm/dry/pink. Patient states feeling better. Patient states symptoms have improved. Vital Signs: 10:08 BP 148 / 72; Pulse 85; Resp 17; Temp 97.5; Pulse Ox 100% ; Weight 65.77 kg; Height 6 ll1 ft. 3 in. ; Pain 8/10; 12:27 BP 116 / 60; Pulse 48; Resp 17; Pulse Ox 100% ; nj1 14:25 BP 118 / 64; Pulse 58; Resp 18; Pulse Ox 99% ; mb9 10:08 Body Mass Index 18.12 (65.77 kg, 190.5 cm) [facility] 10:08 Pain Scale: Adult 1 ED Course: 09:55 Patient arrived in ED. mr 09:56 Paul Fox PA is PHCP. jmm 09:56 Keith Portillo DO is Attending Physician. jmm 10:10 Triage completed. ll1 10:34 Arm band placed on Patient placed in an exam room, on a stretcher. ll1 10:38 Franchesca Muhammad, RN is Primary Nurse. nj1 10:53 XRAY Chest (1 view) In Process Unspecified. EDMS 11:00 Patient has correct armband on for positive identification. Bed in low position. Call nj1 light in reach. Adult w/ patient. 11:00 Inserted saline lock: 20 gauge in right antecubital area, using aseptic technique. nj1 Blood collected. 11:58 CT Aorta for Dissection In Process Unspecified. EDMS 13:57 Kenny Ann MD is Referral Physician. m 14:26 No provider procedures requiring assistance completed. IV discontinued, intact, mb9 bleeding controlled, No redness/swelling at site. Pressure dressing applied. Administered Medications: 11:00 Drug: Ondansetron IVP 4 mg Route: IVP; Site: right antecubital; nj1 11:45 Follow up: Response: No adverse reaction nj1 12:07 Drug: NS 0.9% IV 500 ml Route: IV; Rate: bolus; Site: right antecubital; nj1 13:00 Drug: GI Cocktail without - (Maalox PO Suspension 30 ml, Lidocaine Mucous nj1 Membrane Liquid 2 % 15 ml) Route: PO; 13:41 Follow up: Response: No adverse reaction nj1 Outcome: 13:57 Discharge ordered by MD. m 14:26 Discharged to home ambulatory. mb9 14:26 Condition: stable 14:26 Discharge instructions given to patient, Instructed on discharge instructions, follow up and referral plans. Demonstrated understanding of instructions, follow-up care, medications, Prescriptions given X 3. 14:26 Patient left the ED. mb9 Signatures: Dispatcher [employer] EDMS Paul Fox PA PA jmm Rivera, Mary mr Lewis, Lynsay, RN RN 1 Kirti Vincent RN RN mb9 Franchecsa Muhammad, RN RN nj1
--- NOTE | 2022-09-02 13:58 | EDPHYS ---
Physician Documentation [facility] Name: Kyle Walker Age: 77 yrs Sex: Male : 1945 Arrival Date: 09/02/2022 Time: 09:52 Bed 20 Private MD: ED Physician Keith Portillo HPI: 09/02 10:03 This 77 yrs old Male presents to ER via Ambulatory with complaints of Rib pain. jmm 14:30 The patient presents with abdominal pain in the epigastric area. Onset: The jmm symptoms/episode began/occurred gradually, 1 day(s) ago. The symptoms radiate to left back. Associated signs and symptoms: Pertinent positives: nausea, shortness of breath, belching, Pertinent negatives: vomiting. Is a 77-year-old male with history of COPD, PTSD, peptic ulcer disease the presents emerged department with complaints of left-sided flank and rib pain, belching, nausea, shortness of breath. Denies any fall or injury to the ribs.. Historical: - Allergies: 10:10 Codeine; ll1 - PMHx: 10:10 COPD; PTSD; hernia; ll1 - PSHx: 10:10 RLL removed; ulcer/abd SX; ll1 - Immunization history:: Adult Immunizations up to date. - Social history:: Smoking status: Patient reports the use of cigarette tobacco products, smokes one pack cigarettes per day. ROS: 14:30 Constitutional: Negative for fever, chills, and weight loss, Cardiovascular: Negative jmm for chest pain, palpitations, and edema, Respiratory: Negative for shortness of breath, cough, wheezing, and pleuritic chest pain. 14:30 Abdomen/GI: Positive for abdominal pain, nausea. 14:30 All other systems are negative. Exam: 14:30 Constitutional: This is a well developed, well nourished patient who is awake, alert, jmm and in no acute distress. Head/Face: atraumatic. Eyes: EOMI, no conjunctival erythema appreciated ENT: Moist Mucus Membranes Neck: Trachea midline, Supple Chest/axilla: Normal chest wall appearance and motion. Cardiovascular: Regular rate and rhythm. No edema appreciated Respiratory: Normal respirations, no respiratory distress appreciated Abdomen/GI: Non distended Back: Normal ROM Skin: General appearance color normal MS/ Extremity: Moves all extremities, no obvious deformities appreciated, no edema noted to the lower extremities Neuro: Awake and alert Psych: Behavior is normal, Mood is normal, Patient is cooperative and pleasant Vital Signs: 10:08 BP 148 / 72; Pulse 85; Resp 17; Temp 97.5; Pulse Ox 100% ; Weight 65.77 kg; Height 6 ll1 ft. 3 in. ; Pain 8/10; 12:27 BP 116 / 60; Pulse 48; Resp 17; Pulse Ox 100% ; nj1 14:25 BP 118 / 64; Pulse 58; Resp 18; Pulse Ox 99% ; mb9 10:08 Body Mass Index 18.12 (65.77 kg, 190.5 cm) ll1 10:08 Pain Scale: Adult ll1 MDM: 10:03 Patient medically screened. [facility] 14:32 Differential diagnosis: non-specific abd pain, Peptic Ulcer Disease, Perf. Duodenal jmm Ulcer, Perf. Gastric Ulcer. Data reviewed: vital signs, nurses notes, lab test result(s), EKG, radiologic studies, CT scan. I considered the following discharge prescriptions or medication management in the emergency department Medications were administered in the Emergency Department. See MAR. Counseling: I had a detailed discussion with the patient and/or guardian regarding: the historical points, exam findings, and any diagnostic results supporting the discharge/admit diagnosis, lab results, radiology results, the need for outpatient follow up, to return to the emergency department if symptoms worsen or persist or if there are any questions or concerns that arise at home. 09/02 10:04 Order name: Basic Metabolic Panel; Complete Time: 11:40 [facility] 09/02 10:04 Order name: CBC with Diff; Complete Time: 11:38 [facility] 09/02 10:04 Order name: Troponin HS; Complete Time: 11:40 [facility] 09/02 10:09 Order name: Lipase; Complete Time: 11:49 [facility] 09/02 10:09 Order name: Hepatic Function; Complete Time: 11:49 [facility] 09/02 10:04 Order name: XRAY Chest (1 view); Complete Time: 11:00 [facility] 09/02 11:40 Order name: CT Aorta for Dissection; Complete Time: 12:16 [facility] 09/02 10:04 Order name: EKG; Complete Time: 10:05 [facility] 09/02 10:04 Order name: Cardiac monitoring; Complete Time: 11:18 [facility] 09/02 10:04 Order name: EKG - Nurse/Tech; Complete Time: 11:19 [facility] 09/02 10:04 Order name: IV Saline Lock; Complete Time: 11:18 [facility] 09/02 10:04 Order name: Labs collected and sent; Complete Time: 11:18 [facility] 09/02 10:04 Order name: O2 Per Protocol; Complete Time: 11:18 [facility] 09/02 10:04 Order name: O2 Sat Monitoring; Complete Time: 11:18 [facility] 09/02 13:21 Order name: EKG - Nurse/Tech: repeat; Complete Time: 14:11 [facility] Administered Medications: 11:00 Drug: Ondansetron IVP 4 mg Route: IVP; Site: right antecubital; nj1 11:45 Follow up: Response: No adverse reaction nj1 12:07 Drug: NS 0.9% IV 500 ml Route: IV; Rate: bolus; Site: right antecubital; nj1 13:00 Drug: GI Cocktail without - (Maalox PO Suspension 30 ml, Lidocaine Mucous nj1 Membrane Liquid 2 % 15 ml) Route: PO; 13:41 Follow up: Response: No adverse reaction nj1 Disposition: 19:05 Co-signature as Attending Physician, Keith SOSA was immediately available on-site ms3 in the Emergency Department for consultation in the care of the patient. Disposition Summary: 09/02/22 13:57 Discharge Ordered Location: Home [facility] Condition: Stable [facility] Diagnosis - Abdominal pain, unspecified [facility] Followup: [facility] - With: Kenny Ann MD - When: 2 - 3 days - Reason: Recheck today's complaints, Continuance of care, Re-evaluation by your physician Discharge Instructions: - Discharge Summary Sheet [facility] - Abdominal Pain, Adult [facility] Forms: - Medication Reconciliation Form [facility] - Thank You Letter [facility] - Antibiotic Education [facility] - Prescription Opioid Use [facility] Prescriptions: - Carafate 1 gram Oral Tablet - take 1 tablet by ORAL route 4 times per day take on an empty stomach, beginning jmm on waking and last dose at bedtime; 100 tablet; Refills: 0, Product Selection Permitted - Pepcid 20 mg Oral Tablet - take 1 tablet by ORAL route every 12 hours for 10 days; 20 tablet; Refills: 0, kristie Product Selection Permitted - dicyclomine 20 mg Oral Tablet - take 1 tablet by ORAL route 4 times per day As needed; 30 tablet; Refills: 0, kristie Product Selection Permitted Signatures: Dispatcher [employer] Paul Elkins PA PA jmm Lewis, Lynsay RN RN ll1 Keith Portillo DO DO ms3 Franchesca Muhammad RN RN nj1
[2022-09-02 14:37] VITALS: TEMP 97.5
[2022-09-02 14:41] VITALS: BP 118/64; O2SAT 99
--- NOTE | 2022-09-03 07:01 | EKG ---
Test Date: 2022-09-02 Test Time: 13:44:11 Card Brusher: JULEE MEASUREMENT RESULTS: Intervals: Rate: 48 WA: 160 QRSD: 96 QT: 438 QTc: 391 [place]: P: 74 WA: 160 QRS: 44 T: 76 INTERPRETIVE STATEMENTS: Sinus bradycardia Otherwise normal ECG Compared to ECG 09/02/2022 11:14:57 Uncertain supraventricular rhythm no longer present Myocardial infarct finding no longer present Electronically Signed On 09-03-22 06:59:54 CDT by Jimenez Anne
--- NOTE | 2022-09-06 12:45 | EKG ---
Test Date: 2022-09-02 Test Time: 11:14:57 Signal Fitter: JULEE MEASUREMENT RESULTS: Intervals: Rate: 47 HI: QRSD: 136 QT: 446 QTc: 394 [place]: P: HI: QRS: 54 T: 69 INTERPRETIVE STATEMENTS: Wide QRS rhythm Nonspecific intraventricular block Cannot rule out Septal infarct, age undetermined Abnormal ECG Compared to ECG 08/05/2022 08:33:30 Uncertain supraventricular rhythm now present Myocardial infarct finding now present Sinus bradycardia no longer present Atrial premature complex(es) no longer present Electronically Signed On 09-06-22 12:37:54 CDT by Jimenez Anne
== END 2022-09-02 14:26 | disposition home or self-care (01) ==
LOC: ER 09:52
DX: R10.9 Unspecified abdominal pain (principal); R05.9 Cough, unspecified; R11.0 Nausea; F17.210 Nicotine dependence, cigarettes, uncomplicated; Z88.5 Allergy status to narcotic agent
CPT/HCPCS: 93005 ×2; 85025; 80048; 36415; 80076; 84484; 83690; 71275; 74175; 71045; Q9967; J2405; J7040

== ENCOUNTER 2023-10-08 09:01 | Emergency (ER) | payer OTHER ==
--- OUTSIDE RECORDS SUMMARY | 2023-10-08 09:05 | XMS REPORT | Continuity of Care Document ---
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[employer] [id number] 2020 00:00:00 Problems Condition Name Condition Details Condition Category Status Onset Date Resolution Date Last Treatment Date Treating Clinician Comments Source No known active problems No known active problems Disease [facility] Allergies, Adverse Reactions, Alerts Allergy Name Allergy Type Status Severity Reaction(s) Onset Date Inactive Date Treating Clinician Comments Source Codeine Propensi ty to adverse reaction s Active Rash 05-19 00:00: 00 [facility] CODEINE DRUG INGREDI Active Rash 05-19 00:00: 00 [facility] NO KNOWN ALLERGIE S Drug Class Active [facility] Social History Social Habit Start Date Stop Date Quantity Comments Source Sex Assigned At [facility] Exposure to SARS-CoV-2 (event) Not sure [facility] Smoking Status Start Date Stop Date Source Unknown if ever smoked [facility] Medications Ordered Medication Name Filled Medication Name Start Date Stop Date Current Medication? Ordering Clinician Indication Dosage Frequency Signature (SIG) Comments Components Source iohexol (OMNIPAQUE 350 BULK-150 mL) injection 130 mL 05-28 16:30: 00 05-28 16:16 :00 No 130mL 130 mL, Intravenou s, ONCE, 1 dose, 05/28/20 at 1030, Routine [facility] simvastatin 20 mg tablet 05-19 15:46: 08 Yes 20mg Take 20 mg by mouth at bedtime. [facility] midodrine 5 mg tablet 05-19 15:46: 08 Yes 5mg Take 5 mg by mouth. [facility] albuterol 90 mcg/actuati on inhaler 05-19 15:46: 08 Yes 2{puff} Inhale 2 Puffs every 6 (six) hours as needed for Wheezing or Shortness of Breath. [facility] tiotropium bromide 2.5 mcg/actuati on Mist 05-19 15:46: 08 Yes 1{puff} Inhale 1 Puff. [facility] fluticasone propion-michael meteroL 250-50 mcg/dose inhalation disk 05-19 15:46: 08 Yes 1{puff} Inhale 1 Puff every 12 (twelve) hours. [facility] tadalafiL (CIALIS) 20 mg tablet 05-19 00:00: 00 Yes [id number] 20mg Take 1 tablet by mouth as needed for Erectile dysfunctio n (30 mins prior to sexual activity, 2-3 times/ week). [facility] Vital Signs Vital Name Observation Time Observation Value Comments S elmer Systolic blood pressure 2020-05-19 15:10:00 148 mm[Hg] [facility] Diastolic blood pressure 2020-05-19 15:10:00 58 mm[Hg] [facility] Heart rate 2020-05-19 15:10:00 54 /min [facility] Body temperature 2020-05-19 15:10:00 36.89 Hien [facility] Respiratory rate 2020-05-19 15:10:00 18 /min [facility] Body height 2020-05-19 15:10:00 190.5 cm [facility] Body weight 2020-05-19 15:10:00 80.105 kg [facility] BMI 2020-05-19 15:10:00 22.07 kg/m2 [facility] Procedures Procedure Date / Time Performed Performing Clinicia n Source CBC WITH DIFF 2020-05-28 16:43:00 Louise Pratt [facility] CT ABDOMEN PELVIS W WO CONTRAST 2020-05-28 16:25:00 Louise Pratt [facility] ASSIGNMENT OF BENEFITS 2020-05-28 14:46:02 Docto r Unassigned, Raymond [facility] POCT URINALYSIS AUTO 2020-05-19 15:11:00 Varun Pratt h [facility] ASSIGNMENT OF BENEFITS 2020-05-19 14:56:54 Docto r Unassigned, Raymond [facility] Encounters Start Date/Time End Date/Time Encounter Type Admission Type Attending Clinicians Care Facility Care Department Encounter ID Source 2020-06-16 14:00:00 2020-06-16 14:00:00 [id number] 2020-06-09 00:00:00 2020-06-09 00:00:00 Telephone Sergio [facility] [id number] [facility] 2020-05-28 08:48:19 2020-05-28 23:59:00 Hospital Encounter Louise Pratt [facility] [id number] [facility] 2020-05-28 08:52:24 2020-05-28 09:07:24 Veterinarian Poultry Visit Pob, [facility] [id number] [facility] 2020-05-28 00:00:00 2020-05-28 00:00:00 [facility] [id number] 2020-05-28 00:00:00 2020-05-28 00:00:00 Orders Only Doctor Unassigned, Raymond [facility] [id number] [id number] [id number] [facility] 2020-05-19 08:58:00 2020-05-19 09:45:27 [facility] [id number] [id number] [facility] 2020-05-19 09:00:00 2020-05-19 09:00:00 [facility] [id number] 2020-05-19 00:00:00 2020-05-19 00:00:00 Orders Only Doctor Unassigned, Raymond [facility] [id number] [facility] Results Test Description Test Time Test Comments Results Resul t Comments Source CT ABDOMEN PELVIS W WO CONTRAST 2020-05-10 0 17:12:52 CT Abdomen and Pelvis without and with intravenous contrast. CLINICAL HISTORY: Gross Hematuria, known cause. DOSE: [...] of the infrarenal segment of abdominal aorta. [facility], Radiant Results Inft User - 05/28/2020 11:14 [...] of the infrarenal segment of abdominal aorta. [facility], [id number] 15:12:00 * Test Item Value Reference Range Interpretation Comme nts POCT U SP GRAV (test code = 3255) 1.025 mg/dl 1.005-1.025 POCT PH U (test code = 3254) 6.0 mg/dl 5-8 POCT U LEUK EST (test code = 3263) Negative Negative - Negative POCT U NIT (test code = 3262) Negative Negative - Negati ve POCT U PROT (test code = 3259) Negative Negative - Negative POCT U GLU (test code = 3256) Negative Negative - Negati ve POCT U KETONE (test code = 3258) Negative Negative - Negative POCT U UROBILI (test code = 3260) 0.2 mg/dl 0.2-1 POCT U BILI (test code = 3261) Negative Negative - Negative POCT U BLD (test code = 3257) small Negative - Negati ve POCT U COLOR (test code = 3266) yellow POCT U APPEAR (test code = 3267) clear Lab Interpretation (test cod e = [id number]) [facility], [id number] 15:12:00 * Test Item Value Reference Range Interpretation Comme nts POCT U SP GRAV (test code = 3255) 1.025 mg/dl 1.005-1.025 POCT PH U (test code = 3254) 6.0 mg/dl 5-8 POCT U LEUK EST (test code = 3263) Negative Negative - Negative POCT U NIT (test code = 3262) Negative Negative - Negati ve POCT U PROT (test code = 3259) Negative Negative - Negative POCT U GLU (test code = 3256) Negative Negative - Negati ve POCT U KETONE (test code = 3258) Negative Negative - Negative POCT U UROBILI (test code = 3260) 0.2 mg/dl 0.2-1 POCT U BILI (test code = 3261) Negative Negative - Negative POCT U BLD (test code = 3257) small Negative - Negati ve POCT U COLOR (test code = 3266) yellow POCT U APPEAR (test code = 3267) clear Lab Interpretation (test cod e = 49964-8) Abnormal [facility] COMPLETE [id number] 07:46:00 [facility] REPORTName: VALENTINO DALTON JStudy Date: 07/12/2016 08:41 AMMRN: [id number] Patient Location: OPEHR: 60DOB: 1945 (M/d/yyyjoss)Gender: MaleAge: 71 yrs Ethnicity: WHeight: 75 in Weight: 188 lbBSA: 2.1 q2Mvflxw For Study: Dysp neaHistory: DyspneaProceduresA complete two-dimensional transthoracic echocardiogram was performed (2D,M-mode, Doppler and color flow Doppler).MMode/2D Measurements and CalculationsRVDd: 2.5 cm LVIDd: 3.7 cmIVSd: 1.6 cm LVIDs: 2.7 cmIVSs: 2.0 cm LVPWd: 1.6 cmLVPWs: 2.0 cm FS: 27.1 % % IVS thick: 22.8 %EDV(Teich): 57.1 mlESV(Teich): 26.4mlEF(Teich): 53.7 % SV(Teich): 30.7 ml EPSS: 0.94 cmMV E-F slope: 12.6 cm/sec Ao root diam: 3.6 cm LVOT diam: 2.0 cmAo root area: 10.3 cm LVOT area: 3.3 cm2ACS: 2.2 cmLA dimension: 3.7 cm EDV(MOD-sp4): 55.0 ml SV(MOD-sp4): 34.0 mlESV(MOD-sp4): 21.0 mlEF(MOD-sp4): 61.8 %Doppler Measurements and CalculationsMV A dur: 0.22 sec MV V2 max: 104.5 cm/secLV IVRT: 0.09 sec MV max [...] P.8 mmHgMR mean iesha: 103.5 cm/secMR mean P.3 mmHgMR VTI: 39.1 cm TR max iesha: 169.8 cm/sec RAP systole: 10.0 mmHgTR max P.6 mmHgRVSP(TR): 21.6 mmHgLeft VentricleThe left ventricle is normal in size. There is mild concentric leftventricular hypertrophy. Ejection Fraction = 60-65%.Right VentricleThe right ventricle is normal size.AtriaThe left atrial size is normal. Right atrial size is normal. Theinteratrial septum is intact with no evidence for an atrial se ptal defect.Mitral ValveThe mitral valve is normal. There is mild mitral regurgitation.Tricuspid ValveThere is mild tricuspid regurgitation.Aortic ValveThe aortic valve opens well.Great VesselsThe aortic root is normal size.Pericardium/PleuralThere is no pericardial effusion.Interpretation SummaryThe left ventricle is normal in size.There is mild concentric left ventricular hypertrophy.Ejection Fraction = 60-65%.The right ventricle is normal size.The left atrial size is normal.Right atrial sizeis normal.The interatrial septum is intact with no evidence for an atrial septaldefect.The mitral valve is normal.There is mild mitral regurgitation.There is mild tricuspid regurgitation.The aortic valve opens well.The aortic root is normal size. Marcial Ruiz MD 07/13/201607:46 AMPhysician: Electronically signed by:Referring Physician: SHAMAR PICHRADOPerformed By: Vimal Diaz THORAX W/O [id number] 10:11:[address] [id number] IMAGING REPORTPa tient Name: VALENTINO DALTON Neri of Service: [id number]: 71 Sex: M Order #: [id number] Room: OPEDOB: 1945 X-Ray Number: [id number] Record Number: [id number] Hospital Number: [id number] Physician: SHAMAR PICHARDOOrdering Physician: WILLIAM PICHARDO chest without contrast 0934 hoursHistory: Lung nodule reported to be enlarging.There are no comparison CTs available.This CT exam was performed using one or more of the following dosereduction techniques: Automated exposure control, adjustment of the MAand/or KV according to patient size or use of iterative reconstructiontechnique.Findings:There is emphysema with multiple right apical bullae. There is somefibrosis in the apices.There alice trace amount pleural fluid on the left side.There is an incompletely healed sixth left posterior rib fracture which issubacute to chronic. This does not appear acute.There is no pneumothorax.There is a 5 mm noncalcified pulmonary nodule right middle lobe and a [...] Signed By: Francisco Au M.D., 07/12/2016 10:08 Grupo authenticated by JUDY CAZARES 2016-07-12 10:08:40
[2023-10-08] MEDS ORDERED: ONDANSETRON 4 MG/2 ML VIAL ONE (09:40)
[2023-10-08] MEDS ORDERED: FAMOTIDINE 20 MG/2 ML VIAL IV ONE (09:40)
[2023-10-08] MEDS ORDERED: NA CHLORIDE 0.9% 1,000 ML ONE ×2 (09:40→10:21)
[2023-10-08 09:44] LABS: Absolute Basophils 0.1 K/uL (0-0.5); Absolute Eosinophils 0.2 K/uL (0-0.5); Absolute Lymphocytes (CBC) 1.6 K/uL (0.7-4.9); Absolute Neutrophil 8.5 K/uL (1.8-8.0); Basophils % 0.5 % (0-1.3); Eosinophils % 1.8 % (0-4.4); Hematocrit 37.7 % (39.6-49.0); Hemoglobin 12.5 g/dL (13.6-17.9); MCH 32.4 pg (27.0-35.0); MCHC 33.1 g/dL (32.0-36.0); MCV 97.9 fL (80-100); MPV 7.9 fL (7.6-11.3); Monocytes % 8.6 % (3.3-12.3); Neutrophils % 75.1 % (41.7-73.7); Platelets 257 thou/uL (152-406); RBC Red Blood Cell Count 3.85 M/uL (4.33-5.43); Red Cell Distribution Width 12.9 % (12.1-15.2)
[2023-10-08 09:50] LABS: PT Prothrombin Time 12.8 SECONDS (9.5-12.5); Protime INR 1.17
[2023-10-08 10:02] LABS: Anion Gap 6.4 mEq/L (5.0-15.0); Potassium 4.4 mEq/L (3.5-5.1); Troponin High Sensitivity 5.7 pg/mL (<58.9)
[2023-10-08] MEDS ORDERED: ACETYLCYST 6,000 MG/30 ML VIAL ONE (10:21)
--- NOTE | 2023-10-08 10:23 | RAD REPORT ---
EXAM DESCRIPTION: RAD - Chest Single View - 10/08/2023 10:14 am CLINICAL HISTORY: CHEST PAIN COMPARISON: Chest Single View dated 09/02/2022; Chest Single View dated 08/05/2022 FINDINGS: Lines: None. Lungs: No evidence of edema or pneumonia. Emphysema. Pleural: No significant pleural effusions or pneumothorax. Cardiac: The heart size is within normal limits. Mediastinum: Within normal limits. Bones: No acute fractures. Other: None IMPRESSION: No acute cardiopulmonary disease.
--- NOTE | 2023-10-08 10:36 | RAD REPORT ---
EXAM DESCRIPTION: CTChest Abdomen Pelvis W Cont - 10/08/2023 10:18 am CLINICAL HISTORY: CHEST PAIN COMPARISON: Angio Aorta For Dissection dated 09/02/2022; Angio Aorta For Dissection dated 08/05/2022 TECHNIQUE: CT of the chest, abdomen, and pelvis was performed. All CT scans are performed using dose optimization technique as appropriate and may include automated exposure control or mA/KV adjustment according to patient size. FINDINGS: Thorax: Chest Wall: No abnormal mass Lungs: Paraseptal emphysema. No acute process in the lungs. Some miniscule pulmonary nodules are agai n noted and probably of little clinical significance. Pleura: No effusions or pneumothorax. Briana/Mediastinum: No lymphadenopathy. Aorta/Pulmonary Arteries: Unremarkable Heart: Normal size. Mild coronary artery calcifications. Abdomen/Pelvis: Liver: No acute abnormality or suspicious lesions. Biliary: No biliary ductal dilatation. Stomach: Gastric antrum with focal area gastric wall thickening that could represent a large ulcer as well. No free air or perforation. Duodenum: No significant focal abnormality. Pancreas: Pancreatic atrophy. Spleen: No significant abnormality. Adrenal: No suspicious lesions. Kidney/ureter: No hydronephrosis. No renal calculi. Right renal cyst. Retroperitoneum: No retroperitoneal adenopathy. Vascular: No aneurysm. Atherosclerosis. Bowel: No bowel obstruction. Moderate formed stool. Normal appendix.. Peritoneum: Gastrohepatic ligament lymphadenopathy. Ventral abdominal wall laxity. Bladder: Grossly unremarkable. Reproductive: No masses. Bones: No acute fracture. Multilevel degenerative changes are present in the spine. Other: n/a IMPRESSION: Gastric mass with regional lymphadenopathy remains concerning for a gastric malignancy. There is a wide-mouth ulcer suspected without evidence of perforation or free air. Endoscopy could co nfirm these findings if none previously performed.
--- NOTE | 2023-10-08 11:02 | ER ---
Nurse's Notes [facility] Name: Kyle Walker Age: 78 yrs Sex: Male : 1945 Arrival Date: 10/08/2023 Time: 09: Bed 4 Private MD: Diagnosis: Gastritis, unspecified, without bleeding;Malignant neoplasm of stomach, unspecified-local adenopathy, metasisis;Tobacco abuse counseling;Tobacco use Presentation: 10/07 09:20 Chief complaint: Patient states: LUQ pain that radiates to L chest and RUQ, also c/o ph nausea and increased SOB, no V/D or fever. Coronavirus screen: Vaccine status: Patient reports being unvaccinated. Ebola Screen: No symptoms or risks identified at this time. Initial Sepsis Screen: Does the patient meet any 2 criteria? No. Patient's initial sepsis screen is negative. Does the patient have a suspected source of infection? No. Patient's initial sepsis screen is negative. Risk Assessment: Do you want to hurt yourself or someone else? Patient reports no desire to harm self or others. Onset of symptoms was October 08, 2023. 09:20 Method Of Arrival: Ambulatory ph 09:20 Acuity: YOLANDA 3 ph Triage Assessment: 09:21 General: Appears in no apparent distress. Behavior is calm, cooperative. Pain: ph Complains of pain in left upper quadrant Pain radiates to chest and right upper quadrant. Neuro: Level of Consciousness is awake, alert, obeys commands, Oriented to person, place, time, situation. Cardiovascular: Capillary refill < 3 seconds in bilateral fingers Patient's skin is warm and dry. Respiratory: Reports shortness of breath on exertion Airway is patent Respiratory effort is even, unlabored, Respiratory pattern is regular, symmetrical. GI: Reports upper abdominal pain, nausea, Patient currently denies diarrhea, vomiting. : No signs and/or symptoms were reported regarding the genitourinary system. Derm: Skin is pink, warm \T\ dry. Musculoskeletal: Circulation, motion, and sensation intact. Range of motion: intact in all extremities. Historical: - Allergies: 09:15 Codeine; ll1 - PMHx: 09:15 COPD; Hernia; PTSD; ll1 - PSHx: :15 RLL removed; ulcer/abd SX; ll1 - Immunization history:: Adult Immunizations up to date. - Infectious Disease History:: Denies. - Family history:: not pertinent. - Social history:: Smoking status: Patient reports the use of cigarette tobacco products, smokes one pack cigarettes per day. Screenin:22 [facility] ED Fall Risk Assessment (Adult) History of falling in the last 3 months, ph including since admission No falls in past 3 months (0 pts) Confusion or Disorientation No (0 pts) Intoxicated or Sedated No (0 pts) Impaired Gait No (0 pts) Mobility Assist Device Used No (0 pt) Altered Elimination No (0 pt) Score/Fall Risk Level 0 - 2 = Low Risk Oriented to surroundings, Maintained a safe environment, Hourly rounding (assess needs \T\ fall precautionary measures) done. Abuse screen: Denies threats or abuse. Denies injuries from another. Nutritional screening: No deficits noted. Tuberculosis screening: No symptoms or risk factors identified. Assessment: 09:23 General: SEE TRIAGE ASSESSMENT. ph Vital Signs: 09:20 BP 140 / 73; Pulse 61; Resp 18; Temp 97.7; Pulse Ox 100% on R/A; Weight 74.84 kg; ph Height 6 ft. 3 in. ; Pain 9/10; 09:49 BP 129 / 69; Pulse 59; Resp 18; Pulse Ox 100% on R/A; ph 11:33 BP 145 / 65; Pulse 54; Resp 16; Pulse Ox 96% ; bp 09:20 Body Mass Index 20.62 (74.84 kg, 190.5 cm) ph 09:20 Pain Scale: Adult ph Vitals: 09:49 Cardiac Rhythm Assessment Sinus prakash. ph ED Course: 09:07 Patient arrived in ED. ra3 09:07 Adalid Jean MD is Attending Physician. gaston 09:15 Arm band placed on Patient placed in an exam room, on a stretcher. ll1 09:20 Gale Shaw, RN is Primary Nurse. ph 09:21 Triage completed. ph 09:23 Patient has correct armband on for positive identification. Placed in gown. Bed in low ph position. Call light in reach. Side rails up X 1. Client placed on continuous cardiac and pulse oximetry monitoring. NIBP monitoring applied. wheel alignment technician on. Door closed. Noise minimized. 09:23 EKG done, by ED staff, reviewed by Adalid Jean MD. hb 09:24 Provided Education on: tests, result times, use of call light. hb 09:26 Client placed on continuous cardiac and pulse oximetry monitoring. NIBP monitoring hb applied. wheel alignment technician on. Pulse ox on. NIBP on. 09:49 Initial lab(s) drawn, by me, sent to lab. Inserted saline lock: 20 gauge in left ph antecubital area, using aseptic technique. Blood collected. 09:49 Troponin HS Sent. ph 09:49 PT-INR Sent. ph 09:49 CBC with Diff Sent. ph 09:49 Basic Metabolic Panel Sent. ph 09:49 Lipase Sent. ph 10:16 XRAY Chest (1 view) In Process Unspecified. EDMS 10:20 CT Chest, Abdomen, Pelvis - W/Contrast In Process Unspecified. EDMS 10:59 Kenny Ann MD is Referral Physician. gaston 11:12 Santhosh Jarquin MD is Referral Physician. gaston 11:33 No provider procedures requiring assistance completed. IV discontinued, intact, bp bleeding controlled, No redness/swelling at site. Pressure dressing applied. Administered Medications: 09:49 Drug: NS 0.9% IV 1000 ml IV at 1 bolus Per protocol; 1000 mL bolus Route: IV; Rate: 1 ph bolus; Site: left antecubital; 11:35 Follow up: IV Status: Completed infusion; IV Intake: 1000ml bp 09:49 Drug: Famotidine IVP 20 mg IVP once; dilute with 10 mL 0.9% NaCl; give over 2 minutes ph Route: IVP; Site: left antecubital; 11:35 Follow up: Response: No adverse reaction bp 09:49 Drug: Ondansetron IVP 4 mg IVP once; over 2 minutes Route: IVP; Site: left antecubital; ph 11:35 Follow up: Response: No adverse reaction bp 10:26 Drug: Mucomyst - Acetylcysteine PO 600 mg PO once Route: PO; bp 11:35 Follow up: Response: No adverse reaction bp 10:26 Drug: NS 0.9% IV 1000 ml IV at 1 bolus Per protocol; 1000 mL bolus Route: IV; Rate: 1 bp bolus; Site: left antecubital; 11:35 Follow up: IV Status: Completed infusion; IV Intake: 1000ml bp 11:15 Drug: Pantoprazole IVP 40 mg IVP once Route: IVP; Site: left antecubital; bp 11:34 Follow up: Response: No adverse reaction bp 11:32 Not Given (Patient Refused): fentanyl (pf)50 mcg IVP once bp Medication: 09:23 VIS not applicable for this client. ph Intake: 11:35 IV: 1000ml; Total: 1000ml. bp 11:35 IV: 1000ml; Total: 2000ml. bp Outcome: 11:01 Discharge ordered by . gaston 11:33 Discharged to home ambulatory, with family, bp 11:33 Condition: stable 11:33 Discharge instructions given to patient, Instructed on discharge instructions, follow up and referral plans. medication usage, Demonstrated understanding of instructions, follow-up care, medications, Prescriptions given X 2, 11:36 Patient left the ED. bp Signatures: Dispatcher [employer] EDMS Adalid Jean MD MD cha Hall, Patricia, RN RN ph Andria Dc RN Delmar Pozo RN RN bp Lewis, Lynsay, RN RN [facility] Karissa Mendez 3
--- NOTE | 2023-10-08 11:02 | EDPHYS ---
Physician Documentation [facility] Name: Kyle Walker Age: 78 yrs Sex: Male : 1945 Arrival Date: 10/08/2023 Time: 09: Bed 4 Private MD: ED Physician Adalid Jean HPI: 10/07 10:10 This 78 yrs old Male presents to ER via Ambulatory with complaints of ribcage gaston pain. 10:10 The patient or guardian reports chest pain that is located primarily in the anterior gaston chest wall, left. Onset: 3 day(s) ago. The pain does not radiate. The patient or guardian reports chest pain that is located primarily in the anterior chest wall, left lateral anterior chest and left lateral posterior chest. Onset: The symptoms/episode began/occurred 3 day(s) ago. The pain does not radiate. Associated signs and symptoms: The patient has no apparent associated signs or symptoms. The chest pain is described as aching. Severity of pain: At its worst the pain was mild in the emergency department the pain is unchanged. Historical: - Allergies: 09:15 Codeine; ll1 - PMHx: 09:15 COPD; Hernia; PTSD; ll1 - PSHx: 09:15 RLL removed; ulcer/abd SX; ll1 - Immunization history:: Adult Immunizations up to date. - Infectious Disease History:: Denies. - Family history:: not pertinent. - Social history:: Smoking status: Patient reports the use of cigarette tobacco products, smokes one pack cigarettes per day. ROS: 10:10 Constitutional: Negative for fever, chills, and weight loss, Eyes: Negative for injury, gaston pain, redness, and discharge, ENT: Negative for injury, pain, and discharge, Neck: Negative for injury, pain, and swelling, Abdomen/GI: Negative for abdominal pain, nausea, vomiting, diarrhea, and constipation, Back: Negative for injury and pain, : Negative for injury, bleeding, discharge, and swelling, MS/Extremity: Negative for injury and deformity, Skin: Negative for injury, rash, and discoloration, Neuro: Negative for headache, weakness, numbness, tingling, and seizure, Psych: Negative for depression, anxiety, suicide ideation, homicidal ideation, and hallucinations, Allergy/Immunology: Negative for hives, rash, and allergies, Endocrine: Negative for neck swelling, polydipsia, polyuria, polyphagia, and marked weight changes, Hematologic/Lymphatic: Negative for swollen nodes, abnormal bleeding, and unusual bruising, 10:10 Cardiovascular: Positive for chest pain, with movement, of the left lateral posterior chest and left lateral anterior chest, 10:10 Respiratory: Positive for cough, Exam: 10:10 Constitutional: This is a well developed, well nourished patient who is awake, alert, gaston and in no acute distress. Head/Face: Normocephalic, atraumatic. Eyes: Pupils equal round and reactive to light, extra-ocular motions intact. Lids and lashes normal. Conjunctiva and sclera are non-icteric and not injected. Cornea within normal limits. Periorbital areas with no swelling, redness, or edema. ENT: Nares patent. No nasal discharge, no septal abnormalities noted. Tympanic membranes are normal and external auditory canals are clear. Oropharynx with no redness, swelling, or masses, exudates, or evidence of obstruction, uvula midline. Mucous membranes moist. Neck: Trachea midline, no thyromegaly or masses palpated, and no cervical lymphadenopathy. Supple, full range of motion without nuchal rigidity, or vertebral point tenderness. No Meningismus. Cardiovascular: Regular rate and rhythm with a normal S1 and S2. No gallops, murmurs, or rubs. Normal PMI, no JVD. No pulse deficits. Respiratory: Lungs have equal breath sounds bilaterally, clear to auscultation and percussion. No rales, rhonchi or wheezes noted. No increased work of breathing, no retractions or nasal flaring. Abdomen/GI: Soft, non-tender, with normal bowel sounds. No distension or tympany. No guarding or rebound. No evidence of tenderness throughout. Back: No spinal tenderness. No costovertebral tenderness. Full range of motion. Male : Normal genitalia with no discharge or lesions. Skin: Warm, dry with normal turgor. Normal color with no rashes, no lesions, and no evidence of cellulitis. 10:10 Chest/axilla: Inspection: normal, Palpation: tenderness, that is mild, of the left lateral anterior chest and left lateral posterior chest, 10:10 ECG was reviewed by the Attending Physician. Vital Signs: 09:20 BP 140 / 73; Pulse 61; Resp 18; Temp 97.7; Pulse Ox 100% on R/A; Weight 74.84 kg; ph Height 6 ft. 3 in. ; Pain 9/10; 09:49 BP 129 / 69; Pulse 59; Resp 18; Pulse Ox 100% on R/A; ph 11:33 BP 145 / 65; Pulse 54; Resp 16; Pulse Ox 96% ; bp 09:20 Body Mass Index 20.62 (74.84 kg, 190.5 cm) ph 09:20 Pain Scale: Adult ph MDM: 09:07 Patient medically screened. gaston 10:17 HEART Score: History: Slightly Suspicious (0), ECG: Non specific repolarization gaston disturbance / LBTB / PM (1), Age: > or = 65 years (2), Risk Factors: > or = 3 Risk factors for atherosclerotic disease (2), [Hypertension] [Active Smoker] [+ Family HX] Troponin: < or = 1 x Normal Limit (0). The patient was not given aspirin in the Emergency Department. CLIFFORD Risk Score: 1 - patient's age is greater or equal to 65 years, 1 - Three or more CAD risk factors, TOTAL SCORE = 2. Data reviewed: vital signs, nurses notes, lab test result(s), EKG, radiologic studies, CT scan, plain films. Consideration of Admission/Observation Escalation of care including admission/observation considered. I considered the following discharge prescriptions or medication management in the emergency department Medications were administered in the Emergency Department. See MAR. Independent interpretation of the following test(s) in the Emergency Department EKG: See my EKG interpretation above. Test considered but Not performed: Ultrasound no abd usg. 10/07 09:25 Order name: Basic Metabolic Panel; Complete Time: 10:04 10/07 09:25 Order name: CBC with Diff; Complete Time: 10:04 10/07 09:25 Order name: PT-INR; Complete Time: 10:04 10/07 09:25 Order name: Troponin HS; Complete Time: 10:04 10/07 09:25 Order name: Lipase; Complete Time: 10:04 10/07 09:25 Order name: XRAY Chest (1 view); Complete Time: 10:44 10/07 09:26 Order name: CT Chest, Abdomen, Pelvis - W/Contrast; Complete Time: 10:44 10/07 09:25 Order name: Cardiac monitoring; Complete Time: 09: ph 10/07 09:25 Order name: EKG - Nurse/Tech; Complete Time: : ph 10/07 09:25 Order name: IV Saline Lock; Complete Time: 09:39 ph 10/07 09:25 Order name: Labs collected and sent; Complete Time: 09:39 ph 10/07 09:25 Order name: O2 Per Protocol; Complete Time: ph 10/07 09:25 Order name: O2 Sat Monitoring; Complete Time: : ph EC:10 Rate is 57 beats/min. Rhythm is regular. QRS [place] is Normal. NM interval is normal. QRS gaston interval is normal. QT interval is normal. No Q waves. T waves are Normal. No ST changes noted. Clinical impression: Sinus bradycardia and No evidence of ischemia. Interpreted by me. Reviewed by me. Administered Medications: 09:49 Drug: NS 0.9% IV 1000 ml IV at 1 bolus Per protocol; 1000 mL bolus Route: IV; Rate: 1 ph bolus; Site: left antecubital; 11:35 Follow up: IV Status: Completed infusion; IV Intake: 1000ml bp 09:49 Drug: Famotidine IVP 20 mg IVP once; dilute with 10 mL 0.9% NaCl; give over 2 minutes ph Route: IVP; Site: left antecubital; 11:35 Follow up: Response: No adverse reaction bp 09:49 Drug: Ondansetron IVP 4 mg IVP once; over 2 minutes Route: IVP; Site: left antecubital; ph 11:35 Follow up: Response: No adverse reaction bp 10:26 Drug: Mucomyst - Acetylcysteine PO 600 mg PO once Route: PO; bp 11:35 Follow up: Response: No adverse reaction bp 10:26 Drug: NS 0.9% IV 1000 ml IV at 1 bolus Per protocol; 1000 mL bolus Route: IV; Rate: 1 bp bolus; Site: left antecubital; 11:35 Follow up: IV Status: Completed infusion; IV Intake: 1000ml bp 11:15 Drug: Pantoprazole IVP 40 mg IVP once Route: IVP; Site: left antecubital; bp 11:34 Follow up: Response: No adverse reaction bp 11:32 Not Given (Patient Refused): fentanyl (pf)50 mcg IVP once bp Disposition Summary: 10/08/23 11:01 Discharge Ordered Notes: Location: Home gaston Problem: new gaston Symptoms: have improved gaston Condition: Stable gaston Diagnosis - Gastritis, unspecified, without bleeding gaston - Malignant neoplasm of stomach, unspecified - local adenopathy, metasisis gaston - Tobacco abuse counseling gaston - Tobacco use gaston Followup: gaston - With: Private Physician - When: 2 - 3 days - Reason: Recheck today's complaints, Continuance of care, Re-evaluation by your physician Followup: gaston - With: Kenny Ann MD - When: 2 - 3 days - Reason: Recheck today's complaints, Continuance of care, Re-evaluation by your physician Followup: gaston - With: Santhosh Jarquin MD - When: 2 - 3 days - Reason: Recheck today's complaints, Re-evaluation by your physician Discharge Instructions: - Discharge Summary Sheet gaston - Gastritis, Adult gaston - Gastritis, Adult, [id number] gaston - Tobacco Use Disorder [facility] - Stomach Cancer [facility] Forms: - Medication Reconciliation Form [facility] - Antibiotic Education gaston - Prescription Opioid Use gaston - Patient Portal Instructions [facility] - Leadership Thank You Letter [facility] Prescriptions: - Protonix 40 mg Oral Tablet - take 1 tablet ORAL route once daily; 30 tablet; Refills: 0, Product Selection [facility] Permitted - Tramadol 50 mg Oral tablet - take 1 tablet ORAL route every 6-8 hours as needed; 25 tablet; Refills: 0, [facility] Product Selection Permitted Signatures: Dispatcher [employer] EDAdalid Castillo MD MD cha Hall, Patricia RN Delmar Cooper ph, RN RN bp Lewis, Lynsay, RN RN ll1 Corrections: (The following items were deleted from the chart) 09: 09:26 BASIC METABOLIC PANEL+C.LAB.BRZ ordered. EDMS EDMS 09: 09:26 CBC+H.LAB.BRZ ordered. EDMS EDMS : 09:26 PROTIME (+INR)+COAG.LAB.BRZ ordered. EDMS EDMS : 09:26 Troponin High Sensitivity+C.LAB.BRZ ordered. EDMS EDMS : 09:26 Chest Single View+RAD.RAD.BRZ ordered. EDMS EDMS : 09:26 LIPASE+C.LAB.BRZ ordered. EDMS EDMS 09:34 09:34 Urinalysis+U.LAB.SAM ordered. EDMS EDMS
[2023-10-08] MEDS ORDERED: PANTOPRAZOLE 40 MG INJ ONE (11:16)
[2023-10-08 12:08] VITALS: BP 145/65; TEMP 97.7; O2SAT 96
--- NOTE | 2023-10-10 14:11 | EKG ---
Test Date: 2023-10-08 Test Time: 09:22:42 Rn Traveling: HB MEASUREMENT RESULTS: Intervals: Rate: 57 [place]: 120 QRSD: 84 QT: 416 QTc: 404 [place]: P: 62 [place]: 120 QRS: 27 T: 72 INTERPRETIVE STATEMENTS: Sinus bradycardia with occasional premature ventricular complexes Possible Left atrial enlargement Borderline ECG Compared to ECG 09/02/2022 13:44:11 Ventricular premature complex(es) now present Electronically Signed On 10-10-23 14:06:26 CDT by Kerwin Tripathi
== END 2023-10-08 11:36 | disposition home or self-care (01) ==
LOC: ER 09:01
DX: K29.70 Gastritis, unspecified, without bleeding (principal); C16.9 Malignant neoplasm of stomach, unspecified; Z72.0 Tobacco use; Z71.6 Tobacco abuse counseling
CPT/HCPCS: 96361; 93005; 85025; 80048; 36415; 85610; 84484; 83690; 71260; 74177; 71045; 96375; 96374; 99285; Q9967; J7608; C9113; J2405; J7030 ×2

== ENCOUNTER 2024-02-07 13:11 | Day surgery (SDC) | payer OTHER ==
[2024-02-03 10:23] LABS: Absolute Eosinophils 0.3 K/uL (0-0.5); Absolute Lymphocytes (CBC) 1.9 K/uL (0.7-4.9); Absolute Monocytes 0.7 K/uL (0.1-1.3); Basophils % 0.5 % (0-1.3); Eosinophils % 3.9 % (0-4.4); Hematocrit 39.1 % (39.6-49.0); Hemoglobin 13.1 g/dL (13.6-17.9); Lymphocytes % 24.2 % (15.3-44.8); MCH 32.2 pg (27.0-35.0); MCHC 33.6 g/dL (32.0-36.0); MCV 95.9 fL (80-100); MPV 8.2 fL (7.6-11.3); Monocytes % 8.3 % (3.3-12.3); Neutrophils % 63.1 % (41.7-73.7); Platelets 214 thou/uL (152-406); RBC Red Blood Cell Count 4.07 M/uL (4.33-5.43); Red Cell Distribution Width 14.6 % (12.1-15.2)
[2024-02-03 10:24] LABS: PT Prothrombin Time 11.1 SECONDS (9.4-12.5); PTT, Activated Partial Thromb 32.8 SECONDS (24.3-36.9); Protime INR 0.99
[2024-02-03 10:29] LABS: Anion Gap 8.2 mEq/L (5.0-15.0); Potassium 4.2 mEq/L (3.5-5.1)
--- NOTE | 2024-02-03 15:27 | EKG ---
Test Date: 2024-02-03 Test Time: 09:31:08 Shot Fireman: KAE MEASUREMENT RESULTS: Intervals: Rate: 53 DE: 182 QRSD: 114 QT: 466 QTc: 437 [place]: P: 81 DE: 182 QRS: 77 T: -27 INTERPRETIVE STATEMENTS: Marked sinus bradycardia with marked sinus arrhythmia with premature ventricular complexes or fusion complexes ST & T wave abnormality, consider inferolateral ischemia Abnormal ECG Compared to ECG 12/06/2023 11:39:20 Fusion complex(es) now present ST (T wave) deviation now present Possible ischemia now present Electronically Signed On 02-03-24 15:26:40 CDT by Lucho Baldwin
[2024-02-07] MEDS ORDERED: NA CHLORIDE 0.9% 500 ML ONE (13:13)
[2024-02-07 13:36] VITALS: TEMP 97.8
[2024-02-07] MEDS ORDERED: FENTANYL CITR 100 MCG/2 ML ONE (14:14)
[2024-02-07] MEDS ORDERED: MIDAZOLAM HCL 2 MG/2 ML INJ ONE (14:14)
[2024-02-07] MEDS ORDERED: HEPA 1000U/500MLS 2,000 UNIT/1,000 ML BAG IV ONE (14:21)
[2024-02-07] MEDS ORDERED: CLOPIDOGREL 75 MG TABLET ONE (14:22)
[2024-02-07] MEDS ORDERED: HEPARIN 10,000 UNIT/10 ML VIAL IV ONE (14:22)
[2024-02-07] MEDS ORDERED: ATROPINE SULF 1 MG/10 ML SYR IV ONE (14:22)
[2024-02-07] MEDS ORDERED: HEPARIN 5000 UNIT/ML 1 ML VIAL ONE (14:22)
[2024-02-07] MEDS ORDERED: LIDOCAINE 1% 20 ML MDV ONE (14:22)
[2024-02-07] MEDS ORDERED: VERAPAMIL HCL 10 MG/4 ML VIAL IV ONE (14:22)
[2024-02-07] MEDS ORDERED: ASPIRIN 325 MG TAB ONE (14:23)
[2024-02-07] MEDS ORDERED: TICAGRELOR 90 MG TABLET PO ONE (14:23)
[2024-02-07 17:05] VITALS: O2SAT 99
[2024-02-07 18:05] VITALS: BP 111/55
--- NOTE | 2024-02-07 20:49 | OP ---
Date of Procedure: 02/07/2024 Surgeon: KRISTA GIFFORD Procedures Performed: 1.Selective coronary angiogram. 2.Left heart catheterization. Indication: Chest pain with abnormal stress test. Access: Right radial artery 6-Swedish closed with TR band. Complications: None. Bleeding: Less than 50 mL. Description Of Procedure: After risks, benefits, and alternatives were explained, patient agreed to the procedure and signed informed consent. The patient was brought into cardiac catheterization [facility], prepped and draped in usual sterile fashion. Then, I accessed right radial artery using pedi atric micropuncture kit, placed 6-Swedish Slender sheath and took 5-Swedish Mcintosh 4.0 catheter into the aortic root over a J-wire across the aortic valve, measured the LVEDP. Pullback did not record any gradient. Then engaged the RCA, took standard views and then in the left main, took standard views a nd then removed the catheter and the sheath, placed TR band with good hemostasis. Findings: 1.Left main is normal. 2.LAD; proximal segment is large and normal and then it bifurcates to large diagonal and it gives a dual LAD system and with luminal irregularities. 3.Left circumflex, is moderate size vessel and normal. 4.RCA; it is the largest artery and it is dominant with diffuse proximal 30% to 40% stenosis. 5.LVEDP is elevated between 15 and 20 mmHg. Conclusion: Mild to moderate coronary artery disease. Recommendation: Medical management. SR/MODL Voice ID: [id number] Report ID: [id number]
== END 2024-02-07 17:35 | disposition home or self-care (01) ==
LOC: PRE 13:11
PROVIDERS: ATTEND Internal Medicine
DX: I25.10 Atherosclerotic heart disease of native coronary artery without angina pectoris (principal); I34.0 Nonrheumatic mitral (valve) insufficiency; I65.29 Occlusion and stenosis of unspecified carotid artery; I73.9 Peripheral vascular disease, unspecified; I71.40 Abdominal aortic aneurysm, without rupture, unspecified; I95.1 Orthostatic hypotension; F17.210 Nicotine dependence, cigarettes, uncomplicated; Z79.899 Other long term (current) drug therapy; Z88.5 Allergy status to narcotic agent
CPT/HCPCS: 93005; 85025; 80048; 36415; 85610; 85730; 93458; 76937; C1893; Q9966; J1644; J2001; J2250; J3010; J7040; J0461

== ENCOUNTER 2024-04-20 07:18 | Emergency (ER) | payer OTHER ==
[2024-04-20 07:48] LABS: Absolute Basophils 0.1 K/uL (0-0.5); Absolute Eosinophils 0.4 K/uL (0-0.5); Absolute Lymphocytes (CBC) 1.9 K/uL (0.7-4.9); Absolute Monocytes 0.6 K/uL (0.1-1.3); Absolute Neutrophil 5.3 K/uL (1.8-8.0); Basophils % 1.3 % (0-1.3); Eosinophils % 4.8 % (0-4.4); Hematocrit 37.4 % (39.6-49.0); Hemoglobin 12.5 g/dL (13.6-17.9); Lymphocytes % 23.4 % (15.3-44.8); MCH 32.3 pg (27.0-35.0); MCHC 33.4 g/dL (32.0-36.0); MCV 96.8 fL (80-100); MPV 7.5 fL (7.6-11.3); Monocytes % 6.7 % (3.3-12.3); Neutrophils % 63.8 % (41.7-73.7); Platelets 323 thou/uL (152-406); RBC Red Blood Cell Count 3.87 M/uL (4.33-5.43); Red Cell Distribution Width 13.4 % (12.1-15.2)
[2024-04-20 08:06] LABS: AST/SGOT 15 U/L (15-37); Albumin 3.3 g/dL (3.4-5.0); Albumin/Globulin Ratio 0.8 (1.1-1.8); Alkaline Phosphatase 71 U/L (45-117); Anion Gap 7.4 mEq/L (5.0-15.0); BUN Blood Urea Nitrogen 15 mg/dL (7-18); Bicarbonate 30 mEq/L (21-32); Bilirubin Total 0.3 mg/dL (0.2-1.0); Globulin 4.1 g/dL (2.3-3.5); Glomerular Filtration Rate 47 ml/min (=/>90); Glucose Level 124 mg/dL (74-106); Lipase 43 U/L (13-75); Potassium 4.4 mEq/L (3.5-5.1); Protein, Total 7.4 g/dL (6.4-8.2); Sodium Level 139 mEq/L (136-145)
[2024-04-20 08:07] LABS: ALT/SGPT < 14 U/L (16-61)
--- NOTE | 2024-04-20 08:23 | RAD REPORT ---
EXAMINATION: CT ABDOMEN AND PELVIS WITH CONTRAST CLINICAL INDICATION: Abdominal pain TECHNIQUE: CT abdomen and pelvis was performed, after the administration of 100 cc Isovue-300.. Sagit alta and coronal reconstructions were obtained. One or more of the following dose reduction techniques were used: Automated exposure control, adjustment of the mA and kV according to patient si ze, and iterative reconstruction. Unless otherwise specified, incidental findings do not require dedicated imaging follow-up. [id number]. Oral contrast was not given which limits evaluation of bowel and appendix. COMPARISON: .October 2023 FINDINGS: Soft tissue anterior gastric body without significant change. No obstruction. No free air. Small [place] cent lymph nodes. The liver, spleen, pancreas, adrenals and left kidney unremarkable. Right renal cyst unchanged. Normal appendix. No evidence of diverticulitis. Large amount of stool throughout the colon. : IMPRESSION: Gastric mass without significant change compatible with neoplasm. Large amount of stool throughout the colon
[2024-04-20 08:55] LABS: Specific Gravity > 1.030 (1.005-1.030); Urine Bilirubin NEGATIVE (Negative); Urine Blood Negative (Negative); Urine Clarity Clear (Clear); Urine Color Light-Yellow (Yellow); Urine Glucose NEGATIVE (Negative); Urine Ketones NEGATIVE (Negative); Urine Microscopic Reflex YN NO UMIC; Urine Nitrite NEGATIVE (Negative); Urine Protein NEGATIVE (Negative); Urine Urobilinogen Normal (Normal); Urine pH 6.5 (5.0-7.0)
--- NOTE | 2024-04-20 09:18 | ER ---
Nurse's Notes [facility] Name: Kyle Walker Age: 79 yrs Sex: Male : 1945 Arrival Date: 04/20/2024 Time: 07:18 Bed 16 Private MD: Diagnosis: Constipation, abdominal pain Presentation: 04/20 07:34 Chief complaint: Patient states: abd pain that radiates to his lower back x3 days. kc6 Coronavirus screen: At this time, the client does not indicate any symptoms associated with coronavirus-19. Ebola Screen: No symptoms or risks identified at this time. Initial Sepsis Screen: Does the patient meet any 2 criteria? No. Patient's initial sepsis screen is negative. Does the patient have a suspected source of infection? No. Patient's initial sepsis screen is negative. Risk Assessment: Do you want to hurt yourself or someone else? Patient reports no desire to harm self or others. Onset of symptoms was April 20, 2024. 07:34 Method Of Arrival: Ambulatory [facility] 07:34 Acuity: YOLANDA 3 kc6 Historical: - Allergies: 07:35 Codeine; kc6 - PMHx: 07:35 PTSD; Hernia; COPD; cancer-stomach (ulcer/abd SX); kc6 - PSHx: 07:35 RLL removed; ulcer/abd SX; kc6 - Immunization history:: Adult Immunizations up to date. - Infectious Disease History:: Denies. - Social history:: Smoking status: Patient reports the use of cigarette tobacco products, smokes one pack cigarettes per day. Screenin:35 [facility] ED Fall Risk Assessment (Adult) History of falling in the last 3 months, kc6 including since admission No falls in past 3 months (0 pts) Confusion or Disorientation No (0 pts) Intoxicated or Sedated No (0 pts) Impaired Gait No (0 pts) Mobility Assist Device Used No (0 pt) Altered Elimination No (0 pt) Score/Fall Risk Level 0 - 2 = Low Risk Oriented to surroundings, Maintained a safe environment. Abuse screen: Denies threats or abuse. Denies injuries from another. Nutritional screening: No deficits noted. Tuberculosis screening: No symptoms or risk factors identified. Assessment: 07:36 Pain: Complains of pain in lumbar area, left low back, right low back and umbilical kc6 area Pain currently is 8 out of 10 on a pain scale. at worst was 10 out of 10 on a pain scale. Pain began 2-3 days ago. Neuro: Level of Consciousness is awake, alert, obeys commands, Oriented to person, place, time, situation, Appropriate for age Reports dizziness. Cardiovascular: Denies chest pain, shortness of breath, Capillary refill < 3 seconds Rhythm is sinus bradycardia. Respiratory: Airway is patent Trachea midline Respiratory effort is even, unlabored, Respiratory pattern is regular, symmetrical. GI: Abdomen is flat, non-distended, Bowel sounds present X 4 quads. Abd is soft X 4 quads Reports lower abdominal pain, nausea, Patient currently denies diarrhea, vomiting. : No signs and/or symptoms were reported regarding the genitourinary system. EENT: No signs and/or symptoms were reported regarding the EENT system. Derm: No signs and/or symptoms reported regarding the dermatologic system. Skin is intact, is healthy with good turgor, Skin is pink, warm \T\ dry. Musculoskeletal: No signs and/or symptoms reported regarding the musculoskeletal system. Circulation, motion, and sensation intact. Capillary refill < 3 seconds, Range of motion: intact in all extremities. 08:50 Reassessment: Patient appears in no apparent distress at this time. No changes from kc6 previously documented assessment. Patient and/or family updated on plan of care and expected duration. Pain level reassessed. Patient is alert, oriented x 3, equal unlabored respirations, skin warm/dry/pink. Vital Signs: 07:34 BP 132 / 81; Pulse 44; Resp 18 S; Temp 97.5(O); Pulse Ox 100% on R/A; Weight 74.84 kg kc6 (R); Height 6 ft. 3 in. (R); Pain 8/10; 08:50 BP 144 / 69; Pulse 43; Resp 18 S; Pulse Ox 100% on R/A; kc6 07:34 Body Mass Index 20.62 (74.84 kg, 190.5 cm) kc6 07:34 Pain Scale: Adult kc6 ED Course: 07:21 Patient arrived in ED. jj6 07:22 Linda Hovrath MD is Attending Physician. sp3 07:33 Rolanda Castro RN is Primary Nurse. kc6 07:35 Triage completed. kc6 07:35 Arm band placed on. kc6 07:35 Patient has correct armband on for positive identification. Placed in gown. Bed in low kc6 position. Call light in reach. Side rails up X 1. Adult w/ patient. Pulse ox on. NIBP on. Door closed. Noise minimized. Lights dimmed. Pillow given. 07:35 Patient maintains SpO2 saturation greater than 95% on room air. kc6 07:38 Inserted saline lock: 20 gauge in left antecubital area, using aseptic technique. Blood kc6 collected. Flushed with 10 mL NS. 07:46 CT Abd/Pelvis - IV Contrast Only In Process Unspecified. EDMS 07:59 EKG done, by ED staff, reviewed by Linda Horvath MD. nh2 09:30 No provider procedures requiring assistance completed. IV discontinued, intact, kc6 bleeding controlled, No redness/swelling at site. Pressure dressing applied. Administered Medications: No medications were administered Medication: 09:30 VIS not applicable for this client. kc6 Outcome: 09:17 Discharge ordered by . sp3 09:30 Discharged to home ambulatory, with significant other, kc6 09:30 Condition: good 09:30 Discharge instructions given to patient, significant other, Instructed on discharge instructions, follow up and referral plans. Demonstrated understanding of instructions, follow-up care, 09:31 Patient left the ED. kc6 Signatures: Dispatcher [employer] Linda Lang MD MD sp3 Cathie Blakely Kaitlyn, RN RN kc6 Juan Silva Jr nh2
--- NOTE | 2024-04-20 09:18 | EDPHYS ---
Physician Documentation [facility] Name: Kyle Walker Age: 79 yrs Sex: Male : 1945 Arrival Date: 04/20/2024 Time: 07:18 Bed 16 Private MD: ED Physician Linda Horvath HPI: 04/20 07:33 This 79 yrs old Male presents to ER via Unassigned with complaints of Abdominal Pain, sp3 Pelvic Pain. 07:33 79-year-old male with history of gastric cancer, ventral hernia presents to the ED with sp3 chief complaint epigastric pain radiating inferiorly is into his back. Symptoms been going on for about a week. He denies injury. Symptoms are improved when he is at rest however when he is up and about he feels like it gets worse. He denies any chest pain, shortness of breath, fever, diarrhea, vomiting, lower extremity weakness or numbness, or any other signs or symptoms on ROS at this time.. Historical: - Allergies: 07:35 Codeine; kc6 - PMHx: 07:35 PTSD; Hernia; COPD; cancer-stomach (ulcer/abd SX); kc6 - PSHx: 07:35 RLL removed; ulcer/abd SX; kc6 - Immunization history:: Adult Immunizations up to date. - Infectious Disease History:: Denies. - Social history:: Smoking status: Patient reports the use of cigarette tobacco products, smokes one pack cigarettes per day. ROS: 07:35 Constitutional: Negative for fever, chills, and weight loss, Eyes: Negative for injury, sp3 pain, redness, and discharge, Neck: Negative for injury, pain, and swelling, Cardiovascular: Negative for chest pain, palpitations, and edema, Respiratory: Negative for shortness of breath, cough, wheezing, and pleuritic chest pain, Back: Negative for injury and pain, MS/Extremity: Negative for injury and deformity, Skin: Negative for injury, rash, and discoloration, Neuro: Negative for headache, weakness, numbness, tingling, and seizure, Psych: Negative for depression, anxiety, suicide ideation, homicidal ideation, and hallucinations, Allergy/Immunology: Negative for hives, rash, and allergies, Endocrine: Negative for neck swelling, polydipsia, polyuria, polyphagia, and marked weight changes, Hematologic/Lymphatic: Negative for swollen nodes, abnormal bleeding, and unusual bruising, 07:35 All other systems are negative, Exam: 07:35 Constitutional: This is a well developed, well nourished patient who is awake, alert, sp3 and in no acute distress. Head/Face: Normocephalic, atraumatic. Eyes: Pupils equal round and reactive to light, extra-ocular motions intact. Lids and lashes normal. Conjunctiva and sclera are non-icteric and not injected. Cornea within normal limits. Periorbital areas with no swelling, redness, or edema. Neck: Trachea midline, no thyromegaly or masses palpated, and no cervical lymphadenopathy. Supple, full range of motion without nuchal rigidity, or vertebral point tenderness. No Meningismus. Chest/axilla: Normal chest wall appearance and motion. Nontender with no deformity. No lesions are appreciated. Cardiovascular: Regular rate and rhythm with a normal S1 and S2. No gallops, murmurs, or rubs. Normal PMI, no JVD. No pulse deficits. Respiratory: Lungs have equal breath sounds bilaterally, clear to auscultation and percussion. No rales, rhonchi or wheezes noted. No increased work of breathing, no retractions or nasal flaring. Back: No spinal tenderness. No costovertebral tenderness. Full range of motion. Skin: Warm, dry with normal turgor. Normal color with no rashes, no lesions, and no evidence of cellulitis. MS/ Extremity: Pulses equal, no cyanosis. Neurovascular intact. Full, normal range of motion. Neuro: Awake and alert, GCS 15, oriented to person, place, time, and situation. Cranial nerves II-XII grossly intact. Motor strength 5/5 in all extremities. Sensory grossly intact. Cerebellar exam normal. Normal gait. Psych: Awake, alert, with orientation to person, place and time. Behavior, mood, and affect are within normal limits. 07:35 Abdomen/GI: Ventral hernia noted in the epigastric region that reduces easily. No peritoneal signs, rebound or guarding. Mild diffuse pain to palpation however no significant grimace or pain reported. No pain to palpation on the back., 08:48 ECG was reviewed by the Attending Physician. EKG demonstrates sinus bradycardia at 42 sp3 bpm with first-degree AV block with AZ interval 202, normal axis, normal QRS, nonspecific diffuse ST/T changes without evidence of acute ischemia. Vital Signs: 07:34 BP 132 / 81; Pulse 44; Resp 18 S; Temp 97.5(O); Pulse Ox 100% on R/A; Weight 74.84 kg kc6 (R); Height 6 ft. 3 in. (R); Pain 8/10; 08:50 BP 144 / 69; Pulse 43; Resp 18 S; Pulse Ox 100% on R/A; kc6 07:34 Body Mass Index 20.62 (74.84 kg, 190.5 cm) kc6 07:34 Pain Scale: Adult kc6 MDM: 07:26 Medical Screening Exam initiated sp3 07:36 Data reviewed: vital signs, nurses notes, old medical records, lab test result(s), EKG, sp3 radiologic studies. ED course: 79-year-old male with PMH above now with abdominal pain radiating to the back. Differential diagnosis includes gastric cancer complication, biliary pathology, peptic ulcer disease, lower aortic pathology, functional abdominal pain, constipation, among others. Workup will include CT scan of the abdomen pelvis with IV contrast, general labs, EKG and general supportive care. Disposition pending workup and patient course.. 09:16 ED course: CT scan demonstrates no significant abnormality. Laboratory values normal sp3 including lactate. Patient is bradycardic in the 40s but does come up to the upper 40s believe this is his baseline. Blood pressure is normal. Patient is constipated and we will tell him to take OTC magnesium citrate and follow-up with his PCP as needed.. 04/20 07:27 Order name: CBC with Diff; Complete Time: 08:35 sp3 04/20 07:27 Order name: CMP; Complete Time: 08:35 sp3 04/20 07:27 Order name: Lipase; Complete Time: 08:35 sp3 04/20 07:27 Order name: Urinalysis w/ reflexes; Complete Time: 09:04 sp3 04/20 07:27 Order name: Lactate w/ 2H reflex if indic.; Complete Time: 08:35 sp3 04/20 07:27 Order name: Troponin High Sensitivity; Complete Time: 08:35 sp3 04/20 07:27 Order name: CT Abd/Pelvis - IV Contrast Only; Complete Time: 08:35 sp3 04/20 07:27 Order name: EKG; Complete Time: 07:28 sp3 04/20 07:27 Order name: IV Saline Lock; Complete Time: 07:38 sp3 04/20 07:27 Order name: Labs collected and sent; Complete Time: 07:38 sp3 04/20 07:27 Order name: EKG - Nurse/Tech; Complete Time: 07:59 sp3 Administered Medications: No medications were administered Disposition Summary: 04/20/24 09:17 Discharge Ordered Notes: Location: Home sp3 Condition: Stable sp3 Diagnosis - Constipation, abdominal pain sp3 Followup: sp3 - With: Private Physician - When: Upon discharge from the Emergency Department - Reason: Continuance of care Discharge Instructions: - Discharge Summary Sheet sp3 - Constipation, Adult sp3 Forms: - Medication Reconciliation Form sp3 - Antibiotic Education sp3 - Prescription Opioid Use sp3 - Patient Portal Instructions sp3 - Leadership Thank You Letter sp3 Signatures: Dispatcher [employer] Linda Lang MD MD sp3 Rolanda Castro RN RN kc6
[2024-04-20 09:58] VITALS: TEMP 97.5; O2SAT 100
[2024-04-20 10:00] VITALS: BP 144/69
--- NOTE | 2024-04-24 12:10 | EKG ---
Test Date: 2024-04-20 Test Time: 07:55:37 [employer]: JOSE JUAN MEASUREMENT RESULTS: Intervals: Rate: 42 AK: 202 QRSD: 90 QT: 472 QTc: 394 [place]: P: 94 AK: 202 QRS: 43 T: 82 INTERPRETIVE STATEMENTS: Marked sinus bradycardia Septal infarct, age undetermined Abnormal ECG Compared to ECG 02/03/2024 09:31:08 Myocardial infarct finding now present Sinus arrhythmia no longer present Fusion complex(es) no longer present Ventricular premature complex(es) no longer present ST (T wave) deviation no longer present Possible ischemia no longer present Electronically Signed On 04-24-24 12:06:05 FERMENTER CHAMPAGNE by Lucho Baldwin
== END 2024-04-20 09:31 | disposition home or self-care (01) ==
LOC: ER 07:18
DX: K59.00 Constipation, unspecified (principal); J44.9 Chronic obstructive pulmonary disease, unspecified; F17.210 Nicotine dependence, cigarettes, uncomplicated; Z85.028 Personal history of other malignant neoplasm of stomach
CPT/HCPCS: 85025; 36415; 83605; 81003; 84484; 83690; 80053; 74177; 99284; Q9967; 93005

== ENCOUNTER 2024-04-25 11:24 | Inpatient (IN) | payer OTHER ==
[2024-04-25] MEDS ORDERED: NA CHLORIDE 0.9% 1,000 ML ONE ×2 (11:49→13:42)
[2024-04-25 12:11] LABS: Absolute Basophils 0.1 K/uL (0-0.5); Absolute Eosinophils 0.2 K/uL (0-0.5); Absolute Lymphocytes (CBC) 1.9 K/uL (0.7-4.9); Absolute Monocytes 0.9 K/uL (0.1-1.3); Absolute Neutrophil 9.1 K/uL (1.8-8.0); Basophils % 0.5 % (0-1.3); Eosinophils % 1.7 % (0-4.4); Hematocrit 28.2 % (39.6-49.0); Hemoglobin 9.1 g/dL (13.6-17.9); Lymphocytes % 15.6 % (15.3-44.8); MCH 31.3 pg (27.0-35.0); MCHC 32.1 g/dL (32.0-36.0); MCV 97.7 fL (80-100); Monocytes % 7.8 % (3.3-12.3); Neutrophils % 74.4 % (41.7-73.7); Platelets 235 thou/uL (152-406); RBC Red Blood Cell Count 2.89 M/uL (4.33-5.43); Red Cell Distribution Width 12.9 % (12.1-15.2)
--- NOTE | 2024-04-25 12:23 | RAD REPORT ---
EXAMINATION: ONE VIEW CHEST XR CLINICAL INDICATION: COUGH TECHNIQUE: Frontal chest projection is submitted. Examination is limited by patient positioning and t echnique. COMPARISON: 12/06/2023 FINDINGS: Lungs appear emphysematous. Fullness in the right hilar region is noted probably related to prominent vasculature and similar to prior study. No focal infiltrate is seen. The heart is normal in size. No displaced fractures identified. IMPRESSION: COPD without an acute process suspected.
[2024-04-25 12:32] LABS: AST/SGOT 11 U/L (15-37); Albumin 2.5 g/dL (3.4-5.0); Albumin/Globulin Ratio 0.8 (1.1-1.8); Alkaline Phosphatase 52 U/L (45-117); Anion Gap 7.6 mEq/L (5.0-15.0); BUN Blood Urea Nitrogen 22 mg/dL (7-18); Bicarbonate 27 mEq/L (21-32); Bilirubin Total 0.3 mg/dL (0.2-1.0); Glomerular Filtration Rate 44 ml/min (=/>90); Glucose Level 141 mg/dL (74-106); Potassium 4.6 mEq/L (3.5-5.1); Protein, Total 5.5 g/dL (6.4-8.2); Sodium Level 138 mEq/L (136-145); Troponin High Sensitivity 52.9 pg/mL (<58.9)
[2024-04-25 12:36] LABS: ALT/SGPT < 14 U/L (16-61); Bilirubin Direct < 0.2 mg/dL (0-0.2); Bilirubin Indirect, Calculated 0.1 mg/dL (0.2-0.8)
[2024-04-25] MEDS ORDERED: NICOTINE 21 MG/PAT TD ONE (14:15)
--- NOTE | 2024-04-25 14:17 | ER ---
Nurse's Notes [facility] Name: Kyle Walker Age: 79 yrs Sex: Male : 1945 Arrival Date: 04/25/2024 Time: 11:24 Bed 4 Private MD: Diagnosis: Orthostatic hypotension;Syncope Near Presentation: 04/25 11:35 Chief complaint: EMS states: they were toned for a syncopal episode witnessed by family kc6 while getting out of his car. pt states he reports feeling lightheaded and dizzy prior but denies CP, SOB. Coronavirus screen: At this time, the client does not indicate any symptoms associated with coronavirus-19. Ebola Screen: No symptoms or risks identified at this time. Initial Sepsis Screen: Does the patient meet any 2 criteria? No. Patient's initial sepsis screen is negative. Does the patient have a suspected source of infection? No. Patient's initial sepsis screen is negative. Risk Assessment: Do you want to hurt yourself or someone else? Patient reports no desire to harm self or others. Onset of symptoms was April 25, 2024. 11:35 Method Of Arrival: EMS: [facility] 6 11:35 Acuity: YOLANDA 2 kc6 11:39 Care prior to arrival: Medication(s) given: amiodarone 150mg IV IV initiated. 18 GA, in kc6 the left forearm, Glucose check: 133. Historical: - Allergies: 11:39 Codeine; kc6 - PMHx: 11:39 cancer-stomach (ulcer/abd SX); COPD; Hernia; PTSD; kc6 - PSHx: 11:39 RLL removed; ulcer/abd SX; kc6 - Immunization history:: Adult Immunizations up to date. - Infectious Disease History:: Denies. - Social history:: Smoking status: Patient reports the use of cigarette tobacco products, smokes one pack cigarettes per day. Screenin:56 [facility] ED Fall Risk Assessment (Adult) History of falling in the last 3 months, kc6 including since admission Yes- physiologic fall (2 pts) Confusion or Disorientation No (0 pts) Intoxicated or Sedated No (0 pts) Impaired Gait No (0 pts) Mobility Assist Device Used No (0 pt) Altered Elimination No (0 pt) Score/Fall Risk Level 0 - 2 = Low Risk Oriented to surroundings, Maintained a safe environment, Educated pt \T\ family on fall prevention, incl call for assistance when getting out of bed, Assessed \T\ reinforced patient's understanding of fall precautions. Abuse screen: Denies threats or abuse. Denies injuries from another. Nutritional screening: No deficits noted. Tuberculosis screening: No symptoms or risk factors identified. Assessment: 11:45 General: Appears in no apparent distress. comfortable, slender, well groomed, Behavior kc6 is calm, cooperative, appropriate for age. Pain: Denies pain. Pain does not radiate. Neuro: Level of Consciousness is awake, alert, obeys commands, Oriented to person, place, time, situation, Appropriate for age Reports dizziness, a syncopal episode. Cardiovascular: Reports lightheadedness, Denies chest pain, shortness of breath, Capillary refill < 3 seconds Rhythm is sinus bradycardia with multifocal PVCs. Respiratory: Airway is patent Trachea midline Respiratory effort is even, unlabored, Respiratory pattern is regular, symmetrical. GI: No signs and/or symptoms were reported involving the gastrointestinal system. : No signs and/or symptoms were reported regarding the genitourinary system. EENT: No signs and/or symptoms were reported regarding the EENT system. Derm: No signs and/or symptoms reported regarding the dermatologic system. Skin is intact, is healthy with good turgor, Skin is dry, Skin is normal, Skin temperature is warm. Musculoskeletal: No signs and/or symptoms reported regarding the musculoskeletal system. Circulation, motion, and sensation intact. Capillary refill < 3 seconds, Range of motion: intact in all extremities. 13:09 Reassessment: Patient appears in no apparent distress at this time. No changes from kc6 previously documented assessment. Patient and/or family updated on plan of care and expected duration. Pain level reassessed. Patient is alert, oriented x 3, equal unlabored respirations, skin warm/dry/pink. 13:57 Reassessment: Patient appears in no apparent distress at this time. No changes from kc6 previously documented assessment. Patient and/or family updated on plan of care and expected duration. Pain level reassessed. Patient is alert, oriented x 3, equal unlabored respirations, skin warm/dry/pink. 15:13 Reassessment: Patient appears in no apparent distress at this time. No changes from kc6 previously documented assessment. Patient and/or family updated on plan of care and expected duration. Pain level reassessed. Patient is alert, oriented x 3, equal unlabored respirations, skin warm/dry/pink. 16:13 Reassessment: Patient appears in no apparent distress at this time. No changes from kc6 previously documented assessment. Patient and/or family updated on plan of care and expected duration. Pain level reassessed. Patient is alert, oriented x 3, equal unlabored respirations, skin warm/dry/pink. 17:13 Reassessment: Patient appears in no apparent distress at this time. No changes from kc6 previously documented assessment. Patient and/or family updated on plan of care and expected duration. Pain level reassessed. Patient is alert, oriented x 3, equal unlabored respirations, skin warm/dry/pink. 18:39 Reassessment: Patient and/or family updated on plan of care and expected duration. Pain tm6 level reassessed. Patient is alert, oriented x 3, equal unlabored respirations, skin warm/dry/pink. Vital Signs: 11:35 BP 92 / 62; Pulse 52; Resp 18 S; Pulse Ox 95% on 2 lpm NC; Weight 72.12 kg (R); Height kc6 5 ft. 3 in. (R); 12:46 BP 120 / 61; Pulse 55; Resp 16 S; Pulse Ox 100% on 2 lpm NC; kc6 13:07 BP 109 / 64 RA Supine (man/reg); Pulse 53; Resp 18 S; Pulse Ox 99% on 3 lpm NC; kc6 13:07 BP 99 / 62 RA Sitting (man/reg); Pulse 54; Resp 19 S; Pulse Ox 99% on 2 lpm NC; kc6 13:58 BP 102 / 60; Pulse 58; Resp 19 S; Pulse Ox 100% on 2 lpm NC; kc6 14:42 Height 6 ft. 3 in. ; bd 15:13 BP 105 / 61; Pulse 61; Resp 16 S; Pulse Ox 100% on 2 lpm NC; kc6 18:38 BP 107 / 58; Pulse 52; Pulse Ox 100% on 2 lpm NC; MAP 71 mmHg; Pain 0/10; tm6 11:35 Body Mass Index 28.17 (72.12 kg, 190.5 cm) kc6 18:38 Pain Scale: Adult tm6 ED Course: 11:35 Patient arrived in ED. kc6 11:37 Sandy Schwarz MD is Attending Physician. sw6 11:39 Triage completed. kc6 11:39 Arm band placed on. kc6 11:56 Patient has correct armband on for positive identification. Placed in gown. Bed in low kc6 position. Call light in reach. Side rails up X2. Adult w/ patient. rn medical inpatient services on. Pulse ox on. NIBP on. Door closed. Noise minimized. Lights dimmed. Warm blanket given. Pillow given. 11:56 Maintain EMS IV. Dressing intact. Good blood return noted. Site clean \T\ dry. Gauge \T\ indra 6 site: 18G LFA. Flushed with 10 mL NS. Inserted saline lock: 18 gauge in right antecubital area, using aseptic technique. Blood collected. Flushed with 10 mL NS. 11:57 Rolanda Castro, DEL is Primary Nurse. kc6 12:07 Chest Single View XRAY In Process Unspecified. EDMS 14:14 [place] is Hospitalizing Provider. sw6 19:20 Patient admitted, IV remains in place. dd2 Administered Medications: 11:56 Drug: NS 0.9% IV 1000 ml IV at 1 bolus Per protocol; to be given as a bolus over 60 kc6 minutes Route: IV; Rate: 1 bolus; Site: right antecubital; 13:06 Follow up: Response: No adverse reaction; IV Status: Completed infusion; IV Intake: kc6 1000ml 13:46 Drug: NS 0.9% IV 1000 ml IV at 1000 ml once; to be given as a bolus over 60 minutes kc6 Route: IV; Rate: 1000 ml; Site: right antecubital; 18:40 Follow up: Response: No adverse reaction; IV Status: Completed infusion; IV Intake: tm6 1000ml 14:20 Drug: Nicotine Transdermal Patch 21 mg/24 hr 1 patches Transdermal once Route: kc6 Transdermal; Site: affected area; 18:40 Follow up: Response: No adverse reaction tm6 Intake: 13:06 IV: 1000ml; Total: 1000ml. kc6 18:40 IV: 1000ml; Total: 2000ml. tm6 Outcome: 14:16 Decision to Hospitalize by Provider. sw6 19:20 Admitted to Med/surg dd2 19:20 Admitted to Med/surg accompanied by tech, via wheelchair, with chart, 19:20 Condition: stable 19:20 Discharge instructions given to patient, Instructed on the need for admit, Demonstrated understanding of instructions, 19:21 Patient left the ED. dd2 Signatures: Dispatcher [employer] EDMS Shannan Sy Kaitlyn, RN RN kc6 Florina Monroy RN RN tm6 Sandy Schwarz MD MD sw6 TENZIN KASPER RN RN dd2
--- NOTE | 2024-04-25 14:17 | EDPHYS ---
Physician Documentation [facility] Name: Kyle Walker Age: 79 yrs Sex: Male : 1945 Arrival Date: 04/25/2024 Time: 11:24 Bed 4 Private MD: ED Physician Sandy Schwarz HPI: 04/25 12:29 This 79 yrs old Male presents to ER via EMS with complaints of Irregular sw6 Pulse. 12:29 The patient presents from home with EMS for evaluation after having a syncopal episode sw6 just prior to arrival. He reports he felt light headed prior to the episode occurring. Upon EMS arrival he was noted to be hypotensive with systolic blood pressure in the 80s. He also was noted to have a heart rate ranging from the 30s to 90s and to have frequent PVCs. Therefore he was given 150 mg of amiodarone followed by an IV fluid bolus. He was then brought to the ER for evaluation. He does have a history of COPD and continues to smoke. He does not wear oxygen at home. He denies any chest pain or pressure. No cough or congestion. No fevers or chills. No nausea, vomiting or diarrhea. He did not eat this morning however that is normal for him. No history of diabetes or high blood pressure. Here for evaluation.. Historical: - Allergies: 11:39 Codeine; kc6 - PMHx: 11:39 cancer-stomach (ulcer/abd SX); COPD; Hernia; PTSD; kc6 - PSHx: 11:39 RLL removed; ulcer/abd SX; kc6 - Immunization history:: Adult Immunizations up to date. - Infectious Disease History:: Denies. - Social history:: Smoking status: Patient reports the use of cigarette tobacco products, smokes one pack cigarettes per day. ROS: 12:29 Constitutional: Negative for fever, chills, and weight loss, Cardiovascular: Negative sw6 for chest pain, palpitations, and edema, Respiratory: Negative for shortness of breath, cough, wheezing, and pleuritic chest pain, Abdomen/GI: Negative for abdominal pain, nausea, vomiting, diarrhea, and constipation, MS/Extremity: Negative for injury and deformity, Skin: Negative for injury, rash, and discoloration, Neuro: Negative for headache, weakness, numbness, tingling, and seizure, 12:29 Cardiovascular: 12:29 Cardiovascular: Positive for Syncope, 12:29 Back: Positive for Chronic back pain, Exam: 12:29 Constitutional: This is a well developed, well nourished patient who is awake, alert, sw6 and in no acute distress. Head/Face: Normocephalic, atraumatic. Cardiovascular: Regular rate and rhythm with a normal S1 and S2. No gallops, murmurs, or rubs. Normal PMI, no JVD. No pulse deficits. Respiratory: Lungs have equal breath sounds bilaterally, clear to auscultation and percussion. No rales, rhonchi or wheezes noted. No increased work of breathing, no retractions or nasal flaring. Abdomen/GI: Soft, non-tender, with normal bowel sounds. No distension or tympany. No guarding or rebound. No evidence of tenderness throughout. MS/ Extremity: Pulses equal, no cyanosis. Neurovascular intact. Full, normal range of motion. 12:29 ENT: Dry mucous membranes. 12:29 ECG was reviewed by the Attending Physician. Vital Signs: 11:35 BP 92 / 62; Pulse 52; Resp 18 S; Pulse Ox 95% on 2 lpm NC; Weight 72.12 kg (R); Height kc6 5 ft. 3 in. (R); 12:46 BP 120 / 61; Pulse 55; Resp 16 S; Pulse Ox 100% on 2 lpm NC; kc6 13:07 BP 109 / 64 RA Supine (man/reg); Pulse 53; Resp 18 S; Pulse Ox 99% on 3 lpm NC; kc6 13:07 BP 99 / 62 RA Sitting (man/reg); Pulse 54; Resp 19 S; Pulse Ox 99% on 2 lpm NC; kc6 13:58 BP 102 / 60; Pulse 58; Resp 19 S; Pulse Ox 100% on 2 lpm NC; kc6 14:42 Height 6 ft. 3 in. ; bd 15:13 BP 105 / 61; Pulse 61; Resp 16 S; Pulse Ox 100% on 2 lpm NC; kc6 18:38 BP 107 / 58; Pulse 52; Pulse Ox 100% on 2 lpm NC; MAP 71 mmHg; Pain 0/10; tm6 11:35 Body Mass Index 28.17 (72.12 kg, 190.5 cm) kc6 18:38 Pain Scale: Adult tm6 MDM: 11:37 Medical Screening Exam initiated 12:29 Differential Diagnosis Orthostatic hypotension, dehydration, ACS, arrhythmia, sw6 electrolyte abnormality. Data reviewed: vital signs, nurses notes, EMS record, EKG. 14:11 Data reviewed: lab test result(s), cardiac enzymes, CBC, electrolytes, hepatic panel, radiologic studies, plain films. Consideration of Admission/Observation Patient was admitted/placed on observation. Response to treatment: the patient's symptoms have mildly improved after treatment. ED course: The patient presented from home with EMS for evaluation after syncopal episode that occurred just prior to arrival. He was found to be hypotensive by EMS with systolic blood pressure in the 80s. EMS also noted he was sinus bradycardic on the monitor and had frequent PVCs. Therefore they gave him 150 mg of amiodarone as well as IV fluids prior to arrival in the ER. The patient remains hypotensive upon arrival to the ER but his blood pressure does improve with administration of IV fluids. He is still orthostatic after 2 L of fluid. His laboratory studies show baseline creatinine for him as well as normal cardiac enzymes. He will benefit from continued IV hydration as well as telemetry observation due to his syncopal episode. Will admit the patient to internal medicine for continued management.. 04/25 11:40 Order name: Basic Metabolic Panel; Complete Time: 13:06 04/25 11:40 Order name: CBC with Diff; Complete Time: 12:28 04/25 13:07 Interpretation: Within normal limits. 04/25 11:40 Order name: Hepatic Function; Complete Time: 13:06 04/25 13:06 Interpretation: ALB 2.5; Hypoalbuminemia. 04/25 11:40 Order name: Magnesium; Complete Time: 13:06 04/25 13:07 Interpretation: Within normal limits. 04/25 11:40 Order name: Troponin High Sensitivity; Complete Time: 13:06 04/25 13:07 Interpretation: Within normal limits. 04/25 11:40 Order name: Urinalysis w/ reflexes 04/25 11:41 Order name: Lactate w/ 2H reflex if indic.; Complete Time: 13:06 04/25 13:07 Interpretation: Abnormal. 04/25 12:38 Order name: Ghost Lactate-NO COLLECT Timer EDMS 04/25 15:12 Order name: Basic Metabolic Panel EDMS 04/25 15:12 Order name: Basic Metabolic Panel EDMS 04/25 15:12 Order name: Basic Metabolic Panel EDMS 04/25 15:12 Order name: Basic Metabolic Panel EDMS 04/25 15:12 Order name: Basic Metabolic Panel EDMS 04/25 15:12 Order name: Basic Metabolic Panel EDMS 04/25 15:12 Order name: CBC with Automated Diff EDMS 04/25 15:12 Order name: CBC with Automated Diff EDMS 04/25 15:12 Order name: CBC with Automated Diff EDMS 04/25 15:12 Order name: CBC with Automated Diff EDMS 04/25 15:12 Order name: CBC with Automated Diff EDMS 04/25 15:12 Order name: CBC with Automated Diff EDMS 04/25 15:12 Order name: Magnesium EDMS 04/25 15:12 Order name: Magnesium EDMS 04/25 15:12 Order name: Magnesium EDMS 04/25 15:12 Order name: Magnesium EDMS 04/25 15:12 Order name: Magnesium EDMS 04/25 15:12 Order name: Magnesium EDMS 04/25 15:12 Order name: Phosphorus EDMS 04/25 15:12 Order name: Phosphorus EDMS 04/25 15:12 Order name: Phosphorus EDMS 04/25 15:12 Order name: Phosphorus EDMS 04/25 15:12 Order name: Phosphorus EDMS 04/25 15:12 Order name: Phosphorus EDMS 04/25 15:12 Order name: Troponin High Sensitivity EDMS 04/25 15:12 Order name: Troponin High Sensitivity EDMS 04/25 15:12 Order name: Troponin High Sensitivity EDMS 04/25 15:12 Order name: Troponin High Sensitivity EDMS 04/25 15:24 Order name: Lactate Sepsis 2 HR Follow-up EDMS 04/25 11:40 Order name: Chest Single View XRAY; Complete Time: 12:28 04/25 12:29 Interpretation: No acute disease. 04/25 15:20 Order name: ERT ORTHOSTATIC V/S EDMS 04/25 11:40 Order name: Cardiac monitoring; Complete Time: 11:43 04/25 11:40 Order name: EKG - Nurse/Tech; Complete Time: 11:55 /18 11:40 Order name: IV Saline Lock; Complete Time: 11:43 sw6 04/25 11:40 Order name: Labs collected and sent; Complete Time: 11:56 sw6 04/25 11:40 Order name: NPO; Complete Time: 11:43 sw6 04/25 11:40 Order name: O2 Per Protocol; Complete Time: 11:43 sw6 04/25 11:40 Order name: O2 Sat Monitoring; Complete Time: 11:43 sw6 04/25 11:40 Order name: Orthostatics; Complete Time: 13:06 sw6 EC:29 Rate is 58 beats/min. Rhythm is regular. QRS [place] is Normal. [place] interval is normal. QRS sw6 interval is normal. QT interval is normal. No Q waves. T waves are Normal. No ST changes noted. Administered Medications: 11:56 Drug: NS 0.9% IV 1000 ml IV at 1 bolus Per protocol; to be given as a bolus over 60 kc6 minutes Route: IV; Rate: 1 bolus; Site: right antecubital; 13:06 Follow up: Response: No adverse reaction; IV Status: Completed infusion; IV Intake: kc6 1000ml 13:46 Drug: NS 0.9% IV 1000 ml IV at 1000 ml once; to be given as a bolus over 60 minutes kc6 Route: IV; Rate: 1000 ml; Site: right antecubital; 18:40 Follow up: Response: No adverse reaction; IV Status: Completed infusion; IV Intake: tm6 1000ml 14:20 Drug: Nicotine Transdermal Patch 21 mg/24 hr 1 patches Transdermal once Route: kc6 Transdermal; Site: affected area; 18:40 Follow up: Response: No adverse reaction tm6 Disposition Summary: 04/25/24 14:16 Hospitalization Ordered Notes: Hospitalization Status: Observation sw6 Provider: [place] sw6 Location: Telemetry/MedSurg (observation) sw6 Condition: Fair sw6 Problem: new sw6 Symptoms: have improved sw6 Bed/Room Type: Standard [facility] Room Assignment: 406(04/25/24 18:06) sp Diagnosis - Orthostatic hypotension sw6 - Syncope Near sw6 Forms: - Medication Reconciliation Form 6 - SBAR form 6 - Leadership Thank You Letter 6 Signatures: Dispatcher [employer] EDMS Rain Rodriguez Kaitlyn, RN RN kc6 Sandy Schwarz MD MD sw6 Florina Monroy RN tm6 Corrections: (The following items were deleted from the chart) 11:40 11:40 BASIC METABOLIC PANEL+C.LAB.BRZ ordered. EDMS EDMS 11:40 11:40 CBC+H.LAB.BRZ ordered. EDMS EDMS 11:40 11:40 HEPATIC FUNCTION+C.LAB.BRZ ordered. EDMS EDMS : 11:40 MAGNESIUM+C.LAB.BRZ ordered. EDMS EDMS 11:40 11:40 Troponin High Sensitivity+C.LAB.BRZ ordered. EDMS EDMS 11:40 11:40 Urinalysis+U.LAB.BRZ ordered. EDMS EDMS 11:40 11:40 Chest Single View+RAD.RAD.BRZ ordered. EDMS EDMS 13:06 13:06 ALB 2.5. sw6 sw6 18:06 14:16 sw6 sp
--- NOTE | 2024-04-25 14:39 | P.HP ---
Certification for Inpatient Patient admitted to: Observation With expected LOS: <2 Midnights Practitioner: I am a practitioner with admitting privileges, knowledge of patient current condition, hospital course, and medical plan of care. Services: Services provided to patient in accordance with Admission requirements found in Title 42 Section 412.3 of the Code of Federal Regulations Patient History Date of Service: 04/25/24 Reason for admission: symptomatic hypotension History of Present Illness: Kyle Walker is a 79 year old male with Pmhx cancer-stomach (ulcer/abd SX), COPD, Hernia, PTSD, smoking abuse who presents to the ED after syncopal episode. EMS reports SBP 80 with HR 30-90 with frequent PVCs, administered amiodarone 150 mg IV and IVF. He reports feeling lightheaded, dizzy, with diaphoresis prior to the syncopal episode, his son reports Kyle lost bowel and bladder this time. He fell the first time 2 weeks ago. He reports SBP is normally 119, he was recently diagnosed with stomach cancer and still being evaluated with EGD and PET scan. He reports smoking 1 1/2 packs of cigarettes daily. Chest xray reports "COPD without an acute process suspected." Initial vitals BP 92 / 62; Pulse 52; Resp 18 S; Pulse Ox 95% on 2 lpm NC. Kyle will be admitted to hospitalist service for further treatment. Allergies codeine Allergy (Verified 02/03/24 09:16) Nausea/Vomiting Home Medications: Finasteride [Proscar*] 5 mg PO DAILY 04/16/17 Fluticasone Propion/Salmeterol [Advair 250-50 Diskus] 1 puff IH BID 04/16/17 Sertraline [Zoloft*] 100 mg PO DAILY 04/16/17 Simvastatin 20 mg PO DAILY 04/16/17 Tamsulosin [Flomax*] 1 tab PO DAILY 04/16/17 Albuterol Sulfate [Proventil Hfa] 1 puff IH DAILY 06/24/17 Cetirizine HCl [Zyrtec] 10 mg PO DAILY 06/24/17 Cyanocobalamin (Vitamin B-12) [Vitamin B12] 2,500 mcg PO DAILY 06/24/17 Guaifenesin/Dextromethorphan [Mucus Dm 600-30 mg Tablet] 1 tab PO DAILY 06/24/17 Pantoprazole [Protonix Tab*] 40 mg PO BIDAC #84 tab 02/15/21 - Past Medical/Surgical History Diabetic: No -: COPD -: PTSD -: KIRT PARTIAL LOBECTOMY -: SERGO CATARACT SX -: [employer] RX - Family History Mother -: Cancer Notes: lymphoma Sister -: Cancer Notes: breast cancer Father -: Cancer - Social History Smoking Status: Current every day smoker (1 1/2 pack) Alcohol use: Yes CD- Drugs: No Caffeine use: Yes Review of Systems General: Weakness Neurological: Other (dizziness, lightheadedness) Physical Examination - Physical Exam General: Alert, In no apparent distress, Oriented x3 HEENT: Atraumatic, Normocephalic, PERRLA Neck: Supple, 2+ carotid pulse no bruit Respiratory: Clear to auscultation bilaterally, Normal air movement Cardiovascular: Normal pulses, Normal S1 S2, Irregular heart rate/rhythm (bradycardia) Capillary refill: <2 Seconds Gastrointestinal: Normal bowel sounds, Soft and benign Musculoskeletal: No clubbing Integumentary: No rashes Neurological: Normal speech, Normal tone - Studies Laboratory Data (last 24 hrs) 04/25/24 04/25/24 12:00 12:00 WBC 12.20 H Hgb 9.1 L Hct 28.2 L Plt Count 235 Sodium 138 Potassium 4.6 BUN 22 H Creatinine 1.60 H Glucose 141 H Magnesium 2.0 Total Bilirubin 0.3 AST 11 L ALT < 14 L Alkaline Phosphatase 52 Assessment and Plan - Plan Syncopy 2/2 orthostatic Hypotension Lactic acidosis likely 2/2 hypotension -Chest xray reports "COPD without an acute process suspected." -continuous telemetry -orthostatic vitals -troponin pending -Lactic acid 2.1, rechecked 0.9 -two liters NS given in the ED -Continue gentle IVF Anemia History of GI bleed stomach cancer -H/H 9.1/28.2, dropped from 12/13 H/H 12.5/37.4 -recheck in the AM -Following with Dr. Padron and Dr. Mendoza CKD -BUN/creatinine 22/1.60, GFR 44, seems to be at baseline -gentle IVF -Monitor in AM labs Hyperglycemia -Serum glucose 141 -Monitor in AM labs COPD PTSD -continue home medications Smoking abuse -smoking cessation education provided -Nicotine patch provided DVT ppx SCD, d/t anemia and history of GI bleed Full code LOS 24 hour OBS Discharge Plan: Home Plan to discharge in: 24 Hours - Advance Directives Does patient have a Living Will: No Does patient have a Durable POA for Healthcare: No
[2024-04-25 16:22] LABS: Specific Gravity 1.019 (1.005-1.030); Urine Bilirubin NEGATIVE (Negative); Urine Blood Negative (Negative); Urine Clarity Clear (Clear); Urine Color Light-Yellow (Yellow); Urine Glucose NEGATIVE (Negative); Urine Ketones NEGATIVE (Negative); Urine Microscopic Reflex YN NO UMIC; Urine Nitrite NEGATIVE (Negative); Urine Protein NEGATIVE (Negative); Urine Urobilinogen Normal (Normal)
[2024-04-25] MEDS ORDERED: HEPARIN 5000 UNIT/ML 1 ML VIAL SQ SCH (17:00)
[2024-04-25 20:24] VITALS: BMI 19.8
[2024-04-25] MEDS: ATORVASTATIN 10 MG TAB PO SCH (22:14)
--- NOTE | 2024-04-25 22:21 | RAD REPORT ---
EXAM: CT Chest Angio TECHNIQUE: CT angiogram of the chest was performed following intravenous contrast administration, inc luding sagittal and coronal as well as maximum intensity projection reformats. One or more of the following dose reduction techniques were used: Automated exposure control, adjustment of the mA and k V according to patient size, and iterative reconstruction. Unless otherwise specified, incidental findings do not require dedicated imaging follow-up. INDICATION: [facility] MAIN Syncopal episode. r/o PE COMPARISON: Chest radiograph of the same day. CT chest 10/08/2023 FINDINGS: LINES/TUBES: None. PULMONARY ARTERIES: Main pulmonary arteries are normal in caliber. No filling defects within the pul monary arteries to suggest pulmonary embolus. LUNGS AND AIRWAYS: Moderate paraseptal and centrilobular emphysematous changes. Peribronchovascular a nterior right lower lobe 7 mL nodule on axial image 75, stable. 4 mm posterior right upper lobe nodule on axial image 06/05 stable. There are multiple vascular rounded anterior right lower lobe 6 mL nodule on axial image 70, stable. Focus of stellate scarring with adjacent alveolar lucencies in the superior left upper lobe, axial image 111, stable. The lungs and central airways are otherwise no rmal without focal abnormality. PLEURA: No effusion or pneumothorax. HEART AND MEDIASTINUM: The visualized thyroid gland is normal. No mediastinal, hilar, or axillary lym phadenopathy. Heart is unremarkable. No pericardial effusion. SOFT TISSUES AND BONES: No acute osseous abnormality. No significant soft tissue finding. UPPER ABDOMEN: Unremarkable. IMPRESSION: No evidence of acute central pulmonary emboli. Stable pulmonary nodules as above. Given the findings of pulmonary emphysematous changes mentioned above, please correlate clinically fo r a formal diagnosis of pulmonary emphysema. Pulmonary emphysema is considered an independent risk factor for lung cancer, consider evaluating the patient for a low dose CT lung cancer screening progr am.
[2024-04-26] MEDS: NA CHLORIDE 0.9% 1,000 ML IV SCH (01:13)
[2024-04-26 06:45] LABS: Absolute Eosinophils 0.2 K/uL (0-0.5); Absolute Lymphocytes (CBC) 1.6 K/uL (0.7-4.9); Absolute Monocytes 0.7 K/uL (0.1-1.3); Absolute Neutrophil 4.8 K/uL (1.8-8.0); Basophils % 0.6 % (0-1.3); Eosinophils % 2.1 % (0-4.4); Hematocrit 25.2 % (39.6-49.0); Hemoglobin 8.1 g/dL (13.6-17.9); Lymphocytes % 21.5 % (15.3-44.8); MCH 31.6 pg (27.0-35.0); MCHC 32.3 g/dL (32.0-36.0); MCV 97.7 fL (80-100); Monocytes % 9.2 % (3.3-12.3); Neutrophils % 66.6 % (41.7-73.7); Platelets 192 thou/uL (152-406); RBC Red Blood Cell Count 2.57 M/uL (4.33-5.43); Red Cell Distribution Width 13.2 % (12.1-15.2)
[2024-04-26 07:11] LABS: Anion Gap 8.5 mEq/L (5.0-15.0); Phosphorus 2.2 mg/dL (2.5-4.9); Potassium 4.5 mEq/L (3.5-5.1)
[2024-04-26] MEDS ORDERED: FLU (Fluarix Triv) TS24-25(6MOS UP)/PF 45 MCG/0.5 ML Syringe IM ONE (07:30)
[2024-04-26 08:01] LABS: Percent Reticulocyte Count 0.82 % (0.4-2.05); RBC Red Blood Cell Count 2.73 M/uL (4.33-5.43)
[2024-04-26 08:13] LABS: Ferritin 43.9 ng/mL (26-388)
[2024-04-26] MEDS ORDERED: HOME MED 1 EA UNK (Simvastatin [Simvastatin] 10 MG Tablet) PO SCH (09:00)
[2024-04-26] MEDS: SERTRALINE HCL 100 MG TAB PO SCH (09:00)
[2024-04-26] MEDS: PANTOPRAZOLE 40MG TABLET PO SCH (09:27)
[2024-04-26] MEDS: FINASTERIDE 5 MG TAB PO SCH (09:27)
[2024-04-26] MEDS: TAMSULOSIN 0.4 MG SR CAP PO SCH (09:27)
[2024-04-26] MEDS: POTASS/SODIUM PHOSPHATE 1 PKT POWD.PACK PO SCH (09:28)
--- NOTE | 2024-04-26 09:52 | P.PN ---
Subjective Date of Service: 04/26/24 Chief Complaint: symptomatic hypotension Subjective: Improving No event overnight, patient had no more episodes of dizziness or syncopal attack. He has no complaint, no chest pain or melena or hematochezia or abdominal pain. Telemetry reviewed sinus bradycardia as low as 50s Review of Systems Other: Consitutional; fever(-), chills (-), rigor(-), night sweat(-), unintentional weight loss(-), malaise (-) HEENT; diplopia (-), rhinorrhea (-), epistaxis (-), otorrhea (-), otalgia (-) Respiratory; shortness of breath (-), wheezing (-), cough (-), sputum (-), pleuritic chest pain (-) Cardiovascular; chest pain (-), peripheral edema (-), paroxysmal nocturnal dyspnea (-), orthopnea (-) Gastrointestinal; nausea (-), vomiting (-), abdominal pain (-), diarrhea (-), constipation (-), melena (-), hematochezia (-) Genitourinary; urinary frequency (-), dysuria (-), urgency (-), flank pain (-), gross hematuria (-), incontinence (-) Skin; rash (-), pruritus (-) DISTRI[employer]ED [employer]S CONSULTANT; headache (-), paresthesia (-), numbness (-), paralysis (-) Physical Examination - Vital Signs Temperature: 98.3 F Blood Pressure: 159/64 Pulse: 52 Respirations: 20 Pulse Ox (%): 100 - Physical Exam Other Physical/Emotional Findings: - Physical Exam. General: Chronic ill- looking, emaciated, in no apparent distress,. HEENT: Normocephalic, atraumatic, nonicteric sclera, nonanemic conjunctive. Neck: Supple, without JVD or goiter or thyroid mass. Respiratory: Normal breathing effort, clear to auscultation bilaterally, no crackles no wheezing or rhonchi. Cardiovascular: Regular rate and rhythm, S1, S2 normal, no murmur no gallop. Gastrointestinal: Normal bowel sounds, nondistended, nontender, No ascites, , No masses, no hepatosplenomegaly. Extremities : No clubbing, No peripheral edema, full range of motion, no deformity, no muscle atrophy. Integumentary: No rashes, petechia, suspected lesions. Lymphatics: No axilla or cervical lymphadenopathy. Neurology; alert awake oriented x3, no focal neurologic deficit, normal affection . mood and behavior. - Studies Laboratory Data (last 24 hrs) 04/25/24 04/25/24 12:00 12:00 WBC 12.20 H Hgb 9.1 L Hct 28.2 L Plt Count 235 Sodium 138 Potassium 4.6 BUN 22 H Creatinine 1.60 H Glucose 141 H Magnesium 2.0 Total Bilirubin 0.3 AST 11 L ALT < 14 L Alkaline Phosphatase 52 Assessment And Plan - Plan This is 79 years old gentleman with past medical history notable for recent diagnosis of stomach cancer, untreated, COPD, ex-smoker, status post pulmonary lobectomy who presented to emergency room for syncopal attack. He felt dizzy and nauseated and diaphoretic before he passed out, he had a urinary and fecal incontinence afterward. He had a similar syncopal attack in the past, workup shows no cause of syncope or he was admitted on general medical floor. #1 syncope DDx include orthostatic hypotension secondary to dehydration or asymptomatic anemia Telemetry overnight shows sinus bradycardia as low as 50/min CT of the chest was performed last night shows no pulmonary embolism but appears emphysematous change in both upper lobe Past medical history reviewed; nonobstructive coronary artery disease by coronary angiogram in February 2024 No structural heart disease by April 2023, I will cancel it a repeat transthoracic echocardiogram ordered by other physician. #2 iron deficiency anemia in underlying untreated stomach cancer Hemoglobin down 8 from 9.1, no clinical overt bleeding. 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
--- NOTE | 2024-04-26 09:58 | P.CNS ---
Date of Consult: 04/26/24 Chief Complaint: symptomatic hypotension History of Present Illness: Patient with active stomach cancer, COPD presented with near syncope and fall, patient denies chest pain, no palpitations, no SOB. Allergies codeine Allergy (Verified 02/03/24 09:16) Nausea/Vomiting Home medications list reviewed: Yes Home Medications: Fluticasone Propion/Salmeterol [Advair 250-50 Diskus] 1 puff IH BID 04/16/17 Albuterol Sulfate [Proventil Hfa] 2 puff IH Q4HP PRN 06/24/17 Aspirin Chewable [Aspirin Chewable*] 81 mg PO DAILY 04/25/24 Docusate Sodium [Stool Softener] 100 mg PO DAILY 04/25/24 Potassium Chloride [K-Dur] 20 meq PO DAILY 04/25/24 - Past Medical/Surgical History Diabetic: No -: COPD -: PTSD -: stomach CA -: KIRT PARTIAL LOBECTOMY -: SERGO CATARACT SX -: [employer] RX - Family History Mother Medical History: Cancer Notes: lymphoma Sister Medical History: Cancer Notes: breast cancer Father Medical History: Cancer - Social History Smoking Status: Current every day smoker Alcohol use: No CD- Drugs: No Caffeine use: Yes Place of Residence: Home Review of Systems 10-point ROS is otherwise unremarkable Physical Examination Temp Pulse Resp BP Pulse Ox 98.3 F 52 20 159/64 H 100 04/26/24 09:52 04/26/24 09:52 04/26/24 09:52 04/26/24 09:52 04/26/24 09:52 General: Alert, In no apparent distress HEENT: Atraumatic, PERRLA, Mucous membr. moist/pink, EOMI, Sclerae nonicteric Neck: Supple, 2+ carotid pulse no bruit, No LAD, Without JVD or thyroid abnormality Respiratory: Clear to auscultation bilaterally, Normal air movement Cardiovascular: Regular rate/rhythm, Normal S1 S2 Gastrointestinal: Normal bowel sounds, No tenderness Musculoskeletal: No tenderness Integumentary: No rashes Neurological: Normal gait, Normal speech, Normal tone, Normal affect Lymphatics: No axilla or inguinal lymphadenopathy Laboratory Data (last 24 hrs) 04/25/24 04/25/24 12:00 12:00 WBC 12.20 H Hgb 9.1 L Hct 28.2 L Plt Count 235 Sodium 138 Potassium 4.6 BUN 22 H Creatinine 1.60 H Glucose 141 H Magnesium 2.0 Total Bilirubin 0.3 AST 11 L ALT < 14 L Alkaline Phosphatase 52 - Problems (1) Elevated troponin Current Visit: Yes Status: Acute Plan: most likely type 2 MA, patient troponin trending down, he had a coronary angiogram done back in 02/2024 that shown mild CAD, no further cardiac work up needed. (2) Syncope Current Visit: Yes Status: Acute Plan: check orthostatic and hydration, also work up for anemia
--- NOTE | 2024-04-26 11:27 | EKG ---
Test Date: 2024-04-25 Test Time: 11:53:05 People Manager: MCKAYLA MEASUREMENT RESULTS: Intervals: Rate: 58 KS: 168 QRSD: 84 QT: 458 QTc: 449 [place]: P: 71 KS: 168 QRS: 37 T: 69 INTERPRETIVE STATEMENTS: Sinus bradycardia with frequent and consecutive premature ventricular complexes Abnormal ECG Compared to ECG 04/20/2024 07:55:37 Ventricular premature complex(es) now present Myocardial infarct finding no longer present Electronically Signed On 04-26-24 11:26:59 [employer] by Lucho Baldwin
--- NOTE | 2024-04-26 14:31 | ECHO ---
HEIGHT: 6 ft 3 in WEIGHT: 159 lb 0 oz DATE OF STUDY: 04/26/[address]: Prince Mario Alberto Wilkes MD 2-DIMENSIONAL: YES M.MODE: YES DOPPLER: YES COLOR FLOW: YES TDS: NO PORTABLE: YES DEFINITY: NO BUBBLE STUDY: NO DIAGNOSIS: HIGH TROPONIN CARDIAC HISTORY: CATHERIZATION: NO SURGERY: NO PROSTHETIC VALVE: NO PACEMAKER: NO MEASUREMENTS (cm) DIASTOLIC (NORMALS) SYSTOLIC (NORMALS) IVSd 1.1 (0.6-1.2) LA Diam 2.9 (1.9-4.0) LVEF 60-65% LVIDd 4.5 (3.5-5.7) LVIDs 3.0 (2.0-3.5) %FS 35% LVPWd 1.2 (0.6-1.2) Ao Diam 2.6 (2.0-3.7) 2 DIMENSIONAL ASSESSMENT: RIGHT ATRIUM: NORMAL LEFT ATRIUM: NORMAL RIGHT VENTRICLE: NORMAL LEFT VENTRICLE: NORMAL TRICUSPID VALVE: TRACE TRICUSPID REGURGITATION MITRAL VALVE: TRACE MITRAL REGURGITATION PULMONIC VALVE: NORMAL AORTIC VALVE: NORMAL PERICARDIAL EFFUSION: NONE AORTIC ROOT: NORMAL LEFT VENTRICULAR WALL MOTION: NORMAL. DOPPLER/COLOR FLOW: NORMAL. COMMENTS: 1. NORMAL LEFT VENTRICULAR SYSTOLIC FUNCTION. LEFT VENTRICULAR EJECTION FRACTION 60-65%. NORMAL WALL MOTION. 2. NORMAL DIASTOLIC FUNCTION. TECHNOLOGIST: MUSHTAQ LINDA
[2024-04-26] MEDS: ACETAMINOPHEN 325 MG TABLET PO PRN (14:39)
[2024-04-26] MEDS: NICOTINE 21 MG/PAT TD SCH (16:45)
[2024-04-26] MEDS ORDERED: HYDROCODONE/APAP 5/325 MG TAB PO PRN (17:25)
[2024-04-26] MEDS ORDERED: MORPHINE 2 MG/ML SYR IV PRN (17:25)
[2024-04-27 06:09] LABS: Absolute Eosinophils 0.2 K/uL (0-0.5); Absolute Lymphocytes (CBC) 1.3 K/uL (0.7-4.9); Absolute Monocytes 0.5 K/uL (0.1-1.3); Absolute Neutrophil 3.6 K/uL (1.8-8.0); Basophils % 0.9 % (0-1.3); Eosinophils % 4.3 % (0-4.4); Hematocrit 26.3 % (39.6-49.0); Hemoglobin 8.7 g/dL (13.6-17.9); Lymphocytes % 22.2 % (15.3-44.8); MCHC 32.9 g/dL (32.0-36.0); MCV 97.3 fL (80-100); MPV 8.1 fL (7.6-11.3); Monocytes % 9.6 % (3.3-12.3); Platelets 189 thou/uL (152-406); Red Cell Distribution Width 13.2 % (12.1-15.2)
[2024-04-27 06:22] LABS: Anion Gap 7.1 mEq/L (5.0-15.0); Phosphorus 2.8 mg/dL (2.5-4.9); Potassium 4.1 mEq/L (3.5-5.1)
[2024-04-27] MEDS: SOD FERRIC GLUC COMPLX/SUCROSE 250 MG in NA CHLORIDE 0.9% 250 ML IV SCH (08:56)
--- NOTE | 2024-04-27 09:17 | P.DS ---
Admission Date: 04/26/24 Discharge Date: 04/27/24 Disposition: ROUTINE DISCHARGE Discharge Condition: GOOD Reason for Admission: symptomatic hypotension Brief History of Present Illness: This is 79 years old gentleman with past medical history notable for recent diagnosis of stomach cancer, untreated, COPD, ex-smoker, status post pulmonary lobectomy who presented to emergency room for syncopal attack. He felt dizzy and nauseated and diaphoretic before he passed out, he had a urinary and fecal incontinence afterward. He had a similar syncopal attack in the past, workup shows no cause of syncope or he was admitted on general medical floor. Hospital Course: His hospital course was uneventful, no more syncopal or dizzy spell during hospitalization. His telemetry shows sinus bradycardia in the rate of 50s to 60s with infrequent PVC. No other tacky or bradycardia arrhythmia noted. Orthostatic blood pressure was ordered but never done. His hemoglobin was down to 9 but stabilized without any transfusion. Iron study ordered which demonstrated iron deficiency anemia. Patient received IV iron without any side effects. He had no clinical overt bleeding during hospital stay. He is to go h ome with oral iron supplement. He is to follow-up with his oncology as scheduled. #1 syncope likely orthostatic hypotension secondary to dehydration CT of the chest was performed last night shows no pulmonary embolism but appears to be emphysematous change in both upper lobe Past medical history reviewed; nonobstructive coronary artery disease by coronary angiogram in February 2024 No structural heart disease by transthoracic echocardiogram in April 2023, #22 iron deficiency anemia in underlying untreated stomach cancer Hemoglobin stable around 9, no clinical overt bleeding. No fecal occult blood test available at this facility #3 elevated troponin without acute coronary syndrome related #2 #4 stable COPD with pulmonary emphysema by CT of the chest Nebulizer as needed, patient is well compensated with minimal symptom #5 untreated stomach cancer #6 cancer and COPD cachexia Vital Signs/Physical Exam: Temp Pulse Resp BP Pulse Ox 98.3 F 56 16 93/54 L 99 04/27/24 04:00 04/27/24 04:00 04/27/24 04:00 04/27/24 04:00 04/27/24 04:00 Other Physical/Emotional Findings: - Physical Exam. General: Chronic ill- looking, emaciated, in no apparent distress,. HEENT: Normocephalic, atraumatic, nonicteric sclera, nonanemic conjunctive. Neck: Supple, without JVD or goiter or thyroid mass. Respiratory: Decreased breath sound bilaterally no crackles no wheezing or rhonchi. Cardiovascular: Distant heart rate , regular rate and rhythm, S1, S2 normal, no murmur no gallop. Gastrointestinal: Normal bowel sounds, nondistended, nontender, No ascites, , No masses, no hepatosplenomegaly. Extremities : No clubbing, No peripheral edema, full range of motion, no deformity, no muscle atrophy. Integumentary: No rashes, petechia, suspected lesions. Lymphatics: No axilla or cervical lymphadenopathy. Neurology; alert awake oriented x3, no focal neurologic deficit, normal affection . mood and behavior. Laboratory Data at Discharge: WBC 5.70 thou/uL (4.3-10.9) 04/27/24 05:57 Hgb 8.7 g/dL (13.6-17.9) L 04/27/24 05:57 Hct 26.3 % (39.6-49.0) L 04/27/24 05:57 Plt Count 189 thou/uL (152-406) 04/27/24 05:57 Sodium 140 mEq/L (136-145) 04/27/24 05:57 Potassium 4.1 mEq/L (3.5-5.1) 04/27/24 05:57 BUN 31 mg/dL (7-18) H 04/27/24 05:57 Creatinine 1.32 mg/dL (0.70-1.30) H 04/27/24 05:57 Glucose 97 mg/dL (74-106) 04/27/24 05:57 Phosphorus 2.8 mg/dL (2.5-4.9) 04/27/24 05:57 Magnesium 2.0 mg/dL (1.6-2.4) 04/27/24 05:57 Total Bilirubin 0.3 mg/dL (0.2-1.0) 04/25/24 12:00 AST 11 U/L (15-37) L 04/25/24 12:00 ALT < 14 U/L (16-61) L 04/25/24 12:00 Alkaline Phosphatase 52 U/L (45-117) 04/25/24 12:00 Home Medications: Fluticasone Propion/Salmeterol [Advair 250-50 Diskus] 1 puff IH BID 04/16/17 Albuterol Sulfate [Proventil Hfa] 2 puff IH Q4HP PRN 06/24/17 Aspirin Chewable [Aspirin Chewable*] 81 mg PO DAILY 04/25/24 Docusate Sodium [Stool Softener] 100 mg PO DAILY 04/25/24 Potassium Chloride [K-Dur] 20 meq PO DAILY 04/25/24 Atorvastatin Calcium [Lipitor*] 10 mg PO BEDTIME tab 04/27/24 Ferrous Gluconate 324 mg PO BID #60 04/27/24 Finasteride [Proscar*] 5 mg PO DAILY tab 04/27/24 Hydrocodone 5/APAP 325 [[place] 5/325*] 1 tab PO Q6H PRN tab 04/27/24 Nicotine [Nicoderm*] 21 mg TD DAILY 04/27/24 Pantoprazole [Protonix Tab*] 40 mg PO BIDAC tab 04/27/24 Sertraline [Zoloft*] 100 mg PO DAILY tab 04/27/24 Tamsulosin [Flomax*] 0.4 mg PO DAILY cap 04/27/24 New Medications: Ferrous Gluconate 324 mg PO BID #60 Followup: Aurora Cline FNP [Primary Care Provider] -
[2024-04-27 09:37] VITALS: O2SAT 99
[2024-04-27 09:40] VITALS: BP 93/51; TEMP 97.8
--- NOTE | 2024-04-27 15:43 | EKG ---
Test Date: 2024-04-25 Test Time: 22:12:00 Web Content Director: 33 MEASUREMENT RESULTS: Intervals: Rate: 52 UT: 186 QRSD: 90 QT: 434 QTc: 403 [place]: P: 74 UT: 186 QRS: 44 T: 69 INTERPRETIVE STATEMENTS: Sinus bradycardia Otherwise normal ECG Compared to ECG 04/25/2024 11:53:05 Ventricular premature complex(es) no longer present Electronically Signed On 04-27-24 15:42:08 DONOR SERVICES TECHNICIAN by Lucho Baldwin
== END 2024-04-27 10:56 | disposition home or self-care (01) | DRG 281 ==
LOC: ER 11:24 → ERHOLD 15:01 → 4TH 18:31 → OBSVTOIN 04-26 11:38
PROVIDERS: ADMIT Internal Medicine; ATTEND Internal Medicine
DX: I95.1 Orthostatic hypotension (principal); E87.20 Acidosis, unspecified; I21.A1 Myocardial infarction type 2; Z68.1 Body mass index [BMI] 19.9 or less, adult; R64 Cachexia; E86.0 Dehydration; I49.3 Ventricular premature depolarization; F43.10 Post-traumatic stress disorder, unspecified; N18.9 Chronic kidney disease, unspecified; D63.1 Anemia in chronic kidney disease; D50.9 Iron deficiency anemia, unspecified; D63.0 Anemia in neoplastic disease; J43.9 Emphysema, unspecified; I25.10 Atherosclerotic heart disease of native coronary artery without angina pectoris; F17.210 Nicotine dependence, cigarettes, uncomplicated; R73.9 Hyperglycemia, unspecified; Z88.5 Allergy status to narcotic agent; Z90.2 Acquired absence of lung [part of]; Z79.82 Long term (current) use of aspirin; Z79.899 Other long term (current) drug therapy; Z85.028 Personal history of other malignant neoplasm of stomach
CPT/HCPCS: 36415; 71045; 71275; 80048; 80076; 81003; 82728; 83010; 83540; 83605; 83615; 83735; 84100; 84466; 84484; 85025; 85044; 86850; 86900; 86901; 93005; 93306; 96360; 96361; 99285; G0378; J2916; J7030; J7050; Q9967

== ENCOUNTER 2024-05-12 10:32 | Emergency (ER) | payer OTHER ==
[2024-05-12] MEDS ORDERED: NA CHLORIDE 0.9% 1,000 ML ONE ×2 (10:46→12:03)
[2024-05-12 10:47] LABS: Absolute Basophils 0.1 K/uL (0-0.5); Absolute Eosinophils 0.1 K/uL (0-0.5); Absolute Lymphocytes (CBC) 1.3 K/uL (0.7-4.9); Absolute Monocytes 0.3 K/uL (0.1-1.3); Absolute Neutrophil 3.3 K/uL (1.8-8.0); Basophils % 1.1 % (0-1.3); Eosinophils % 2.2 % (0-4.4); Hematocrit 27.8 % (39.6-49.0); Hemoglobin 9.3 g/dL (13.6-17.9); Lymphocytes % 25.6 % (15.3-44.8); MCH 32.7 pg (27.0-35.0); MCHC 33.7 g/dL (32.0-36.0); MCV 97.2 fL (80-100); MPV 8.1 fL (7.6-11.3); Monocytes % 5.3 % (3.3-12.3); Neutrophils % 65.8 % (41.7-73.7); Nucleated Red Blood Cells % 0.2 % (0-0); Platelets 196 thou/uL (152-406); RBC Red Blood Cell Count 2.86 M/uL (4.33-5.43)
[2024-05-12 11:06] LABS: Anion Gap 6.7 mEq/L (5.0-15.0); Potassium 3.7 mEq/L (3.5-5.1); Troponin High Sensitivity 7.5 pg/mL (<58.9)
[2024-05-12 11:28] LABS: SARS-CoV-2 Antigen CONTROL BLUE LINE VIS/BG OK; SARS-CoV-2 Antigen Rapid Res Negative (Negative)
--- NOTE | 2024-05-12 11:34 | RAD REPORT ---
EXAMINATION: ONE VIEW CHEST XR CLINICAL INDICATION: COUGH TECHNIQUE: Frontal chest projection is submitted. Examination is limited by patient positioning and t echnique. COMPARISON: 04/25/2024 FINDINGS: The lungs are diffusely emphysematous but grossly clear. The heart is normal in size. No displaced fr actures identified. IMPRESSION: COPD without an acute process suspected.
--- NOTE | 2024-05-12 11:50 | RAD REPORT ---
EXAMINATION: CT ABDOMEN AND PELVIS WITH CONTRAST CLINICAL INDICATION: worsened abd pain, known hx of gastric cancer TECHNIQUE: CT abdomen and pelvis was performed, after the administration of IV contrast, as [facility]. Axial, sagittal and coronal reconstructions were obtained. One or more of the following dose reduction techniques were used: Automated exposure control, adjustment of the mA and k V according to patient size, and iterative reconstruction. Unless otherwise specified, incidental findings do not require dedicated imaging follow-up. COMPARISON: 04/20/2024 FINDINGS: LOWER CHEST: The visualized lung bases are clear. Significant stomach wall thickening again noted par ticularly along the anterior body measures up to 2.8 cm. There is mild fluid in the left upper quadrant adjacent to the thickened gastric wall. Assessment is limited by lack of distention of the s tomach LIVER: Mild fatty liver is present. No focal lesion or biliary dilatation is seen. Contracted gallb ladder. SPLEEN: Normal size. No focal lesion. PANCREAS: No mass, ductal dilation, or osorio-pancreatic fluid. ADRENALS: Normal; no mass. KIDNEYS: Normal size and contour. No hydronephrosis. Bilateral renal lesions which are either benign in appearance or too small to accurately characterize but statistically benign. GASTROINTESTINAL TRACT: No evidence of free air, significant intra-abdominal free fluid, bowel obstru ction or abscess. APPENDIX: Normal appendix. LYMPH NODES: No lymphadenopathy. MUSCULOSKELETAL: Significant degenerative changes seen in lower lumbar spine. ADDITIONAL FINDINGS: None. IMPRESSION: Significant irregular thickening of the stomach wall anteriorly likely neoplastic in origin. There is small amount of adjacent fluid in left upper quadrant. Elsewhere, there is no acute abnormality discerned. Moderate lower lumbar degenerative changes.
--- NOTE | 2024-05-12 12:48 | ER ---
Nurse's Notes [facility] Name: Kyle Walker Age: 79 yrs Sex: Male : 1945 Arrival Date: 05/12/2024 Time: 10:32 Bed 14 Private MD: Diagnosis: Upper abdominal pain, unspecified;Anemia, unspecified;Dehydration Presentation: 05/12 10:33 Chief complaint: EMS states: Dizziness, nausea, and epigastric pain that started rs5 yesterday. Recently diagnosed with stomach cancer, is currently not undergoing treatment. Coronavirus screen: At this time, the client does not indicate any symptoms associated with coronavirus-19. Ebola Screen: No symptoms or risks identified at this time. Initial Sepsis Screen: Does the patient meet any 2 criteria? No. Patient's initial sepsis screen is negative. Does the patient have a suspected source of infection? No. Patient's initial sepsis screen is negative. Risk Assessment: Do you want to hurt yourself or someone else? Patient reports no desire to harm self or others. Onset of symptoms was May 11, 2024. 10:33 Method Of Arrival: EMS: [facility] rs5 10:33 Acuity: YOLANDA 3 rs5 Historical: - Allergies: 10:35 Codeine; rs5 - PMHx: 10:35 Hernia; COPD; cancer-stomach (ulcer/abd SX); rs5 - PSHx: 10:35 RLL removed; ulcer/abd SX; rs5 - Immunization history:: Adult Immunizations up to date. - Infectious Disease History:: Denies. - Social history:: Smoking status: Patient/guardian denies using tobacco, but has a distant history of tobacco abuse. Screenin:34 [facility] ED Fall Risk Assessment (Adult) History of falling in the last 3 months, rs5 including since admission Yes- single mechanical fall (1 pt) Confusion or Disorientation No (0 pts) Intoxicated or Sedated No (0 pts) Impaired Gait Yes (1 pt) Mobility Assist Device Used Yes (1 pt) Altered Elimination No (0 pt) Score/Fall Risk Level 3 or more points = High Risk Oriented to surroundings, Maintained a safe environment. Abuse screen: Denies threats or abuse. Nutritional screening: No deficits noted. Tuberculosis screening: No symptoms or risk factors identified. Assessment: 10:35 General: Appears in no apparent distress. uncomfortable, Behavior is calm, cooperative. rs5 Pain: Denies pain. Neuro: Level of Consciousness is awake, alert, obeys commands, Oriented to person, place, time, situation, Reports dizziness. Cardiovascular: Patient's skin is warm and dry. Respiratory: Airway is patent Respiratory effort is even, unlabored, Respiratory pattern is regular, symmetrical. GI: Abdomen is round non-distended, Abd is soft and non tender X 4 quads. Reports nausea. : No signs and/or symptoms were reported regarding the genitourinary system. EENT: No signs and/or symptoms were reported regarding the EENT system. Derm: Skin is intact, Skin is pink, warm \T\ dry. Musculoskeletal: Range of motion: intact in all extremities. 11:14 Reassessment: Patient and/or family updated on plan of care and expected duration. Pain rs5 level reassessed. Patient is alert, oriented x 3, equal unlabored respirations, skin warm/dry/pink. provider notified of latest vitals. 12:10 Reassessment: Patient is alert, oriented x 3, equal unlabored respirations, skin rs5 warm/dry/pink. to bedside for second bag of IV fluids 1,000 to IV to right AC per MD order. 12:22 Reassessment: Patient and/or family updated on plan of care and expected duration. Pain rs5 level reassessed. Patient is alert, oriented x 3, equal unlabored respirations, skin warm/dry/pink. 12:58 Reassessment: second bag of fluids complete, no adverse reaction noted, total intake rs5 999. 13:01 Reassessment: Patient and/or family updated on plan of care and expected duration. Pain rs5 level reassessed. Patient is alert, oriented x 3, equal unlabored respirations, skin warm/dry/pink. Vital Signs: 10:33 BP 101 / 56; Pulse 55; Resp 17; Temp 98(O); Pulse Ox 93% on R/A; rs5 11:14 BP 99 / 52; Pulse 44; Resp 17; Pulse Ox 98% on R/A; rs5 11:52 BP 112 / 49; ec2 12:01 BP 105 / 57; Pulse 55; Resp 17; Pulse Ox 98% on R/A; rs5 12:42 BP 145 / 60; Pulse 47; ec2 12:50 BP 112 / 64; Pulse 51; Resp 16; Pulse Ox 98% on R/A; rs5 ED Course: 10:33 Patient arrived in ED. rs5 10:33 Renard Jenkins MD is Attending Physician. ec2 10:33 Maintain EMS IV. Dressing intact. Good blood return noted. Site clean \T\ dry. Gauge \T\ rs 5 site: 20g RAC. Flushed with 10 mL NS. 10:35 Triage completed. rs5 10:35 Arm band placed on right wrist. rs5 10:35 Patient has correct armband on for positive identification. Placed in gown. Bed in low rs5 position. Call light in reach. Side rails up X2. 10:35 Client placed on continuous cardiac and pulse oximetry monitoring. NIBP monitoring rs5 applied. air sampling and monitoring on. Pulse ox on. NIBP on. 10:36 Humberto Snider, RN is Primary Nurse. rs5 11:16 No provider procedures requiring assistance completed. rs5 11:29 XRAY Chest (1 view) In Process Unspecified. EDMS 11:36 CT Abd/Pelvis - IV Contrast Only In Process Unspecified. EDMS 12:55 Provided Education on: discharge instructions . rs5 13:05 IV discontinued, intact, bleeding controlled, No redness/swelling at site. Pressure rs5 dressing applied. Administered Medications: 11:14 Drug: NS 0.9% IV 1000 ml IV at 1 bolus Per protocol; to be given as a bolus over 60 rs5 minutes Route: IV; Rate: 1 bolus; Site: right antecubital; 12:10 Follow up: Response: No adverse reaction; IV Status: Completed infusion; IV Intake: rs5 999ml Medication: 11:17 VIS not applicable for this client. rs5 Intake: 12:10 IV: 999ml; Total: 999ml. rs5 Outcome: 12:47 Discharge ordered by . ec2 13:05 Discharged to home via wheelchair, with family, rs5 13:05 Condition: stable rs5 13:05 Discharge instructions given to patient, family, Instructed on discharge instructions, follow up and referral plans. medication usage, Demonstrated understanding of instructions, follow-up care, medications, Prescriptions given X 2, 13:09 Patient left the ED. rs5 Signatures: Dispatcher [employer] EDMS Humberto Snider, RN RN rs5 Reanrd Jenkins, MD ec2
--- NOTE | 2024-05-12 12:48 | EDPHYS ---
Physician Documentation [facility] Name: Kyle Walker Age: 79 yrs Sex: Male : 1945 Arrival Date: 05/12/2024 Time: 10:32 Bed 14 Private MD: ED Physician Renard Jenkins HPI: 05/12 10:39 This 79 yrs old Male presents to ER via EMS with complaints of Epigastric ec2 Pain. 10:39 Patient arrives today for evaluation of abdominal pain along with cough and cold ec2 symptoms. Patient reports that he has been having abdominal pain ongoing for several days, known history of gastric cancer. Not undergoing current chemotherapy. Patient reports some bouts of nausea. No vomiting, no diarrhea. Reports history of COPD, has a regular cough. . Historical: - Allergies: 10:35 Codeine; rs5 - PMHx: 10:35 Hernia; COPD; cancer-stomach (ulcer/abd SX); rs5 - PSHx: 10:35 RLL removed; ulcer/abd SX; rs5 - Immunization history:: Adult Immunizations up to date. - Infectious Disease History:: Denies. - Social history:: Smoking status: Patient/guardian denies using tobacco, but has a distant history of tobacco abuse. ROS: 10:39 Constitutional: as per hpi ec2 Exam: 10:39 Constitutional: GEN: NAD Head: atraumatic Eyes: EOMI Ears: External ears are ec2 normal. CV: regular rate LUNGS: no respiratory distress ABD: non-distended, soft, not tender, not guarding, not rigid, abdominal wall hernia noted easily reducible SKIN: no evidence of rashes MSK: no evidence of trauma Vital Signs: 10:33 BP 101 / 56; Pulse 55; Resp 17; Temp 98(O); Pulse Ox 93% on R/A; rs5 11:14 BP 99 / 52; Pulse 44; Resp 17; Pulse Ox 98% on R/A; rs5 11:52 BP 112 / 49; ec2 12:01 BP 105 / 57; Pulse 55; Resp 17; Pulse Ox 98% on R/A; rs5 12:42 BP 145 / 60; Pulse 47; ec2 12:50 BP 112 / 64; Pulse 51; Resp 16; Pulse Ox 98% on R/A; rs5 MDM: 10:34 Medical Screening Exam initiated ec2 10:39 Data reviewed: vital signs, nurses notes. ED course: Patient arrives today for ec2 abdominal pain. Emanation yields abdominal findings as above. Will obtain lab work, CT imaging as well as EKG. Differential includes process such as gastritis, gastroenteritis, viral process, lower suspicion for process such as bowel obstruction.. 10:59 ED course: EKG independently reviewed and interpreted by me, shows sinus rhythm, rate ec2 of 48, no acute ST segment elevations, intervals are nonactionable. . 11:05 ED course: CBC shows anemia, when compared to external records, appears similar.. ec2 11:15 ED course: Patient with bradycardia noted, has been seen multiple times with documented ec2 heart rates in the 40s and 50s and is also seen for bradycardia and hypotension that has since resolved with had resolved with crystalloid.. 12:46 ED course: On reassessment patient reports marked improvement in symptoms, patient with ec2 improving blood pressure after 2 L of crystalloid, labs appear within YONG. Will discharge and have patient follow-up PCP. Patient with bradycardia however has known history of bradycardia instructed him he needs to follow-up with primary care doctor as well as his dismantler. Return precautions given.. 05/12 10:34 Order name: Basic Metabolic Panel; Complete Time: 11:30 ec2 05/12 10:34 Order name: CBC with Diff; Complete Time: 11:04 05/12 10:34 Order name: Troponin HS; Complete Time: 11:30 05/12 10:39 Order name: Influenza Screen (a \T\ B); Complete Time: 11:30 ec05/12 10:39 Order name: SARS RAPID; Complete Time: 11:30 ec05/12 10:34 Order name: XRAY Chest (1 view); Complete Time: 12:01 ec2 05/12 10:34 Order name: CT Abd/Pelvis - IV Contrast Only; Complete Time: 12:01 ec2 05/12 10:34 Order name: EKG; Complete Time: 10:35 ec2 05/12 10:34 Order name: Cardiac monitoring; Complete Time: 11:17 ec2 05/12 10:34 Order name: EKG - Nurse/Tech; Complete Time: 11:17 ec05/12 10:34 Order name: IV Saline Lock; Complete Time: 10:47 ec2 05/12 10:34 Order name: Labs collected and sent; Complete Time: 10:47 ec2 05/12 10:34 Order name: O2 Per Protocol; Complete Time: 10:47 ec2 05/12 10:34 Order name: O2 Sat Monitoring; Complete Time: 10:47 ec2 Administered Medications: 11:14 Drug: NS 0.9% IV 1000 ml IV at 1 bolus Per protocol; to be given as a bolus over 60 rs5 minutes Route: IV; Rate: 1 bolus; Site: right antecubital; 12:10 Follow up: Response: No adverse reaction; IV Status: Completed infusion; IV Intake: rs5 999ml Disposition Summary: 05/12/24 12:47 Discharge Ordered Notes: Location: Home ec2 Condition: Stable ec2 Diagnosis - Upper abdominal pain, unspecified ec2 - Anemia, unspecified ec2 - Dehydration ec2 Followup: ec2 - With: Private Physician - When: - Reason: Re-evaluation by your physician Discharge Instructions: - Discharge Summary Sheet ec2 - Abdominal Pain, Adult ec2 Forms: - Medication Reconciliation Form ec2 - Antibiotic Education ec2 - Prescription Opioid Use ec2 - Patient Portal Instructions ec2 - Leadership Thank You Letter ec2 Prescriptions: - Zofran 4 mg Oral Tablet - take 1 tablet ORAL route every 12 hours As needed; 20 tablet; Refills: 0, ec2 Product Selection Permitted - Cyclobenzaprine 5 mg Oral Tablet - take 1 tablet ORAL route 3 times per day As needed; 15 tablet; Refills: 0, ec2 Product Selection Permitted Signatures: Dispatcher [employer] Humberto Caldwell RN RN rs5 Renard Jenkins MD MD ec2
[2024-05-12 13:15] VITALS: TEMP 98
[2024-05-12 13:18] VITALS: O2SAT 98
[2024-05-12 13:20] VITALS: BP 145/60
--- NOTE | 2024-05-21 11:18 | EKG ---
Test Date: 2024-05-12 Test Time: 10:53:59 Manager Site: JULEE MEASUREMENT RESULTS: Intervals: Rate: 48 AR: 72 QRSD: 86 QT: 452 QTc: 403 [place]: P: AR: 72 QRS: 58 T: 63 INTERPRETIVE STATEMENTS: Sinus bradycardia with short AR with occasional premature ventricular complexes Septal infarct, age undetermined Abnormal ECG Compared to ECG 04/25/2024 22:12:00 Ventricular premature complex(es) now present Short AR interval now present Myocardial infarct finding now present Electronically Signed On 05-21-24 11:04:51 LITHOGRAPHIC ARTIST by Lucho Baldwin
== END 2024-05-12 13:09 | disposition home or self-care (01) ==
LOC: ER 10:32
DX: R10.13 Epigastric pain (principal); D64.9 Anemia, unspecified; E86.0 Dehydration; Z11.52 Encounter for screening for COVID-19
CPT/HCPCS: 93005; 85025; 80048; 36415; 84484; 87804 ×2; 74177; 71045; 96360; 99285; 87811; Q9967; J7030 ×2

== ENCOUNTER 2024-06-06 06:19 | Day surgery (SDC) | payer OTHER ==
[2024-06-06] MEDS: Ringers Lactate 1,000 ML IV ONE (07:03)
[2024-06-06] MEDS ORDERED: LIDOCAINE 1% MPF 5 ML VIAL ONE (07:28)
[2024-06-06] MEDS ORDERED: propofoL 200 MG/20 ML VIAL IV ONE (07:28)
[2024-06-06] MEDS ORDERED: EPHEDRINE SULF 50 MG/ML VIAL ONE (07:29)
[2024-06-06 08:56] VITALS: O2SAT 100
[2024-06-06 08:57] VITALS: TEMP 97.6
[2024-06-06 09:10] VITALS: BP 104/52
[2024-06-06] MEDS ORDERED: GLYCOPYRROLATE 0.2 MG/ML SYR ONE (09:28)
== END 2024-06-06 09:20 | disposition home or self-care (01) ==
LOC: OR 06:19
PROVIDERS: ATTEND Internal Medicine Gastroenterology
PROC: 0DB78ZX Excision of Stomach, Pylorus, Via Natural or Artificial Opening Endoscopic, Diagnostic (ICD-10-PCS; 2024-06-06)
PROC: 0DB68ZX Excision of Stomach, Via Natural or Artificial Opening Endoscopic, Diagnostic (ICD-10-PCS; principal; 2024-06-06 07:30)
DX: C88.40 Extranodal marginal zone B-cell lymphoma of mucosa-associated lymphoid tissue [MALT-lymphoma] not having achieved remission (principal); R10.13 Epigastric pain; R93.3 Abnormal findings on diagnostic imaging of other parts of digestive tract; R14.2 Eructation; K21.9 Gastro-esophageal reflux disease without esophagitis; R68.81 Early satiety; K31.84 Gastroparesis; K25.7 Chronic gastric ulcer without hemorrhage or perforation; K25.9 Gastric ulcer, unspecified as acute or chronic, without hemorrhage or perforation; K29.50 Unspecified chronic gastritis without bleeding
CPT/HCPCS: 43239; 88312; 88305; J2704; J2003; J7120; 82941